=== PATIENT | female | born 1955 | race Caucasian/White ===

== ENCOUNTER 2017-04-22 05:45 | Day surgery (SDC) | payer BC, SELFPAY ==
--- NOTE | 2017-04-18 14:48 | EKG12_ITS ---
Test Reason : PRE OP Blood Pressure : / mmHG Vent. Rate : 084 BPM Atrial Rate : 084 BPM P-R Int : 146 ms QRS Dur : 072 ms QT Int : 382 ms P-R-T Axes : 074 071 071 degrees QTc Int : 451 ms Normal sinus rhythm Normal ECG Confirmed by DEBBIE PAIGE, RACHEL ([id number]), non linear editor MERY GOODE ([id number]) on 04/19/2017 12:00:07 PM Referred By: Fanta Holder Confirmed By:RACHEL LEWIS MD
[2017-04-18 16:07] LABS: Hematocrit 38.1 % (37-47); Hemoglobin 12.7 g/dl (12.0-15.0); Mean Corp Hgb Conc 33.3 g/gl (32-36); Mean Corpuscular Hgb 34.3 pg (27.0-32.0); Mean Platelet Vol. 11.2 fl (6.2-12.0); Platelet Count 225 K/mm3 (150-450); RBC Distribution Width SD 51.9 fl (35.1-43.9); White Blood Count 4.3 K/mm3 (4.4-11.0)
[2017-04-18 16:08] LABS: Scan Indicated on CBC? Y/N NO
[2017-04-22] VITALS (10 sets, daily range): BP systolic 105–169; BP diastolic 64–93; PULSE 68–124; RESP 16–20; TEMP 36.5–37.4; O2SAT 91–97; BMI 28.9
--- NOTE | 2017-04-22 | MASS_PTH ---
PATIENT: HENRY VIDES LOC: [facility] [place] U[place][id number] AGE/SX: 62/F ROOM: RE04/22/[address]: Dr. Fanta Holder MD : 1955 BED: DIS: 04/22/2017 SPEC #: [id number] RECD: 04/22/17 12:20 STATUS: GERARDO QUIQUE #: [id number] DAVE: 04/22/17 00:[address]: Fanta Holder DEPT: SURGICAL PATHOLOGY RECD BY: Lance Bentley ENTERED: 04/22/17 12:21 SP TYPE: Mass OTHR DR: Dr. 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 Fallopian tube - no pathologic diagnosis. Paratubal cyst. THIERRY:caty 04/26/17 MICROSCOPIC DESCRIPTION Slides are reviewed. GROSS DESCRIPTION Received in fixative is one container labeled with the patient's name and designated left adnexal mass. The specimen consists of a cystic, smooth glistening pink-white ovary measuring 7 x 5.5 x 3.2 cm. Adjacent to this is a fallopian tube measuring 5 cm in length and with an average diameter of 0.7 cm. Adjacent to the fimbriated end of the fallopian tube is a smooth, glistening cyst measuring 1.2 cm and containing clear fluid. No tubo-ovarian adhesions are identified. The fimbriated end has a normal villous appearance. The external surface of the ovary is smooth and glistening. No papillary projections or excrescences are seen. The external surface is inked and the ovary is serially sectioned. Serial sections reveal the ovary to contain hair, yellow-bain mucoid material and oily material. The cyst wall ranges in thickness from 0.1 to 0.3 cm with focal areas that cut with a gritty sensation. Assembly Leader sections are submitted in four cassettes as follows: 1 ? ovary, fallopian tube and paratubal cyst, 2-4 ? cystic structure and cystic ovary with #4 submitted after appropriate decalcification. / AM:caty 04/22/17 TC:1 CPT: 15116, 43805
--- NOTE | 2017-04-22 | FLU_PTH ---
PATIENT: HENRY VIDES [place] [facility] [place][id number] AGE/SX: 62/F ROOM: RE04/22/[address]: Dr. Fanta Holder MD : 1955 BED: DIS: 04/22/2017 SPEC #: [id number] RECD: 04/22/17 12:20 STATUS: GERARDO QUIQUE #: [id number] DAVE: 04/22/17 00:[address]: Fanta Holder DEPT: CYTOLOGY RECD BY: Lance Bentley ENTERED: 04/22/17 12:20 SP TYPE: Fluid OTHR DR: Dr. Robbi Grant DO Tissues: Pelvis, NOS Procedures: Pap Stain (control) Special Stain Group II Surgery Specimen Level IV Cell Block Cytospin Fluid HEADER OPERATION: Laparoscopic salpingo-oophorectomy, single port PRE-OP DIAGNOSIS: Left complex ovarian mass TISSUE SUBMITTED: Cell washings for cytology DIAGNOSIS CYTOLOGY Cell washings for cytology (cytospin and cell block): Negative for malignant cells. SJ:rg 04/26/17 CYTOLOGY STUDY Slides are reviewed. The specimen consists of mesothelial cells and inflammatory cells. CYTOLOGY GROSS Received is 2 ml of cloudy fluid labeled with the patient's name and and designated per the requisition as cell washings. Submitted for cytology preparation including cell block. 04/22/17 TC:5 CPT: 82052, 18009
[2017-04-22] MEDS: Lubricating Jelly 60 GM Tube 30 GM TOPICAL (07:30)
[2017-04-22] MEDS: Bupivacaine 0.25% 30 ML Vial (08:46)
--- NOTE | 2017-04-22 09:14 | PCM.DC.TUB ---
Discharge Diet: Light diet - advance as tolerated Discharge Activity: May Not Drive - for 72 hours, May Shower Return to work on:: 04/29/17 May resume sexual activity in: 2 weeks Call your doctor if your incision/area has: Continuous Slow Oozing, Sudden Increased Bleeding, Increased Pain/ Swelling Call your doctor if you observe: Fever of 101 or Higher, Inability to urinate, Inability to have a bowel movement, Uncontrolled pain Suture Line Care: Avoid Pulling/Pushing Remove Dressing in (days):: 2 Cleanse incision/area with: Keep Dressing Clean & Dry Allergies/Adverse Reactions: Allergies latex Allergy (Verified 04/17/17 14:21) blisters Medications to take at Discharge Escitalopram Oxalate [Lexapro] 20 mg PO DAILY 04/17/17 Lansoprazole [Prevacid] 15 mg PO DAILY 04/17/17 Valsartan [Diovan] 160 mg PO DAILY 04/17/17 Primary Care Physician: Robbi Grant DO [Primary Care Provider] - Please Follow Up With: Fanta Holder MD When: Proposed Discharge Date: 04/22/17
--- NOTE | 2017-04-22 09:16 | PCM.OP.BLANK ---
Problem List (1) Ovarian cyst, left Status: Acute Operative Report Date of Procedure: 04/22/17 Preop: Complex left ovarian cyst Post op: Complex left ovarian cyst Ahderent ovarian cuyst to posterior cul de sac fibroid uterus Procedure: Single incision laparoscopic left salpingooophorectomy\ EBL : 10ml UO : 200ml Asst: Eleazar Muse Complications: none noted Annesth: Maynor Tang Procedure: Under GA, pt was prepped and draped in sterile extended ski position and bush placed to continuous drainage. A Jarcho tenaclum was placed for uterine manipulation when the Hulka would not advance Following a glove change attention was turned to the abdomen where a subumbilical incision was made and peritoneum entered and the gelpoint placed. A pneumoperitoneum was created. The pelvis was inspected with findings of a normal Rt ovary and a large cystic left ovary which was smooth. No peritoneal seedlings were noted. The pelvis was irrigatedand 10 ml of washings sent for cytology. With traction on the uteroovarian ligament, the infundibulopelvic ligament was cauterized several times and cut with the harmonic scalpel. Cautery and cutting was continued along the broad ligament till the round ligament and cornua were excised. Effforts to lift the ovary out of the culde sac showed it was attached at it s base, and these adhesions had to be cauterized and cut over a 1 inch square area, to free the adnexa intact. It was brought to the subumbilical opening, where it would not fit through, so a large bore needle was used to aspirate the cystic part of the ovary for thick milky fluid, ensuring no spill into the abdominal cavity, and then the cyst could be removed. The pelvis was inspected for hemostasis which was good and irrigated out for some dark blood. There was no active bleeding at 8mm pressure, and the pneumoperitoneum was reduced and the subumbilical incision repaired with multiple interrupted 0 Vicryl sutures to fascia, 2-0 Vicryl to the subcutaneous tissue, and 4-0 Monocryl subcuticularly. 10 ml of 1/4% Bupivacaine was injected around the incision and an op site applied. Sponge , needle counts were correct x 2. Patient was taken to the recovery room awake and in stable condition
[2017-04-22] MEDS: HYDROcodone Bitartrate/Apap 5/325 Tablet PO (12:04)
== END 2017-04-22 12:40 | disposition home or self-care (01) ==
LOC: SDC 05:45 → AC 05:46
PROVIDERS: Family Provider Family Medicine; PCP Family Medicine; Visit Provider Obstetrics & Gynecology Gynecology
PROC: (CPT 58720; principal; 2017-04-22 07:15)
DX: D27.1 Benign neoplasm of left ovary (principal); D25.9 Leiomyoma of uterus, unspecified; N83.8 Other noninflammatory disorders of ovary, fallopian tube and broad ligament
CPT/HCPCS: 00840; 58661; 36415; 85027; 86850; 86900; 88108; 88305; 88307; 88311; 88313; 93005; J7120; J2405; J3490

== ENCOUNTER → 2017-12-10 14:05 | Outpatient (CLI) | payer BC, SELFPAY ==
[2017-12-10 15:14] LABS: Absolute Lymphocyte Count 1.11 X10^3/ul (0.83-4.51); Basophil# 0.02 X10^3/uL; Basophil% 0.4 % (0-1); Eosinophil# 0.25 X10^3/uL; Eosinophils% 4.9 % (0-5); Hematocrit 36.8 % (37-47); Lymphocyte # 1.11 X10^3/ul (4.0); Lymphocyte % 21.7 % (19-41); Mean Corp Hgb Conc 32.6 g/gl (32-36); Mean Corpuscular Hgb 33.3 pg (27.0-32.0); Mean Corpuscular Volume 102.2 fL (81-99); Mean Platelet Vol. 10.8 fl (6.2-12.0); Monocyte# 0.72 X10^3/uL; Monocyte% 14.1 % (0-10); Neutrophil # 3.02 X10^3/uL (2.7-7.7); Neutrophil % 58.9 % (47-70); Platelet Count 254 K/mm3 (150-450); RBC Distribution Width CV 14.2 % (11.6-14.6); RBC Distribution Width SD 53.3 fl (35.1-43.9); White Blood Count 5.1 K/mm3 (4.4-11.0)
[2017-12-10 15:15] LABS: POSITIVE COUNT NO; POSITIVE DIFFERENTIAL NO; POSITIVE MORPHOLOGY NO
[2017-12-10 15:46] LABS: ALB/GLOB Ratio 0.9 RATIO (0.9-2.4); AST(SGOT) 25 U/L (15-37); Alanine Aminotransfer ALT/SGPT 29 U/L (13-56); Albumin, Serum 3.4 g/dL (3.2-5.0); Alkaline Phosphatase 91 U/L (45-117); Anion Gap 10 (5-15); BUN 19 mg/dL (7-18); BUN/Creat Ratio 22.7 RATIO (10-20); Calcium,Total 8.3 mg/dL (8.5-10.1); Chloride 108 mmol/L (98-107); Creatinine, Serum 0.84 mg/dL (0.55-1.02); EST Glomerular Filtration Rate 73 mL/min (>60); Est Glom Filt Rate - Afr Amer 88 mL/min (>60); Globulin 3.8 g/dL (2.2-4.2); Glucose 95 mg/dL (74-106); Potassium 3.5 mmol/L (3.5-5.1); Protein, Total 7.2 g/dL (6.4-8.2); Sodium Level 142 mmol/L (136-145); Thyroid Stim Hormone (TSH) 1.15 uIU/mL (0.358-3.74)
== END ==
PROVIDERS: Family Provider Family Medicine; PCP Family Medicine; Visit Provider Family Medicine
DX: I10 Essential (primary) hypertension (principal)
CPT/HCPCS: 36415; 80053; 84443; 85025

== ENCOUNTER → 2018-02-26 11:59 | Outpatient (CLI) | payer BC, SELFPAY ==
[2018-02-26 14:12] LABS: CRP < 2.90 mg/L (0.0-3.0)
[2018-02-26 14:18] LABS: Vitamin D,25 Hydroxy 31.8 ng/mL (29.95-100.01)
[2018-02-27 16:09] LABS: Endomysial Antibody IgA Negative (Negative); Immunoglobulin A 127 mg/dL (87-352)
[2018-02-28 11:56] LABS: Hep C Antibodies <0.1 s/co ratio (0.0-0.9); t-Transglutaminase IgA <2 U/mL (0-3)
== END ==
PROVIDERS: Family Provider Family Medicine; PCP Family Medicine; Referring Provider Internal Medicine Gastroenterology; Visit Provider Internal Medicine Gastroenterology
DX: R19.7 Diarrhea, unspecified (principal); Z11.59 Encounter for screening for other viral diseases
CPT/HCPCS: 36415; 82306; 82784; 83516; 86140; 86255; 86803

== ENCOUNTER → 2019-12-08 12:51 | Outpatient (CLI) | payer BC, SELFPAY ==
--- NOTE | 2019-12-08 12:52 | BI_ITS ---
MAMMOGRAPHY - BILATERAL SCREENING REASON FOR EXAM: Female, 64 years old. Routine annual screening examination. PERTINENT HISTORY: Non-contributory. History of bilateral breast implants. TECHNIQUE: Digital bilateral breast sada (3D mammographic acquisition) in the CC and MLO projections. 2-D mediolateral oblique (MLO) and craniocaudad (CC) views of both breasts were obtained. CAD: Full Field Digital Mammography with Computer Added Detection was performed. COMPARISON: Comparison is made with prior examination 12/27/2015 and 02/08/2017. FINDINGS: Breast Composition: The breasts are heterogeneously dense, which may obscure small masses. There are no dominant masses or suspicious calcifications. Stable appearance of the bilateral breast implants. No other significant abnormalities are identified. There has been no significant change since the prior study. BI/SCREEN MAMM (CAD) W/SADA BILAT IMPRESSION: Stable bilateral screening mammogram. Yearly follow-up mammogram recommended. (A) ASSESSMENT CATEGORY: BIRADS Category 2: Benign. A letter regarding these results will be sent to the patient by the facility within 30 days. Approximately 10% of breast cancers are not detected by mammography. A normal mammogram should not delay biopsy of a clinically suspicious abnormality. [id number] Electronically Signed: Emerson Rico, at 13:58 EDT , Service support ,
--- NOTE | 2019-12-08 13:23 | BD_ITS ---
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 COMPARISON: Comparison is made with prior study dated 12/27/2015. FINDINGS: Lumbar Spine (L1-L4): g/cm2 (0.912) / T-score (-2.2) / Z-score (-0.6) Findings are suggestive of osteopenia with a high fracture risk. Left Femur Total: g/cm2 (0.912) / T-score (-0.8) / Z-score (0.5) Left Femoral Neck: g/cm2 (0.830) / T-score (-1.5) / Z-score (0.0) Right Femur Total: g/cm2 (0.852) / T-score (-1.2) / Z-score (0.0) Right Femoral Neck: g/cm2 (0.810) / T-score (-1.6) / Z-score (-0.2) The T-Scores on the most recent prior examination were: Lumbar Spine (L1-L4): There has been worsening of bone density since the previous examination. Left Femur Total: which represents an improvement of 0.1%. Right Femur Total: which represents a worsening of 3.3%. BD/Dexa Bone Density Study IMPRESSION: The patient is considered osteopenic as outlined below according to World Jean Organization (WHO) criteria with a high fracture risk. There has been worsening of bone density since the previous examination. Reference Information: The T-score is the number of standard deviations above or below the standard which is normal for young adults at their peak bone mineral density. The World Health Organization (WHO) interprets the T-scores as follows: Above -1 Normal bone density Between -1 and -2.5 Osteopenia Equal to / or below -2.5 Osteoporosis As a practical clinical guideline, osteopenia may be graded as follows: Mild -1 through -1.5 Moderate -1.6 through -2.0 Severe -2.1 through -2.4 The Z-score is the number of standard deviations above or below age-matched controls. A Z-score of less than -1.5 would be considered abnormal. References: 1. NIH Osteoporosis and Related Bone Diseases http://www.osteo.org 2. International Society for Clinical Densitometry http://www.iscd.org 3. National Osteoporosis Foundation http://www.nof.org Electronically Signed: Emerson Rico, at 15:33 EDT , Service support ,
== END ==
PROVIDERS: PCP Nurse Practitioner; Referring Provider Nurse Practitioner; Visit Provider Nurse Practitioner
DX: Z12.31 Encounter for screening mammogram for malignant neoplasm of breast (principal); Z78.0 Asymptomatic menopausal state
CPT/HCPCS: 77063; 77067; 77080

== ENCOUNTER → 2020-02-25 12:18 | Outpatient (CLI) | payer SELFPAY ==
--- NOTE | 2020-02-25 12:23 | CT_ITS ---
STUDY: CARDIAC CALCIUM SCORING - CT CHEST REASON FOR EXAM: Female, 64 years old. HTN RADIATION DOSAGE (If Supplied By Facility): CTDIvol = ( 12.19 ) mGy, DLP = ( 219.42 ) mGycm TECHNIQUE: Axial non-enhanced images were acquired through the heart for the sole purpose of measuring coronary artery calcium. Individualized dose optimization techniques were used for this CT. COMPARISON: None. FINDINGS: Visualized surrounding anatomy: Normal. Left Main Coronary Artery: 0 Left Anterior Descending Artery: 39.7 Left Circumflex Artery: 0.73 Right Coronary Artery: 0 Other: Large hiatal hernia noted. Status post left breast prosthesis placement Total Calcium Score: 40.5 CT/CCTA Calcium Scoring IMPRESSION: A Calcium Score of 40.5 places the patient in the approximate 50-75 percentile, based on the RODRIGUEZ data calculator. Please go to: www.rodriguez-nhlbi.org/Calcium/input.aspx , for a description of the calculator. Electronically Signed: Kurtis Cardenas MD at 19:24 EST , Service support ,
[2020-02-25 12:31] VITALS: BP 135/79; PULSE 62; RESP 14; O2SAT 95; BMI 25.7
--- NOTE | 2020-02-25 13:01 | CA.SCORE ---
Calcium Scoring Date of Study:: 02/25/20 Coronary Calcium Scoring: High-resolution Computed Tomographic imaging of the chest was performed on [02/25/2020 ], with particular attention paid to the coronary arteries. Images from the examination were analyzed for the presence and extent of coronary artery calcification , using coronary calcium quantification software. The patient tolerated the procedure well and there were no complications. The results of the coronary calcification analysis are provided below. - Findings Left Main (LM): 0 Left Anterior Descending (LAD): 39 Left Circumflex (LCX): 0.7 Right Coronary Artery (RCA): 0 Total Agatston Score: 39.7 Calcium Scoring Interpretation: 0 No identifiable atherosclerotic plaque. Very low cardiovascular disease risk. <5% chance of presence coronary artery disease A Negative Examination 1-10 Minimal Plaque burden. Significant coronary artery disease very unlikely. 11-100 Mild plaque burden. Likely mild or minimal coronary atherosclerosis. 101-400 Moderate plaque burden Moderate non-obstructive coronary artery disease highly likely. Over 400 Extensive plaque burden. High likelihood of at least one significant coronary stenosis (>50% diameter) Calcium Score: 11 - 100 Likely mild or minimal coronary stenosis - The above suggests mild coronary artery disease. Risk factor assessment should include
== END ==
PROVIDERS: PCP Nurse Practitioner; Referring Provider Nurse Practitioner; Visit Provider Nurse Practitioner
DX: I10 Essential (primary) hypertension (principal)
CPT/HCPCS: 75571; 76380

== ENCOUNTER 2020-05-14 15:14 | Emergency (ER) | payer OTHER, SELFPAY ==
[2020-02-25 12:31] VITALS: BMI 25.7
[2020-05-14 15:15] VITALS: BP 160/92; PULSE 77; RESP 18; TEMP 36.1; O2SAT 99; BMI 25.7
--- NOTE | 2020-05-14 15:33 | ED.DCSUM_ITS ---
History of Present Illness Chief Complaint: Upper Extremity Injury Informant: Patient Narrative: 65-year-old female states that she fell on the ice today falling onto her right hand. She notes her wrist. But swelling. Limited range of motion due to pain. She denies any other injuries. Past Medical History - Allergies and Home Meds Allergies/Adverse Reactions: Allergies latex Allergy (Verified 05/14/20 15:16) blisters Primary Care Physician: Celena Baca OPERATIONS ASSOCIATE, OPERATIONS ASSOCIATE-C [Primary Care Provider] - Past Medical History: - - GERD hypertension depression Surgical History: noncontributory Lives: Spouse/ Significant Other Smoking Status: Never smoker Drugs: None Review of Systems General: Denies: Chills, Fever, Sweats Eyes: Denies: Visual changes - bilaterally, Diplopia ENT: Denies: Rhinorrhea, Sore throat Cardiovascular: Denies: Chest pain, Palpitations Respiratory: Denies: Dyspnea, Cough, Dyspnea on exertion Gastrointestinal: Denies: Abdominal pain, Nausea, Vomiting, Diarrhea, Melena, Hematochezia Genitourinary: Denies: Dysuria, Hematuria, Frequency Musculoskeletal: Reports: Swelling, Extremity Pain. Denies: Back pain Skin: Denies: Rash, Wounds Neurological: Denies: Headache, Weakness, Numbness Physical Exam Vital Signs/Narrative: Vital Signs Temp Pulse Resp BP Pulse Ox 05/14/20 15:15 97 F L 77 18 160/92 H 99 Inital Vital Signs reviewed: Yes General: Well nourished, Well developed, No Acute Distress Head: Normocephalic, Atraumatic Eyes: Perrl, EOMI ENT: Moist mucous membranes, No rhinorrhea Neck: Supple, Nontender Cardiovascular: Regular rate, Regular rhythm, No murmurs Respiratory: No distress, CTA bilaterally, Chest nontender Abdomen: Soft, Nontender, Nondistended, Normal bowel sounds Back: Nontender, Normal Inspection Extremities: Tenderness - Tenderness and mild swelling over the dorsum of the right wrist. Limited range of motion due to pain. Neurovascular intact. No elbow shoulder findings. Fingers are without trauma. Skin: Normal color, No rash Neurological: Alert, Oriented x3, Cranial nerves II-XII grossly intact, Normal Strength, Normal Sensation Psychological: Normal affect, Normal Mood Diagnostic/Tx/Re-eval Clinical Impression(s) from Imaging Studies Wrist X-Ray 05/14/20 15:38 IMPRESSION: Transverse fracture of the distal radius extending to the distal radioulnar joint, no significant displacement but with mild volar apical angulation. Electronically Signed: Cecil Garcia MD (Brooks) at 16:01 EST , Service support , - Medical Decision Making My interpretation of three-view wrist films is no acute fracture of the distal radius with minimal displacement. Patient was placed in a well-padded AP plaster splint. Neurovascular intact pre and post application. Right for Webster for pain control. She is to follow-up with orthopedics. She does not remember who did her left wrist surgery in the past but believes it was [facility]. Dr. Lambert is on-call for them today. ED Disposition - Plan for ED Patient: Disposition: Home or Assisted Living Diagnosis: Distal radius fracture, right Instructions: ED Fracture, Wrist, General Prescriptions: Hydrocodone Bitart/Apap 5-325 [Webster 5MG-325MG] 1 tab PO Q4H PRN PRN 2 Days #10 tab PRN Reason: Pain Prescription Printed Referrals: Taye Lambert, [STAFF PHYSICIAN] - As soon as possible
--- NOTE | 2020-05-14 15:38 | RAD_ITS ---
EXAM: XR RIGHT WRIST COMPLETE, 3 OR MORE VIEWS CLINICAL INDICATION: FALL, SWELLING, PAIN TECHNIQUE: Frontal, lateral and oblique views of the right wrist. This report was created using [employer] report generation technology. COMPARISON: None. FINDINGS: BONES/JOINTS: Transverse fracture of the distal radius extending to the distal radioulnar joint, no significant displacement but with mild volar apical angulation. No sclerotic or destructive changes observed. SOFT TISSUES: Unremarkable. No soft tissue swelling or gas. No radiopaque foreign body. RAD/Wrist min 3 Views IMPRESSION: Transverse fracture of the distal radius extending to the distal radioulnar joint, no significant displacement but with mild volar apical angulation. Electronically Signed: Cecil Garcia MD (Brooks) at 16:01 EST , Service support ,
[2020-05-14 16:20] VITALS: RESP 14
== END 2020-05-14 16:30 | disposition home or self-care (01) ==
LOC: ED 16:40
PROVIDERS: Emergency Provider Emergency Medicine; PCP Nurse Practitioner
DX: S52.501A Unspecified fracture of the lower end of right radius, initial encounter for closed fracture (principal); W00.0XXA Fall on same level due to ice and snow, initial encounter; Y93.9 Activity, unspecified; Y92.9 Unspecified place or not applicable; F32.9 Major depressive disorder, single episode, unspecified; Z79.899 Other long term (current) drug therapy
CPT/HCPCS: 29125; 73110; 99282

== ENCOUNTER → 2020-07-05 09:39 | Outpatient (CLI) | payer OTHER, SELFPAY ==
--- NOTE | 2020-07-05 09:45 | RAD_ITS ---
STUDY: X-RAY - ESOPHAGUS (BARIUM SWALLOW) WITH FLUOROSCOPY REASON FOR EXAM: Female, 65 years old. HIATAL HERNIA TECHNIQUE: 15 view(s) of the esophagus were obtained following swallowing of barium. FLUOROSCOPY TIME (if supplied): (31 seconds) minutes/seconds COMPARISON: None. FINDINGS: There is no demonstrated esophageal foreign body. There is no demonstrated stricture or mucosal abnormality. There is a large hiatal hernia with intrathoracic herniation of the fundus of the stomach. No evidence of gastroesophageal reflux. The patient ingested a 12 mm tablet at bedtime without any difficulty. There is atherosclerotic tortuosity of the aortic arch and descending thoracic aorta. Normal visualized pulmonary parenchyma. Normal visualized osseous structures of the thorax. RAD/Esophagus Dual Contrast IMPRESSION: Large hiatal hernia. Electronically Signed: Emerson Rico MD at 15:28 EDT , Service support ,
== END ==
PROVIDERS: PCP Nurse Practitioner; Referring Provider Nurse Practitioner; Visit Provider Nurse Practitioner
DX: K44.9 Diaphragmatic hernia without obstruction or gangrene (principal)
CPT/HCPCS: 74221

== ENCOUNTER → 2020-07-25 14:48 | Outpatient (CLI) | payer OTHER, SELFPAY ==
[2020-07-19 14:43] VITALS: BMI 25.7
--- NOTE | 2020-07-25 14:49 | CT_ITS ---
INDICATION: right groin pain EXAMINATION: CT Pelvis W/ Contrast Injection TECHNIQUE: Helically acquired images were obtained of the pelvis after IV contrast. A radiation dose optimization technique was used for this scan. IV Contrast dosage and agent: 100 cc ISOVUE-300 Oral contrast: None. COMPARISON: None. FINDINGS: Vasculature: Unremarkable GI Tract: Unremarkable Lymphadenopathy: None Peritoneum: No ascites. Bladder: Unremarkable Reproductive organs: Multiple calcified fibroids. The vaginal wall is hyperenhancing. Bones/Soft tissues: Mild scattered degenerative changes of the visualized spine. 2.6 cm expansile lesion of the coccyx. CT/Pelvis WITH IV Contrast IMPRESSION: Multifibroid uterus. Hyperenhancing vaginal wall is of uncertain significance. A pelvic MRI may be beneficial if clinically warranted. 2.6 cm expansile lesion of the coccyx is indeterminate. Two possible etiologies include enchondroma or exostosis. Electronically Signed: Tyler Cruz MD at 23:30 EDT Tel , Service support ,
[2020-07-25 15:20] LABS: CREATININE FINGERSTICK 1.2 mg/dL (0.55-1.02)
== END ==
PROVIDERS: PCP Nurse Practitioner; Referring Provider Surgery; Visit Provider Surgery
DX: R10.31 Right lower quadrant pain (principal)
CPT/HCPCS: 72193

== ENCOUNTER 2020-08-08 21:40 | Emergency (ER) | payer OTHER, SELFPAY ==
[2020-07-19 14:43] VITALS: BMI 25.7
[2020-08-08 21:41] VITALS: BP 149/98; PULSE 101; RESP 16; TEMP 37.6; O2SAT 97; BMI 27.9
--- NOTE | 2020-08-08 22:17 | EKG12_ITS ---
Test Reason : CP Blood Pressure : / mmHG Vent. Rate : 087 BPM Atrial Rate : 087 BPM P-R Int : 148 ms QRS Dur : 078 ms QT Int : 362 ms P-R-T Axes : 065 056 060 degrees QTc Int : 435 ms Normal sinus rhythm Normal ECG Confirmed by IMMANUEL PAIGE, PREET ([id number]), editor continuity and script SAMMY GRIDER ([id number]) on 08/09/2020 10:10:05 AM Referred By: Confirmed By:PREET GAMBINO MD
[2020-08-08 22:22] VITALS: O2SAT 96
--- NOTE | 2020-08-08 22:25 | RAD_ITS ---
STUDY: X-RAY CHEST REASON FOR EXAM: Female, 65 years old. Epigastric pain and shortness of breath for 3 weeks. Pain increases with exertion and movement. TECHNIQUE: Single AP portable view of the chest. COMPARISON: None. FINDINGS: The lungs are clear and expanded. There is no demonstrated pleural abnormality. Normal size heart. Normal mediastinum and rachana. Normal visualized pulmonary arteries. There is atherosclerotic calcification of the aortic arch with tortuosity. Normal visualized thoracic spine. Normal visualized ribs, clavicles, and shoulders. Large retrocardiac hiatal hernia. RAD/Chest 1 View (Portable) IMPRESSION: Retrocardiac hiatal hernia. There is no acute cardiopulmonary disease. Electronically Signed: Gonzalo Moncada DO at 22:50 EDT Tel [phone], Service support ,
[2020-08-08 22:56] LABS: Absolute Lymphocyte Count 1.03 X10^3/uL (0.83-4.51); Absolute Neutrophil Count 5.6 X10^3/uL (2.0-7.7); Basophil# 0.04 X10^3/uL; Basophil% 0.5 % (0-1); Eosinophil# 0.19 X10^3/uL; Eosinophils% 2.4 % (0-5); Hematocrit 39.5 % (37-47); Hemoglobin 13.2 g/dL (12.0-15.0); Lymphocyte # 1.03 X10^3/ul (0.83-4.51); Lymphocyte % 12.8 % (19-41); Mean Corp Hgb Conc 33.4 g/dL (32-36); Mean Corpuscular Hgb 34.2 pg (27.0-32.0); Mean Corpuscular Volume 102.3 fL (81-99); Mean Platelet Vol. 10.6 fl (6.2-12.0); Monocyte# 1.17 X10^3/uL; Monocyte% 14.5 % (0-10); NRBC Flagged by Analyzer 0 % (0-5); Neutrophil % 69.4 % (47-70); Platelet Count 252 K/mm3 (150-450); RBC Distribution Width CV 13.2 % (11.6-14.6); Red Blood Count 3.86 M/mm3 (4.2-5.4); White Blood Count 8.1 K/mm3 (4.4-11.0)
[2020-08-08 23:00] VITALS: BP 149/93; PULSE 79; RESP 18; O2SAT 96
[2020-08-08 23:08] LABS: Anion Gap 5 (5-15); BUN 18 mg/dL (7-18); BUN/Creat Ratio 21.8 RATIO (10-20); Calcium,Total 8.9 mg/dL (8.5-10.1); Chloride 107 mmol/L (98-107); Creatinine, Serum 0.83 mg/dL (0.55-1.02); EST Glomerular Filtration Rate 73 mL/min (>60); Est Glom Filt Rate - Afr Amer 89 mL/min (>60); Estimated Creatinine Clearance 57.57 ml/min; Glucose 99 mg/dL (74-106); Potassium 3.5 mmol/L (3.5-5.1); Sodium Level 139 mmol/L (136-145)
[2020-08-08 23:25] LABS: Lactic Acid 0.7 mmol/L (0.4-1.9)
--- NOTE | 2020-08-08 23:43 | EDS_ITS ---
HPI History of Present Illness Chief Complaint: Chest Pain Informant: patient Narrative Narrative: Patient presented to the emergency department with chest pain and shortness of breath. She tells me that last month she was seen by surgery was found to have a large hiatal hernia and is currently awaiting testing so she can have surgery for that. She states at that time she had been relatively sedentary given that she was off work due to a wrist fracture from April. She states she is subsequently started back at work at [employer]. She states when she exerts herself she feels more short of breath and by the end of her shift she is having a lot of pain in her back and also in her chest. She notes early satiety. She notes she had a stress test several years ago that was negative. She states that the symptoms are similar to what they were when she saw surgery but are worsening. She is concerned that she may be strangulating her hernia. [facility] Medical History (Updated 08/08/20 @ 23:[address] Gilbert Watkins DO) Anxiety Celiac disease GERD (gastroesophageal reflux disease) Hiatal hernia HTN (hypertension) Home Medications escitalopram oxalate 10 mg PO DAILY 04/17/17 [History Last Taken Unknown] levomefolate calcium 15 mg tablet 15 mg PO DAILY 07/19/20 [History Last Taken Unknown] valsartan 40 mg PO DAILY 08/08/20 [History Last Taken Unknown] Allergy/AdvReac Type Severity Reaction Status Date / Time latex Allergy blisters Verified 08/08/20 21:44 Family History (Updated 07/19/20 @ 14:41 by Vida Johnson) Mother Hypertension Thyroid disorder Surgical History History of colonoscopy History of femoral hernia repair History of left oophorectomy Social History (Updated 08/08/20 @ 23:[address] Gilbert Watkins DO) Smoking Status: Never smoker substance use type: does not use ROS ROS ED Constitutional Constitutional ED: Denies chills or weight loss Eyes Eyes: Denies change in vision or diplopia ENT ENT ED: Denies ear pain, rhinorrhea or sore throat Cardiovascular Cardiovascular: Reports chest pain; Denies orthopnea, palpitations or racing heartbeat Respiratory/Chest Respiratory/Chest: Reports dyspnea; Denies cough or orthopnea Gastrointestinal Gastrointestinal: Denies abdominal pain, diarrhea, nausea or vomiting Genitourinary Genitourinary ED: Denies dysuria, hematuria or urinary frequency Musculoskeletal Musculoskeletal: Reports back pain; Denies arthralgias or myalgias Integumentary Denies abscess or rash Neurologic Neurologic: Denies headache(s) or weakness Psychiatric Psychiatric: Denies anxiety, depression, suicidal ideation or suicidal thoughts Endocrine Endocrinology: Denies polydipsia, polyphagia or polyuria Allergic/Immunologic Allergic/Immunologic ED: Denies mouth swelling, tongue swelling or urticaria EXAM Physical Exam Const Vital Signs: 08/08/20 21:41 08/08/20 22:22 08/08/20 23:00 Temperature 99.6 F H Temperature Source Temporal Pulse Rate 101 H 79 Respiratory Rate 16 18 Blood Pressure 149/98 H 149/93 H Blood Pressure Mean 115 111 Pulse Ox 97 96 96 Oxygen Delivery Method Room Air Room Air Room Air Positive well nourished and well developed General Appearance ED: well developed HEENT Reports normocephalic, head/scalp atraumatic and moist mucous membranes Eyes PERRL and EOMs intact bilaterally Neck no lymphadenopathy, supple and no JVD Resp normal respiratory effort and clear to auscultation bilaterally Cardio regular rate, regular rhythm and no murmurs GI normal to inspection, nondistended, normoactive bowel sounds and non-tender Palpation: soft Back/Spine no CVA tenderness and normal ROM Extremity normal to inspection General Extremety ED: Negative for edema General Extremity: Negative for edema Neuro oriented x3 and CN's II-XII intact bilaterally Sensorium / Orientation: alert Motor Exam: strength 5/5 throughout Psych mental status grossly normal Mood & Affect: Negative for depressed or tearful Skin no rashes or lesions noted and no wounds MDM MDM MDM Narrative Medical decision making narrative: My interpretation of the chest x-ray is hiatal hernia. Troponin is negative. Her lactic acid is normal. White count is normal. EKG is a normal sinus rhythm with no concerning features. I think is most likely that the patient's symptoms are related to her hiatal hernia. Patient was advised that she should call her surgeon inform them of worsening symptoms. She is worried because she does not have any further testing until August and does not have a follow-up until September 06. Patient to return if worsening or concerns Lab Data Attestation: I reviewed the patient's lab results. Labs: Laboratory Results - last 24 hr 08/08/20 08/08/20 08/08/20 22:00 22:00 22:52 WBC 8.1 RBC 3.86 L Hgb 13.2 Hct 39.5 MCV 102.3 H MCH 34.2 H MCHC 33.4 RDW Std Deviation 50.0 H RDW Coeff of Demetri 13.2 Plt Count 252 MPV 10.6 Immature Gran % (Auto) 0.400 Neut % (Auto) 69.4 Lymph % (Auto) 12.8 L [place] % (Auto) 14.5 H Eos % (Auto) 2.4 Baso % (Auto) 0.5 Absolute Neuts (auto) 5.6 Absolute Lymphs (auto) 1.03 Nucleated RBC % 0 Sodium 139 Potassium 3.5 Chloride 107 Carbon Dioxide 27.0 Anion Gap 5 BUN 18 Creatinine 0.83 Estim Creat Clear Calc 57.57 Est GFR (MDRD) Af Amer 89 Est GFR (MDRD) Non-Af 73 BUN/Creatinine Ratio 21.8 H Glucose 99 Lactic Acid 0.7 Calcium 8.9 Troponin I < 0.015 Radiography Diagnostic Testing: Radiology Impression Chest X-Ray 08/08/20 22:25 IMPRESSION: Retrocardiac hiatal hernia. There is no acute cardiopulmonary disease. Electronically Signed: Gonzalo Moncada DO at 22:50 EDT Tel [phone], Service support , EKG Initial EKG: Attestation: I personally reviewed and interpreted this EKG as follows: Comments: EKG is a normal sinus rhythm at a rate of 87 with no concerning features of ACS or ectopy noted Discharge Plan Triage Chief Complaint: Chest Pain ED Provider: Gilbert Watkins Dx/Rx/DC Orders Clinical Impression: Chest pain, Dyspnea, Hernia, hiatal Instructions: ED Hiatal Hernia Prescriptions: No Action levomefolate calcium 15 mg tablet 15 mg PO DAILY RF: 0 escitalopram oxalate 20 MG tablet 10 mg PO DAILY RF: 0 valsartan 40 mg Tablet 40 mg PO DAILY RF: 0 Primary Care Provider: Celena Baca NP Referrals: Beau Randolph MD [STAFF PHYSICIAN] - (Please call the office in the morning and inform them of your worsening symptoms in her ED visit) Celena Baca REPROGRAPHICS ASSOCIATE, REPROGRAPHICS ASSOCIATE-C [Primary Care Provider] - Disposition Disposition: Home, self care
[2020-08-09 00:07] VITALS: BP 165/105; PULSE 78; RESP 15; O2SAT 98
== END 2020-08-09 00:07 | disposition home or self-care (01) ==
PROVIDERS: Emergency Provider Emergency Medicine; PCP Nurse Practitioner
DX: K44.9 Diaphragmatic hernia without obstruction or gangrene (principal); R07.9 Chest pain, unspecified; R06.00 Dyspnea, unspecified; K21.9 Gastro-esophageal reflux disease without esophagitis; I10 Essential (primary) hypertension; F41.9 Anxiety disorder, unspecified; K90.0 Celiac disease; Z79.899 Other long term (current) drug therapy
CPT/HCPCS: 71045; 80048; 83605; 84484; 85025; 93005; 99285; A4216

== ENCOUNTER 2020-08-26 05:14 | Day surgery (SDC) | payer OTHER, SELFPAY ==
[2020-07-19 14:43] VITALS: BMI 25.7
[2020-08-26] VITALS (9 sets, daily range): BP systolic 118–161; BP diastolic 66–108; PULSE 70–78; RESP 16–18; TEMP 36.7; O2SAT 94–100; BMI 27.4
--- NOTE | 2020-08-26 05:19 | HP.PCM_ITS ---
History and Physical Date of Admission: 08/26/20 Intake Visit Reasons: Hiatal Hernia Chief Complaint: hiatal hernia / GERD Stone Trimmer Required: No Is patient in pain?: No Allergies latex Allergy (Verified 07/19/20 14:42) blisters Medications escitalopram oxalate 10 mg PO DAILY 04/17/17 [History Confirmed 07/19/20] apple cider vinegar 300 mg PO DAILY 05/14/20 [History Confirmed 07/19/20] levomefolate calcium 15 mg tablet 15 mg PO DAILY 07/19/20 [History Confirmed 07/19/20] Is last menstrual period known: No Post menopausal: Yes Patient : No <Dr. Beau Randolph MD - Last Filed: 07/19/20 16:32> Vital Signs 07/19/20 14:41 07/19/20 14:43 Height 5 ft 4 in Weight: 163 lb 8 oz BMI 28.0 25.7 BP 144/90 H Blood Pressure Location Rt radial Position Sitting Respiration 18 Pulse 88 Pulse Source NIBP Temp 97.4 F L Temp Source Temporal Pulse Oximetry (%) 96 Oxygen Delivery Method room air PFSH <Vida Johnson - Last Filed: 07/19/20 14:43> Surgical History (Updated 07/19/20 @ 14:33 by Vida Johnson) History of colonoscopy History of femoral hernia repair History of left oophorectomy Family History (Updated 07/19/20 @ 14:41 by Vida Johnson) Mother Hypertension Thyroid disorder Social History Smoking Status: Never smoker HPI <Vida Johnson - Last Filed: 07/19/20 14:43> HPI HPI: HENRY VIDES, is a 65 F who presents to the office today for <Dr. Beau Randolph MD - Last Filed: 07/19/20 16:32> HPI HPI: 65-year-old female. She is referred by Celena Baca CNP and a written copy my surgical consult recommendations will be returned to her. The patient's been having trouble with reflux problems. She has some retrosternal pressure and discomfort. She has problems with reflux indigestion epigastric pain constant clearing of her throat. Previously she had been on constant acid reducing medications and now she uses Tums and acid on a as needed basis. She has known celiac disease. Her symptoms have been progressive over 4 years To help evaluate this at the [facility] on July 05, 2020 she had a esophagram. This demonstrates a large hiatal hernia with intrathoracic herniation of the fundus of the stomach. The patient surgical history includes a previous cholecystectomy and oophorectomy and she states I assisted her in 2007 with a left femoral hernia repair. She has additional concerns today and that she has been having trouble with right groin and anterior thigh sharp pain that is relieved by flexing her her thigh. She is not able to detect a bulge on the right. Her femoral hernia repair was on the left. HPI <Vida Johnson - Last Filed: 07/19/20 14:43> HPI HPI: HENRY VIDES, is a 65 F who presents to the office today for ROS <Vida Johnson - Last Filed: 07/19/20 14:43> General General: No weight change, appetite, fatigue, colon cancer, breast cancer or weakness HEENT HEENT: No difficulty swallowing, eye injury, eye surgery, swollen glands or hoarseness Endo Endocrine: No thyroid disease, diabetes mellitus, thyroid cancer, Hair loss, heat intolerance or cold intolerance Musc Musculoskeletal: Yes arthritis; No back problems, rheumatoid arthritis, gout or joint pain Cardio Cardiovascular: Yes high blood pressure; No murmur, pacemaker, heart disease, atrial fibrillation, heart attack, heart stent, palpitations, shortness of breat with exertion or chest pain Psych Psychiatric: Yes anxiety; No depression or hearing voices Resp Respiratory: Yes shortness of breath, No sleep apnea, No cough, No COPD, No ast hma, No emphysema and No wheezing Gastro Gastrointestinal: No abdominal pain, No nausea or vomiting, No diarrhea, No constipation, No blood in stool, Yes acid reflux, No hemorrhoids, No ulcers, No gallbladder problem and No black,tarry stools Nolan Hematologic: No blood thinners, No blood disorders, No bleeding, No anemia and No blood clots Neuro Neurologic: No weakness Exam <Vida Johnson - Last Filed: 07/19/20 14:43> Cardio Heart Sounds: no murmurs <Dr. Beau Randolph MD - Last Filed: 07/19/20 16:32> Const General: cooperative, healthy appearing and comfortable HENMT Head: normal to inspection Neck Neck: normal visual inspection Resp Effort & Inspection: normal respiratory effort Cardio Rate: regular rate Rhythm: regular rhythm GI Other: Soft, well-healed oblique right subcostal gallbladder incision, no hepatosplenomegaly, normal bowel sounds Other: Right groin examined with nursing present. No focal mass. Mild discomfort. Patient examined upright and supine. No gross inguinal defect. No palpable femoral defect. Not pulsatile Musc Cervical Spine: normal cervical lordosis Skin General: no rashes or lesions noted Neuro General: patient alert, patient awake and patient oriented x3 Extrem General: no calf tenderness bilaterally Assessment and Plan <Vida A Alex - Last Filed: 07/19/20 14:43> Assessment and Plan (1) HTN (hypertension): Status: Chronic (2) Osteoarthritis: Status: Acute (3) Celiac disease: Status: Acute (4) Hiatal hernia: Status: Acute (5) Ovarian cyst, left: Status: Acute (6) GERD (gastroesophageal reflux disease): Status: Acute (7) Anxiety: Status: Acute <Dr. Beau Randolph MD - Last Filed: 07/19/20 16:32> Assessment and Plan (1) Right groin pain: Plan: Regarding the patient's right groin pain I am not able to clinically detect a inguinal or femoral hernia. I do recommend a pelvic CT to image this area. I have personally reviewed the patient esophagram. She has a large component of intrathoracic stomach. I do propose for her a esophagogastroduodenoscopy with possible biopsy. Careful esophageal measurement will be performed. I additionally recommend to her esophageal manometry. I will then have the patient return to the office. At this point I have recommended to the patient that we consider a laparoscopic repair of her hiatal hernia utilizing suture pledgets. I anticipate likely utilizing a laparoscopic toupet procedure. She has had an opportunity to ask and have questions answered. I very much appreciate the kind opportunity of assisting with her surgical care. Subsequent to the testing we will have the patient return to the office for further surgical discussion. Copy: Celena Baca, DELANEY Randolph M.D., F.A.C.S. The patient did have a recent emergency room visit because of complaint of chest pain. She was evaluated through the emergency room and it was felt likely her chest discomfort was secondary to her large hiatal hernia. It was recommended t o her that she continue to pursue evaluation. The patient was concerned that she might have incarceration. There were no findings to suggest that at that time. We will proceed with the planned esophagogastroduodenoscopy. She has manometry scheduled on Saturday, August 29, 2020. Beau Randolph M.D., F.A.C.S.
[2020-08-26] MEDS: Lactated Ringers 1,000 ML 100 ML IV (05:50)
--- NOTE | 2020-08-26 06:30 | EGD_PTH ---
PATIENT: HENRY VIDES LOC: EN U#:[id number] AGE/SX: 65/F ROOM: RE08/26/[address]: Dr. Beau Randolph MD : 1955 BED: DIS: 08/26/2020 SPEC #: [id number] RECD: 08/26/20 11:01 STATUS: GERARDO QUIQUE #: [id number] DAVE: 08/26/20 06:[address]: Beau Randolph DEPT: SURGICAL PATHOLOGY RECD BY: Gisele Blake ENTERED: 08/26/20 12:02 SP TYPE: EGD BIOPSY OTHR DR: Celena Baca, PHYSICAL THERAPY AIDE-C Tissues: A - Duodenum, NOS B - Duodenum, NOS C - Gastric mucous membrane D - Gastric mucous membrane Procedures: Special Stain Group II Surgery Specimen Level IV Alcian Blue/PAS (control) HEADER OPERATION: EGD (MOD) PRE-OP DIAGNOSIS: GERD, right groin pain, hiatal hernia TISSUE SUBMITTED: A ? Duodenal polyp biopsy, B ? Duodenum biopsy, C ? GE junction biopsy, D ? Antrum for H. pylori and path MICROSCOPIC DIAGNOSIS A. 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 B. Duodenum, biopsy: Fragments of gastric and small intestinal mucosa with mild to moderate nonspecific chronic inflammation. See comment. C. GE junction, biopsy: Fragments of gastroesophageal mucosa with focal ulceration, acute and chronic inflammation and changes consistent with gastroesophageal reflux disease. Intestinal metaplasia (goblet cell metaplasia) is not identified. See comment. D. Gastric antrum, biopsy: Mild gastritis. See microscopic description and comment. SJ:rg 08/29/2020 COMMENT B. The specimen predominantly consists of gastric mucosa. C. Alcian blue/PAS stain with matched control is used in the evaluation of the specimen. D. The results of immunohistochemistry for Helicobacter pylori will be reported separately ([id number]). Case has been reviewed in consultation with Dr. Neal who concurs with the above diagnosis. IDC:AM MICROSCOPIC DESCRIPTION Slides are reviewed. D. The specimen shows fragments of gastric mucosa with chronic inflammatory cell infiltrates in the lamina propria consisting of lymphocytes and plasma cells, consistent with mild chronic gastritis. GROSS DESCRIPTION A - Received in fixative is one container labeled with the patient's name and designated duodenal polyp biopsy. The specimen consists of one irregular fragment of light de la cruz soft tissue that measures 0.3 x 0.2 x 0.1 cm. The specimen is totally submitted in one cassette. B - Received in fixative is one container labeled with the patient's name and designated duodenum biopsy. The specimen consists of two irregular fragments of light de la cruz soft tissue that in aggregate measure 0.3 x 0.2 x 0.1 cm. The specimen is totally submitted in one cassette. C - Received in fixative is one container labeled with the patient's name and designated GE junction. The specimen consists of multiple irregular fragments of light de la cruz soft tissue that in aggregate measure 0.7 x 0.5 x 0.1 cm. The specimen is totally submitted in one cassette. D - Received in fixative is one container labeled with the patient's name and designated gastric antrum. The specimen consists of one irregular fragment of light de la cruz soft tissue that measures 0.7 x 0.3 x 0.1 cm. The specimen is totally submitted in one cassette. / AM:caty 08/26/20 TC:3 [facility]: [id number] x4, [id number]
--- NOTE | 2020-08-26 06:30 | IMM_PTH ---
PATIENT: HENRY VIDES LOC: EN U#:[id number] AGE/SX: 65/F ROOM: RE08/26/[address]: Dr. Beau Randolph MD : 1955 BED: DIS: 08/26/2020 SPEC #: [id number] RECD: 08/26/20 13:12 STATUS: GERARDO REQ #: [id number] DAVE: 08/26/20 06:[address]: Beau Randolph DEPT: IMMUNOHISTOCHEMISTRY RECD BY: Tiera Quiroz ENTERED: 08/26/20 13:13 SP TYPE: IMMUNO OTHR DR: Celena Baca, COMPOSITE ENGINEER-C Tissues: D - Stomach, NOS Procedures: H Pylori (initial) PHYSICIAN & INSTITUTION [facility] [phone] SPECIMEN INFORMATION: Tissue Source: D ? Antrum biopsy Clinical Info: GERD; right groin pain; hiatal hernia Specimen Number: [id number] CPT code: 28295 METHODOLOGY: Deparaffinized sections of prefer/formalin-fixed tissue or PAP/DQ stained slides are incubated with monoclonal/polyclonal antibodies/oligonucleotide probes. Localization is made via biotin free immunoperoxidase method. Appropriate controls are performed and reacted as expected. Results on target cell population are indicated in the following table: RESULTS: ANTIBODY / CLONE RESULT Block D H Pylori (polyclonal) negative These tests were developed and their performance characteristics determined by [facility]. They may not have been cleared or approved by the U.S. Food and Drug Administration. The FDA has determined that such clearance or approval is not necessary. INTERPRETATION: D. Antrum biopsy: Negative for Helicobacter pylori organisms. SJ:caty 08/29/2020
--- NOTE | 2020-08-26 15:09 | OP.EGD_ITS ---
Patient Name: Krystal Carver Procedure Date: 08/26/2020 6:09 AM Date of : 1955 Age: 65 Procedure: Upper GI endoscopy Indications: Epigastric abdominal pain Providers: Beau Randolph MD Medicines: Midazolam 3 mg IV, Meperidine 75 mg IV Complications: No immediate complications. Procedure: Pre-Anesthesia Assessment: - Prior to the procedure, a History and Physical was performed, and patient medications and allergies were reviewed. The patient's tolerance of previous anesthesia was also reviewed. The risks and benefits of the procedure and the sedation options and risks were discussed with the patient. All questions were answered, and informed consent was obtained. Prior Anticoagulants: The patient has taken no previous anticoagulant or antiplatelet agents. ASA Grade Assessment: II - A patient with mild systemic disease. After reviewing the risks and benefits, the patient was deemed in satisfactory condition to undergo the procedure. After obtaining informed consent, the endoscope was passed under direct vision. Throughout the procedure, the patient's blood pressure, pulse, and oxygen saturations were monitored continuously. The gastroscope was introduced through the mouth, and advanced to the second part of duodenum. The upper GI endoscopy was accomplished without difficulty. The patient tolerated the procedure well. Moderate Sedation: Moderate (conscious) sedation was personally administered by the endoscopist. The following parameters were monitored: oxygen saturation, heart rate, blood pressure, and response to care. Total physician intraservice time was 15 minutes. Scope In: 6:31:59 AM Scope Out: 6:40:39 AM Total Procedure Duration Time 0 hours 8 minutes 40 seconds Findings: LA Grade A (one or more mucosal breaks less than 5 mm, not extending between tops of 2 mucosal folds) esophagitis with no bleeding was found 33 cm from the incisors. Biopsies were taken with a cold forceps for histology. A large hiatal hernia was present. Diffuse mildly erythematous mucosa without bleeding was found in the gastric antrum. Biopsies were taken with a cold forceps for histology. A single 5 mm sessile polyp was found in the duodenal bulb. The polyp was removed with a cold biopsy forceps. Polyp resection was incomplete, and the resected tissue was partially retrieved. Localized nodular mucosa was found in the duodenal bulb. Biopsies were taken with a cold forceps for histology. Impression: - LA Grade A reflux esophagitis. Biopsied. - Large hiatal hernia. - Erythematous mucosa in the antrum. Biopsied. - A single duodenal polyp. Polyp resection was incomplete, and the resected tissue was partially retrieved. - Nodular mucosa in the duodenal bulb. Biopsied. Recommendation: - Discharge patient to home. - Resume previous diet. - Continue present medications. - Return to my office in 1 week. Procedure Code(s): --- Professional --- 37605, Esophagogastroduodenoscopy, flexible, transoral; with biopsy, single or multiple 96246, 59, Moderate sedation services provided by the same physician or other qualified health manager managed care performing the diagnostic or therapeutic service that the sedation supports, requiring the presence of an independent trained observer to assist in the monitoring of the patient's level of consciousness and physiological status; initial 15 minutes of intraservice time, patient age 5 years or older Diagnosis Code(s): --- Professional --- K21.0, Gastro-esophageal reflux disease with esophagitis K44.9, Diaphragmatic hernia without obstruction or gangrene K31.89, Other diseases of stomach and duodenum K31.7, Polyp of stomach and duodenum R10.13, Epigastric pain CPT copyright 2017 [employer]. All rights reserved. The codes documented in this report are preliminary and upon cst review may be revised to meet current compliance requirements. Beau Randolph MD 08/26/2020 6:47:28 AM This report has been signed electronically. Number of Addenda: 0 Note Initiated On: 08/26/2020 6:09 AM
--- NOTE | 2020-08-26 15:09 | OP.CCLET_ITS ---
08/26/2020 Celena Baca, SANDY [address] [place] [address] Re : Upper GI endoscopy procedure for Krystal Carver Dear Ms. Baca This procedure was performed on Wednesday, August 26, 2020. My impressions and recommendations are as follows: Impressions : - LA Grade A reflux esophagitis. Biopsied. - Large hiatal hernia. - Erythematous mucosa in the antrum. Biopsied. - A single duodenal polyp. Polyp resection was incomplete, and the resected tissue was partially retrieved. - Nodular mucosa in the duodenal bulb. Biopsied. Recommendations : - Discharge patient to home. - Resume previous diet. - Continue present medications. - Return to my office in 1 week. My findings are described in the full procedure note, which is enclosed. If I can be of further assistance, please feel free to contact me at Doctor phone number(s): Work: . Sincerely, Beau Randolph MD 08/26/2020 6:47:28 AM This report has been signed electronically.
== END 2020-08-26 07:22 ==
LOC: EN 05:17 → AC 05:17
PROVIDERS: PCP Nurse Practitioner; Referring Provider Nurse Practitioner; Visit Provider Surgery
PROC: (CPT 43239; principal; 2020-08-26 06:25)
DX: K29.70 Gastritis, unspecified, without bleeding (principal); K21.00 Gastro-esophageal reflux disease with esophagitis, without bleeding; K44.9 Diaphragmatic hernia without obstruction or gangrene; K31.7 Polyp of stomach and duodenum; I10 Essential (primary) hypertension; F41.9 Anxiety disorder, unspecified; K90.0 Celiac disease; M19.90 Unspecified osteoarthritis, unspecified site; Z79.899 Other long term (current) drug therapy
CPT/HCPCS: 43239; 88305; 88313; 88342; 99152; 99153; J7120

== ENCOUNTER 2020-08-29 07:51 | Day surgery (SDC) | payer OTHER, SELFPAY ==
[2020-07-19 14:43] VITALS: BMI 25.7
[2020-08-26 05:50] VITALS: BMI 27.4
[2020-08-29 08:04] VITALS: BP 149/89; PULSE 83; RESP 16; TEMP 36.3; O2SAT 95
[2020-08-29] MEDS: Lidocaine Jelly 2% 20 ML Syringe (URO-JET) 20 APPLIC (08:04)
== END 2020-08-29 08:38 ==
LOC: EN 07:52
PROVIDERS: PCP Nurse Practitioner; Referring Provider Nurse Practitioner; Visit Provider Surgery
PROC: F00ZJWZ Instrumental Swallowing and Oral Function Assessment using Swallowing Equipment (ICD-10-PCS; CPT 43235; principal; 2020-08-29 07:55)
DX: K44.9 Diaphragmatic hernia without obstruction or gangrene (principal)
CPT/HCPCS: 91010; 91013

== ENCOUNTER 2020-09-07 10:43 | Observation (INO) | payer OTHER, MEDICARE, SELFPAY ==
[2020-09-01 10:03] VITALS: BMI 27.4
--- NOTE | 2020-09-05 15:57 | EKG12_ITS ---
Test Reason : PRE SURGERY Blood Pressure : / mmHG Vent. Rate : 072 BPM Atrial Rate : 072 BPM P-R Int : 154 ms QRS Dur : 080 ms QT Int : 398 ms P-R-T Axes : 068 064 061 degrees QTc Int : 435 ms Normal sinus rhythm Normal ECG Confirmed by DEBBIE PAIGE, RACHEL ([id number]), editor city [place] GRIDER ([id number]) on 09/06/2020 9:00:54 AM Referred By: Beau Randolph Confirmed By:RACHEL LEWIS MD
[2020-09-05 17:23] LABS: Hematocrit 37.7 % (37-47); Hemoglobin 12.6 g/dL (12.0-15.0); Mean Corp Hgb Conc 33.4 g/dL (32-36); Mean Corpuscular Hgb 33.1 pg (27.0-32.0); Mean Platelet Vol. 10.7 fl (6.2-12.0); Platelet Count 209 K/mm3 (150-450); RBC Distribution Width CV 13.1 % (11.6-14.6); RBC Distribution Width SD 47.7 fl (35.1-43.9); Red Blood Count 3.81 M/mm3 (4.2-5.4); White Blood Count 4.3 K/mm3 (4.4-11.0)
[2020-09-05 17:37] LABS: Anion Gap 9 (5-15); BUN 17 mg/dL (7-18); BUN/Creat Ratio 25.4 RATIO (10-20); Calcium,Total 8.8 mg/dL (8.5-10.1); Chloride 109 mmol/L (98-107); Creatinine, Serum 0.67 mg/dL (0.55-1.02); EST Glomerular Filtration Rate 94 mL/min (>60); Est Glom Filt Rate - Afr Amer 113 mL/min (>60); Glucose 87 mg/dL (74-106); Potassium 3.5 mmol/L (3.5-5.1); Sodium Level 141 mmol/L (136-145)
[2020-09-07] VITALS (14 sets, daily range): BP systolic 121–152; BP diastolic 71–98; PULSE 64–97; RESP 16–18; TEMP 35.9–37.3; O2SAT 94–97; BMI 28.7
--- NOTE | 2020-09-07 05:29 | PCM.HP.BLA ---
History and Physical Date of Admission: 09/07/20 Intake Visit Reasons: Discuss testing and HH repair Chief Complaint: Discuss Hiatal hernia repair Stage Director Required: No Is patient in pain?: No (not at this time- pt stated she hasn't ate) Allergies latex Allergy (Verified 09/01/20 10:05) blisters Medications escitalopram oxalate 10 mg PO DAILY 04/17/17 [History Confirmed 09/01/20] levomefolate calcium 15 mg tablet 15 mg PO DAILY 07/19/20 [History Confirmed 09/01/20] valsartan 40 mg PO DAILY 08/08/20 [History Confirmed 09/01/20] omeprazole 20 mg PO DAILY 08/26/20 [History Confirmed 09/01/20] [facility] Medical History (Updated 09/01/20 @ 10:[address] Beau Randolph MD) Anxiety Celiac disease GERD (gastroesophageal reflux disease) Hiatal hernia HTN (hypertension) Surgical History History of colonoscopy History of femoral hernia repair History of left oophorectomy Family History Mother Hypertension Thyroid disorder Social History Smoking Status: Never smoker substance use type: does not use HPI HPI HPI: KRYSTAL CARVER, is a 65 F who presents to the office today for ongoing surgical consultation regarding retrosternal discomfort esophageal dysphagia and reflux disease At the patient's initial office visit she also also complained of right groin pain. A CT scan was obtained. This suggested possible vaginal wall thickening and a coccygeal lesion. She was contacted and advised to seek follow-up with [facility] and orthopedics. At the time of her upper endoscopy she was rereminded and she had already seen [facility] and we again encouraged an orthopedic visit and she states that she would follow through with scheduling her own appointment. [facility] [id number] [place] [address] Pelvis WITH IV Contrast MR#: [id number]:[id number]: KRYSTAL CARVER LRep #:[id number]: [id number] From: Tyler Cruz MDPCP:Celena Baca, M[employer] SALES REPRESENTATIVE-C Status:REG CLIStudy:Pelvis WITH IV Contrast Date of Exam:07/25/20Exam#[id number] Ordering Dr: Beau Randolph MD INDICATION: right groin pain EXAMINATION: CT Pelvis W/ Contrast Injection TECHNIQUE: Helically acquired images were obtained of the pelvis after IV contrast. A radiation dose optimization technique was used for this scan. IV Contrast dosage and agent: 100 cc [id number] Oral contrast: None. COMPARISON: None. FINDINGS: Vasculature: Unremarkable GI Tract: Unremarkable Lymphadenopathy: None Peritoneum: No ascites. Bladder: Unremarkable Reproductive organs: Multiple calcified fibroids. The vaginal wall is hyperenhancing. Bones/Soft tissues: Mild scattered degenerative changes of the visualized spine. 2.6 cm expansile lesion of the coccyx. CT/Pelvis WITH IV Contrast IMPRESSION: Multifibroid uterus. Hyperenhancing vaginal wall is of uncertain significance. A pelvic MRI may be beneficial if clinically warranted. 2.6 cm expansile lesion of the coccyx is indeterminate. Two possible etiologies include enchondroma or exostosis. Electronically Signed: Tyler Cruz MD at 23:30 EDT Tel , Service support , Regards her retrosternal discomfort and reflux disease she had the esophagram as noted and then she ended up having an upper endoscopy as noted below. She is also had manometrics To help evaluate this at the [facility] on July 05, 2020 she had a esophagram. This demonstrates a large hiatal hernia with intrathoracic herniation of the fundus of the stomach. The patient had manometry with test results pending. Apparently this was a very difficult and felt to be an adequate exam due to the size of her hiatal hernia and bladder finding of the device. The patient claims that she now is so severe that she cannot return to work. She has severe retrosternal discomfort and a squishy bubble like feeling. If she does any lifting the symptoms are immediately aggravated. She has just recently as of yesterday been increased to omeprazole 40 mg twice daily. The patient surgical history includes a previous cholecystectomy and oophorectomy and she states I assisted her in 2007 with a left femoral hernia repair. August 26, 2020 MICROSCOPIC DIAGNOSIS A. 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 B. Duodenum, biopsy:Fragments of gastric and small intestinal mucosa with mild to moderate nonspecific chronic inflammation. See comment. C. GE junction, biopsy:Fragments of gastroesophageal mucosa with focal ulceration, acute and chronic inflammation and changes consistent with gastroesophageal reflux disease.Intestinal metaplasia (goblet cell metaplasia) is not identified.See comment. D. Gastric antrum, biopsy:Mild gastritis.See microscopic description and comment H. pylori negative August 26, 2020 Patient Name: Krystal Carver Procedure Date: 08/26/2020 6:09 AM Date of : 1955 Age: 65 Procedure: Upper GI endoscopy Indications: Epigastric abdominal pain Providers: Beau Randolph MD Medicines: Midazolam 3 mg IV, Meperidine 75 mg IV Complications: No immediate complications. Procedure: Pre-Anesthesia Assessment: - Prior to the procedure, a History and Physical was performed, and patient medications and allergies were reviewed. The patient's tolerance of previous anesthesia was also reviewed. The risks and benefits of the procedure and the sedation options and risks were discussed with the patient. All questions were answered, and informed consent was obtained. Prior Anticoagulants: The patient has taken no previous anticoagulant or antiplatelet agents. ASA Grade Assessment: II - A patient with mild systemic disease. After reviewing the risks and benefits, the patient was deemed in satisfactory condition to undergo the procedure. After obtaining informed consent, the endoscope was passed under direct vision. Throughout the procedure, the patient's blood pressure, pulse, and oxygen saturations were monitored continuously. The gastroscope was introduced through the mouth, and advanced to the second part of duodenum. The upper GI endoscopy was accomplished without difficulty. The patient tolerated the procedure well. Moderate Sedation: Moderate (conscious) sedation was personally administered by the endoscopist. The following parameters were monitored: oxygen saturation, heart rate, blood pressure, and response to care. Total physician intraservice time was 15 minutes. Scope In: 6:31:59 AM Scope Out: 6:40:39 AM Total Procedure Duration Time 0 hours 8 minutes 40 seconds Findings: LA Grade A (one or more mucosal breaks less than 5 mm, not extending between tops of 2 mucosal folds) esophagitis with no bleeding was found 33 cm from the incisors. Biopsies were taken with a cold forceps for histology. A large hiatal hernia was present. Diffuse mildly erythematous mucosa without bleeding was found in the gastric antrum. Biopsies were taken with a cold forceps for histology. A single 5 mm sessile polyp was found in the duodenal bulb. The polyp was removed with a cold biopsy forceps. Polyp resection was incomplete, and the resected tissue was partially retrieved. Localized nodular mucosa was found in the duodenal bulb. Biopsies were taken with a cold forceps for histology. Impression: - LA Grade A reflux esophagitis. Biopsied. - Large hiatal hernia. - Erythematous mucosa in the antrum. Biopsied. - A single duodenal polyp. Polyp resection was incomplete, and the resected tissue was partially retrieved. - Nodular mucosa in the duodenal bulb. Biopsied. Recommendation: - Discharge patient to home. - Resume previous diet. - Continue present medications. - Return to my office in 1 week. Procedure Code(s): --- Professional --- 18512, Esophagogastroduodenoscopy, flexible, transoral; with biopsy, single or multiple 19968, 59, Moderate sedation services provided by the same physician or other qualified health personal care worker performing the diagnostic or therapeutic service that the sedation supports, requiring the presence of an independent trained observer to assist in the monitoring of the patient's level of consciousness and physiological status; initial 15 minutes of intraservice time, patient age 5 years or older Diagnosis Code(s): --- Professional --- K21.0, Gastro-esophageal reflux disease with esophagitis K44.9, Diaphragmatic hernia without obstruction or gangrene K31.89, Other diseases of stomach and duodenum K31.7, Polyp of stomach and duodenum R10.13, Epigastric pain CPT copyright 2017 [employer]. All rights reserved. The codes documented in this report are preliminary and upon squeezer operator review may be revised to meet current compliance requirements. Beau Randolph MD 08/26/2020 6:47:28 AM This report has been signed electronically. Number of Addenda: 0 Note Initiated On: 08/26/2020 6:09 AM My previous notes reflect the following Surgical History (Updated 07/19/20 @ 14:33 by Vida Johnson) History of colonoscopy History of femoral hernia repair History of left oophorectomy Family History (Updated 07/19/20 @ 14:41 by Vida Johnson) Mother Hypertension Thyroid disorder Social History Smoking Status: Never smoker HPI <Vida Johnson - Last Filed: 07/19/20 14:43> HPI HPI: KRYSTAL CARVER, is a 65 F who presents to the office today for <Dr. Beau Randolph MD - Last Filed: 07/19/20 16:32> HPI HPI: 65-year-old female. She is referred by Celena Baca CNP and a written copy my surgical consult recommendations will be returned to her. The patient's been having trouble with reflux problems. She has some retrosternal pressure and discomfort. She has problems with reflux indigestion epigastric pain constant clearing of her throat. Previously she had been on constant acid reducing medications and now she uses Tums and acid on a as needed basis. She has known celiac disease. Her symptoms have been progressive over 4 years To help evaluate this at the [facility] on July 05, 2020 she had a esophagram. This demonstrates a large hiatal hernia with intrathoracic herniation of the fundus of the stomach. The patient surgical history includes a previous cholecystectomy and oophorectomy and she states I assisted her in 2007 with a left femoral hernia repair. She has additional concerns today and that she has been having trouble with right groin and anterior thigh sharp pain that is relieved by flexing her her thigh. She is not able to detect a bulge on the right. Her femoral hernia repair was on the left. HPI <Vida Johnson - Last Filed: 07/19/20 14:43> HPI HPI: KRYSTAL CARVER, is a 65 F who presents to the office today for ROS <Vida Johnson - Last Filed: 07/19/20 14:43> General General: No weight change, appetite, fatigue, colon cancer, breast cancer or weakness HEENT HEENT: No difficulty swallowing, eye injury, eye surgery, swollen glands or hoarseness Endo Endocrine: No thyroid disease, diabetes mellitus, thyroid cancer, Hair loss, heat intolerance or cold intolerance Musc Musculoskeletal: Yes arthritis; No back problems, rheumatoid arthritis, gout or joint pain Cardio Cardiovascular: Yes high blood pressure; No murmur, pacemaker, heart disease, atrial fibrillation, heart attack, heart stent, palpitations, shortness of breat with exertion or chest pain Psych Psychiatric: Yes anxiety; No depression or hearing voices Resp Respiratory: Yes shortness of breath, No sleep apnea, No cough, No COPD, No asthma, No emphysema and No wheezing Gastro Gastrointestinal: No abdominal pain, No nausea or vomiting, No diarrhea, No constipation, No blood in stool, Yes acid reflux, No hemorrhoids, No ulcers, No gallbladder problem and No black,tarry stools Nolan Hematologic: No blood thinners, No blood disorders, No bleeding, No anemia and No blood clots Neuro Neurologic: No weakness Exam <Vida Johnson - Last Filed: 07/19/20 14:43> Cardio Heart Sounds: no murmurs <Dr. Beau Randolph MD - Last Filed: 07/19/20 16:32> Const General: cooperative, healthy appearing and comfortable HENMT Head: normal to inspection Neck Neck: normal visual inspection Resp Effort & Inspection: normal respiratory effort Cardio Rate: regular rate Rhythm: regular rhythm GI Other: Soft, well-healed oblique right subcostal gallbladder incision, no hepatosplenomegaly, normal bowel sounds Other: Right groin examined with nursing present. No focal mass. Mild discomfort. Patient examined upright and supine. No gross inguinal defect. No palpable femoral defect. Not pulsatile Musc Cervical Spine: normal cervical lordosis Skin General: no rashes or lesions noted Neuro General: patient alert, patient awake and patient oriented x3 Extrem General: no calf tenderness bilaterally Assessment and Plan <Vida Johnson - Last Filed: 07/19/20 14:43> Assessment and Plan (1) HTN (hypertension): Status: Chronic (2) Osteoarthritis: Status: Acute (3) Celiac disease: Status: Acute (4) Hiatal hernia: Status: Acute (5) Ovarian cyst, left: Status: Acute (6) GERD (gastroesophageal reflux disease): Status: Acute (7) Anxiety: Status: Acute <Dr. Beau Randolph MD - Last Filed: 07/19/20 16:32> Assessment and Plan (1) Right groin pain: Plan: Regarding the patient's right groin pain I am not able to clinically detect a inguinal or femoral hernia. I do recommend a pelvic CT to image this area. I have personally reviewed the patient esophagram. She has a large component of intrathoracic stomach. I do propose for her a esophagogastroduodenoscopy with possible biopsy. Careful esophageal measurement will be performed. I additionally recommend to her esophageal manometry. I will then have the patient return to the office. At this point I have recommended to the patient that we consider a laparoscopic repair of her hiatal hernia utilizing suture pledgets. I anticipate likely utilizing a laparoscopic toupet procedure. She has had an opportunity to ask and have questions answered. I very much appreciate the kind opportunity of assisting with her surgical care. Subsequent to the testing we will have the patient return to the office for further surgical discussion. Copy: Celena Baca, CANDY POLISHER Beau Randolph M.D., F.A.C.S. The patient did have a recent emergency room visit because of complaint of chest pain. She was evaluated through the emergency room and it was felt likely her chest discomfort was secondary to her large hiatal hernia. It was recommended to her that she continue to pursue evaluation. The patient was concerned that she might have incarceration. There were no findings to suggest that at that time. We will proceed with the planned esophagogastroduodenoscopy. She has manometry scheduled on Saturday, August 29, 2020. Beau Randolph M.D., F.A.C.S. ROS General General: No weight change, appetite, fatigue, colon cancer, breast cancer or weakness HEENT HEENT: No difficulty swallowing, eye injury, eye surgery, swollen glands or hoarseness Endo Endocrine: No thyroid disease, diabetes mellitus, thyroid cancer, Hair loss, heat intolerance or cold intolerance Musc Musculoskeletal: Yes arthritis; No back problems, rheumatoid arthritis, gout or joint pain Psych Psychiatric: Yes anxiety; No depression or hearing voices Resp Respiratory: Yes shortness of breath, No sleep apnea, No cough, No COPD, No asthma, No emphysema and No wheezing Gastro Gastrointestinal: No abdominal pain, No nausea or vomiting, No diarrhea, No constipation, No blood in stool, Yes acid reflux, No hemorrhoids, No ulcers, No gallbladder problem and No black,tarry stools Nolan Hematologic: No blood thinners, No blood disorders, No bleeding, No anemia and No blood clots Neuro Neurologic: No weakness Exam Const General: cooperative Nutritional Appearance: average body habitus HENMT Head: normal to inspection Resp Effort & Inspection: normal respiratory effort Auscultation: clear to auscultation bilaterally Cardio Rate: regular rate Rhythm: regular rhythm GI Palpation: soft and no hepatosplenomegaly Auscultation: normal bowel sounds Neuro General: patient alert and patient awake Extrem General: no calf tenderness bilaterally Psych Appearance: grossly normal COVID (Procedure Consent) Procedure Criteria Procedure Criteria: Yes Elective The surgeon/proceduralist and patient have discussed in detail the risk of exposure to and/or potential harm posed by the COVID-19 virus with having a surgery/procedure at this time versus the risk of delaying the surgery/procedure. It is not possible to know either the risk of delaying the surgery or procedure or chance of getting an infection with perfect accuracy, but a joint decision was made between the patient and the surgeon/proceduralist to proceed at this time with the scheduled surgery/procedure as indicated on the consent form. Assessment and Plan Assessment and Plan (1) Chest pain: Status: Acute (2) Hernia, hiatal: Status: Acute Plan Details Additional Comments: Patient appears to have a significantly symptomatic retrosternal hiatal hernia with ulcerative reflux esophagitis. Her symptoms seem to correlate with mechanical discomfort related to the size of her hiatal hernia. She describes immediate discomfort with lifting and is feeling of a squishy ball in the retrosternal. She is much more comfortable if she does not eat at all however eating or even drinking causes her discomfort sooner after. In great detail I have discussed with her laparoscopic repair of hiatal hernia with a reflux procedure. With the manometry is being challenged I recommend a partial wrap i.e. a laparoscopic toupet procedure. I have discussed technique benefit risk complications alternatives. I discussed the need to perform dissection in the retrosternal mediastinum mobilizing the esophagus gaining access the stomach back into the abdomen. She is aware that potential risk of injury to the esophagus and the stomach. Potential neurovascular risks. She is aware that short gastrics will need to be secured. She is aware that the diaphragmatic opening will be larger and require more extensive suturing anticipate using pledgets. No guarantees of success have been offered. She has had an opportunity to ask and have questions answered. In addition I have discussed with her the fact that I will be out of town the day following surgery and Dr. Kurtis Patel will be assisting me with her postoperative management if needed. She feels that she is so miserable that she is in agreement to this rather than scheduling into the future. We will keep her on omeprazole therapy 40 mg twice daily. We will schedule and proceed at her discretion. I do anticipate intraoperative esophagogastroduodenoscopy to confirm the wrap and assess for any complication. Copy: DELANEY Dave M.D., F.A.C.S. Esophageal manometry performed on August 29, 2020 demonstrates 10 swallows with normal motility. I have re-examined the patient. There are no clinical changes since date of exam.
[2020-09-07] MEDS: Lactated Ringers 1,000 ML 100 ML IV ×2 (05:35→09:15)
--- NOTE | 2020-09-07 07:09 | PCM.DC ---
Discharge Instructions Diet Discharge Diet: - Activity Discharge Activity: May Not Drive (for 3-5 days or while taking narcotic pain medicine.) May shower in (days): 1 Lifting Restrictions: 10 pounds Additional Activity Instructions:: Dietary and activity instructions per the preprinted Kirby surgical associate laparoscopic Juventino fundoplication instructions Dressing / Incision Call your doctor if your incision/area has: Continuous Slow Oozing, Sudden Increased Bleeding, Increased Pain/ Swelling, Increased Redness and Foul Smelling Discharge Call your doctor if you observe: Fever of 101 or Higher Suture Line Care: Avoid Pulling/Pushing and Avoid Pinching/Bending Additional Dressing/Incision Instructions:: Change or remove dressing in 4 days. Leave steri-strips in place for 1 week. Follow Up Care Please Follow Up With: Beau Randolph MD When: Call [phone] to make an appointment to be seen in about 10 days. Test Results: Test results from this visit will be discussed in further detail at your follow-up appointment, if applicable. Discharge Plan Admission Attending Provider: Beau Randolph Primary Care Provider: Celena Baca NP Discharge Orders/Prescriptions Prescriptions: No Action escitalopram oxalate 20 MG tablet 10 mg PO DAILY RF: 0 omeprazole 20 mg Tablet,Delayed Release (Dr/Ec) 40 mg PO BID RF: 0 valsartan 40 mg Tablet 40 mg PO DAILY RF: 0 VIACTIV Multi-Vitamin 200-0.4 mg Tablet,Chewable 1 tab PO DAILY RF: 0 cholecalciferol (vitamin D3) [Vitamin D3] 25 mcg (1,000 unit) Tablet 25 mcg PO DAILY RF: 0 levomefolate calcium [Deplin] 15 mg Tablet 15 mg PO DAILY RF: 0
[2020-09-07] MEDS: Cefazolin 2 GM in 0.9% Normal Saline 100 ML IV (07:17)
--- NOTE | 2020-09-07 07:30 | HERN_PTH ---
PATIENT: HENRY VIDES LOC: MS3 U#:[id number] AGE/SX: 65/F ROOM: MS318 RE09/07/[address]: Dr. Beau Randolph MD : 1955 BED: 1 DIS: 09/08/2020 SPEC #: [id number] RECD: 09/07/20 11:12 STATUS: GERARDO QUIQUE #: [id number] DAVE: 09/07/20 07:[address]: Beau Randolph DEPT: SURGICAL PATHOLOGY RECD BY: Litzy Montejo ENTERED: 09/07/20 12:15 SP TYPE: Hernia OTHR DR: Celena Baca FREELANCE WEB DESIGNER-Danii Tissues: HERNIA Procedures: Surgery Specimen Level II HEADER OPERATION: Laparoscopic hiatal hernia repair with laparoscopic Toupet PRE-OP DIAGNOSIS: Chest pain, hiatal hernia TISSUE SUBMITTED: Hernia sac MICROSCOPIC DIAGNOSIS Hernia sac: Mature adipose tissue, clinically hiatal hernia. Benign lymph node tissue with reactive changes. THIERRY:caty 09/08/2020 MICROSCOPIC DESCRIPTION Slides are reviewed. GROSS DESCRIPTION Received in fixative is one container labeled with the patient's name and designated hernia sac. The specimen consists of a piece of de la cruz soft tissue measuring 2 x 1.6 x 1 cm. Sections do not reveal any mass lesion. The entire specimen is submitted in one cassette. / THIERRY:caty 09/07/20 TC:5 CPT: 01265
[2020-09-07] MEDS: Bupivacaine Mpf 0.5% 30 ML VIAL (10:21)
--- NOTE | 2020-09-07 10:27 | PCM.OPRPT ---
Problems Associated Problem List Diagnoses (1) Hernia, hiatal: (2) GERD (gastroesophageal reflux disease): Report of Operation Date of Procedure: 09/07/20 Pre-Operative Diagnosis: Intractable gastroesophageal reflux disease with symptomatic hiatal hernia Post-Operative Diagnosis: Same Surgery/Procedure Performed:: Laparoscopic repair of hiatal hernia laparoscopic toupet procedure. Esophagogastroduodenoscopy Description of Surgical Findings:: Timeout and informed consent was obtained. 65-year-old female was taken to the operating placed in a be PEG supine on the table. She underwent general endotracheal inpatient esthesia. Ancef 2 g were given initially. She was then placed in a low lithotomy position. Careful buttock padding was performed with rolled blankets. The abdomen sterilely prepped and draped. Ioban drape was used helpful dressings in place. 0.5% Marcaine was used as a local anesthetic. In the right upper periumbilical area using a 5 mm Visiport technology clean access of the abdomen was achieved. The abdomen was insufflated with CO2 to 10 mmHg pressure. Under visualization a 10 mm port was placed in the left superior periumbilical area. 2 more ports were placed in the left subcostal area. Then a 5 mm port was placed in the epigastric area. A Toro retractor was secured to the right rail of the bed and the Toro tractor was used to elevate the left lobe of the liver. Using noncrushing graspers a significant amount of stomach was evacuated from the hernia sac and mediastinum. I then identified the epi gastric ligament area and the sac area used harmonic scalpel to incise this. This allowed them the pneumoperitoneum to assist with the dissection. I was able to identify the right caren in keeping the peritoneum attached to the right caren I dissected the hernia sac free with harmonic scalpel. Then cydney attention into the short gastrics as I could tell that there was very intimate adherence of the proximal greater curve of the stomach to the spleen via short gastrics. These were mostly secured with a harmonic scalpel however there was a very large dominant short gastric located superiorly and I secured that by placing 2 hemolock clips proximally and distally prior to using the arm on a scalpel to transect it. I was able then to dissect free the left caren of the diaphragm and so doing I was able to better mobilize the stomach still within the mediastinum. Was able to carefully dissect 360 degrees around the esophagus once I got posterior access I then placed 1/2 inch Neto drain and use that to assist with visualization. I could now for approximately 8 and in some areas 10 cm into the mediastinum dissected free carefully with blunt dissection and harmonic scalpel dissection. Great care was taken to identify the posterior vagus nerve particularly and preserve it. I now has the entire stomach reduced back into the abdomen. I had achieved very nice recurrent length of the esophagus. There was few adhesions and attachments of the posterior aspect of the hernia sac which I dissected free as well. The Teaberry drain was repositioned so as to keep the posterior vagus nerve adjacent to the esophagus. I approximated the crura using pledgeted sutures of 0 Ethibond. Did that with simple sutures and extracorporeal tying and then I did intracorporeal knot tying to further secure the slip knot. 3 separate sutures were placed within good repair of the diaphragm and seemingly excellent approximation. I did ask anesthesia Dr. Pate to assist with placement of a 45 Liberian bougie but he was not able to pass the esophageal inlet. I asked him to cease that procedure. I then took the fundus of the stomach wrapped it posteriorly. That seemed to proceed well. I used a pledgeted 0 Ethibond suture and secured the posterior aspect of that wrap to the diaphragmatic repair. I then converted to 2-0 Ethibond and placed in apical suture into the esophagus then into the epiphrenic ligament until the wrap portion of the stomach secured that with intracorporeal knot tying and then did a running suture line for approximately 2 to 2-1/2 cm of the wrap portion of the stomach. I then brought the fundus of the stomach been performed the same thing on the left side of the diaphragm. I tried to make the wrap incorporated approximately 270 degrees of the esophagus posteriorly. At the completion of the Toupet I felt that I had excellent mobilization good position of the esophagus within the abdomen the wrap appeared to be intact. Hemostasis was nicely intact. Blood loss throughout the procedure than minimal. I then performed a esophagogastroduodenoscopy. This will be described in probation system. It demonstrated an intact wrap and there was no air leak. OG tube was replaced. All fluid from the abdomen was aspirated free. I then performed a left unilateral tap block using the 0.5% Marcaine. This was done under laparoscopic visualization. Finally I remove the 10 mm port and used a GraNee needle and a simple suture of 0 Vicryl to close that port site. The abdomen was allowed to deflate of CO2 through an antiviral valve. Trochars were removed. Skin edges were approximated interrupted 4-0 Monocryl subdermal stitches. Steri-Strips Telfa OpSite dressings applied. It is of note that once I had the stomach all the way reduced there was a hernia sac which in part I resected using a harmonic scalpel. A portion of the specimen represents this hernia sac. Specimen hernia sac. Drains none. Blood loss minimal. She was taken to the recovery area in satisfactory condition without apparent complication Beau Randolph M.D., F.A.C.S. Surgeon: Beau Randolph Anesthesiologist: Lemuel Ahmadi
--- NOTE | 2020-09-07 12:18 | SUR.PHASEII ---
Starting Phase 2 in PACU Stevens 2 d/t no room availability. Patient is stable and will be monitored in phase 2.
[2020-09-07] MEDS: Lactated Ringers 1,000 ML 50 ML IV (13:55)
[2020-09-07] MEDS: Morphine 4 MG/ML Syringe IV (13:55)
--- NOTE | 2020-09-07 14:26 | EKG12_ITS ---
Test Reason : CHEST PRESSURE Blood Pressure : / mmHG Vent. Rate : 064 BPM Atrial Rate : 064 BPM P-R Int : 170 ms QRS Dur : 084 ms QT Int : 446 ms P-R-T Axes : 072 059 066 degrees QTc Int : 460 ms Normal sinus rhythm Low voltage QRS Nonspecific T wave abnormality Abnormal ECG When compared with ECG of 05-SEP-2020 16:11, Nonspecific T wave abnormality now evident in Anterolateral leads Confirmed by CARLOS PAIGE, NORBERTO ([id number]), splicer machine operator SAMMY GRIDER ([id number]) on 09/12/2020 11:18:41 A M Referred By: Beau Randolph Confirmed By:CHELSY GONZALEZ MD
--- NOTE | 2020-09-07 16:24 | PCM.PN.SRG ---
Subjective Subjective Patient is doing well. She has required a moderate amount of morphine so far.She has been out of bed to go to the bathroom. She has been able to void. No nausea. She is tolerating sips and chips Objective Data Objective Data Vital Signs: Vital Signs Temp Pulse Resp BP Pulse Ox 98.7 F 86 18 146/76 H 94 09/07/20 14:44 09/07/20 14:44 09/07/20 15:00 09/07/20 14:44 09/07/20 14:44 Oxygen Delivery Method Room Air Weight: 167 lb 5.294 oz Body Mass Index (BMI) 28.7 Intake & Output: Intake and Output for Last 24 Hours 09/05/20 09/06/20 09/07/20 23:59 23:59 23:59 Intake Total 2109 Balance 2109 Lab / Micro Data Result Diagrams: 09/05/20 16:44 09/05/20 16:44 Physical Exam GI GI Narrative: Soft, dressings are clean and dry Assessment & Plan Assessment/Plan (1) Hernia, hiatal: (2) GERD (gastroesophageal reflux disease): QUALIFIERS: Esophagitis presence: with esophagitis Esophagitis bleeding: without hemorrhage Qualified Code(s): K21.00 - Gastro-esophageal reflux disease with esophagitis, without bleeding PLAN: I am recommending mobilization to the patient. We will initiate her on clear liquids. She clearly is having ongoing pain control requirements so we will hold onto her overnight. I have instructed the patient that I am anticipating discharge tomorrow. I will be out of town starting tomorrow morning. In my absence the patient will be cared for by Nella Cruz PA-C and Dr. Rufus Patel
[2020-09-07] MEDS: Ketorolac 15 MG/ML Vial IV (16:54)
[2020-09-07] MEDS: Pantoprazole Sodium 40 MG Tablet PO (22:37)
[2020-09-08 02:44] VITALS: BMI 28.7
[2020-09-08 02:45] VITALS: BP 158/82; PULSE 65; RESP 16; TEMP 36.9; O2SAT 98
[2020-09-08] MEDS: Acetaminophen 325 MG Tablet 650 MG PO ×2 (03:35→11:10)
[2020-09-08 06:44] VITALS: BMI 28.7
--- NOTE | 2020-09-08 07:38 | PCM.PN.SRG ---
Subjective Subjective Patient evaluated resting comfortably in bed. She notes incisional discomfort and intermittent shoulder/gas pains. She denies nausea, vomiting. She is tolerating her clear liquid diet well. She has been ambulating well. Objective Data Objective Data Vital Signs: Vital Signs Temp Pulse Resp BP Pulse Ox 98.5 F 65 16 158/82 H 98 09/08/20 02:45 09/08/20 02:45 09/08/20 02:45 09/08/20 02:45 09/08/20 02:45 Oxygen Delivery Method Room Air Weight: 167 lb 5.294 oz Body Mass Index (BMI) 28.7 Intake & Output: Intake and Output for Last 24 Hours 09/06/20 09/07/20 09/08/20 23:59 23:59 23:59 Intake Total 2770 / 2770 200 / 200 Output Total 400 / 400 Balance 2770 / 2770 -200 / -200 Lab / Micro Data Result Diagrams: 09/05/20 16:44 09/05/20 16:44 Physical Exam Const alert, oriented x3 and no apparent distress GI GI Narrative: Incisions c/d/i. No erythema or infection noted. Slightly tender around incision sites. Dressings intact. Auscultation: hypoactive bowel sounds Palpation: soft and tender Assessment & Plan Assessment/Plan (1) Hernia, hiatal: PLAN: Evaluated patient in conjunction with Dr. Patel. Patient is progressing very well Will advance to full liquid diet Diet recommendations were provided to the patient for when she goes home Patient prefers to use Tylenol Small script given for oxyir however discussed with patient that if she does not need stronger pain medication she does not have to take this. Hopeful discharge later today Follow-up with our office in 7-10 days (2) GERD (gastroesophageal reflux disease): QUALIFIERS: Esophagitis presence: with esophagitis Esophagitis bleeding: without hemorrhage Qualified Code(s): K21.00 - Gastro-esophageal reflux disease with esophagitis, without bleeding Charges/Coding Visit Charges Inpatient E&M: 13224 Init Hosp L1 (No charge; post op)
--- NOTE | 2020-09-08 07:44 | PCM.DC ---
Discharge Instructions Diet Discharge Diet: - Activity May shower in (days): 1 Lifting Restrictions: 10 pounds Additional Activity Instructions:: Dietary and activity instructions per the preprinted [facility] surgical associate laparoscopic Juventino fundoplication instructions Dressing / Incision Call your doctor if your incision/area has: Continuous Slow Oozing, Sudden Increased Bleeding, Increased Pain/ Swelling, Increased Redness and Foul Smelling Discharge Call your doctor if you observe: Fever of 101 or Higher Suture Line Care: Avoid Pulling/Pushing and Avoid Pinching/Bending Remove Dressing in: 4 days Cleanse incision/area with: Soap & Water Additional Dressing/Incision Instructions:: Change or remove dressing in 4 days. Leave steri-strips in place for 1 week. Follow Up Care Please Follow Up With: Beau Randolph MD When: 7-10 days Test Results: Test results from this visit will be discussed in further detail at your follow-up appointment, if applicable. Discharge Plan Admission Admit Date/Time: 09/07/20 10:43 Primary Reason for Your Visit: Symptomatic hiatal hernia and reflux disease Attending Provider: Beau Randolph Primary Care Provider: Celena Baca NP Instructions Patient Instructions: ED Chest Pain, Noncardiac Additional Instructions / Restrictions: Paper instructions provided to patient for home-going instructions and diet instructions. You are to stay on a liquid diet until your office appointment in 10 days. Please call our office if any questions or concerns. Discharge Orders/Prescriptions Prescriptions: New oxycodone 5 mg Tablet 5 mg PO Q6H PRN PRN (Reason: Pain Score 1-10) 2 Days Qty: 6 RF: 0 Continued escitalopram oxalate 20 MG tablet 10 mg PO DAILY RF: 0 omeprazole 20 mg Tablet,Delayed Release (Dr/Ec) 40 mg PO BID RF: 0 valsartan 40 mg Tablet 40 mg PO DAILY RF: 0 rfwkavsajxfp-cfc-vcddmzf-FA 200-0.4 mg Tablet,Chewable 1 tab PO DAILY RF: 0 cholecalciferol (vitamin D3) [Vitamin D3] 25 mcg (1,000 unit) Tablet 25 mcg PO DAILY RF: 0 levomefolate calcium 15 mg Tablet 15 mg PO DAILY RF: 0 Referrals / Follow Up: Beau Randolph MD [STAFF PHYSICIAN] - 09/16/20 (Please call our office to schedule a follow-up appointment) Ciesa,Celena BAND SAW RUNNER, BAND SAW RUNNER-C [Primary Care Provider] - Disposition Disposition (needs filled in before D/C Order can be placed): Home, self care
[2020-09-08 08:08] VITALS: BP 153/82; PULSE 72; RESP 18; TEMP 37.3; O2SAT 94
[2020-09-08] MEDS: Escitalopram Oxalate 10 MG Tablet PO (08:12)
[2020-09-08] MEDS: Pantoprazole Sodium 40 MG Tablet PO (08:12)
[2020-09-08] MEDS: Losartan Potassium 25 MG Tablet PO (08:12)
[2020-09-08 10:44] VITALS: BMI 28.7
--- NOTE | 2020-09-08 12:10 | CASEMGMT ---
ALIE CM in to complete DIAS Form with patient. RN BARRON explained DIAS form to patient, patient voiced understanding. Patient signed DIAS form and filed in chart. Patient provided with copy of signed DIAS Form. Patient had no further questions or concerns regarding discharge instructions.
[2020-09-08 13:38] VITALS: BP 148/88; PULSE 84; RESP 18; TEMP 36.9; O2SAT 95
== END 2020-09-08 14:43 | disposition home or self-care (01) ==
LOC: SDC 14:47 → MS3 14:47
PROVIDERS: Admitting Provider Surgery; PCP Nurse Practitioner; Referring Provider Surgery; Visit Provider Surgery
PROC: (CPT 43325; principal; 2020-09-07 07:10)
DX: K44.9 Diaphragmatic hernia without obstruction or gangrene (principal); K21.01 Gastro-esophageal reflux disease with esophagitis, with bleeding; K90.0 Celiac disease; F41.9 Anxiety disorder, unspecified; I10 Essential (primary) hypertension; M19.90 Unspecified osteoarthritis, unspecified site; Z79.899 Other long term (current) drug therapy; G25.81 Restless legs syndrome
CPT/HCPCS: 00790; 43281; 36415; 80048; 85027; 88302; 93005; 96374; 99218; 99251; J7120; G0378; G0379; G0463; J2405

== ENCOUNTER → 2020-09-16 13:51 | Outpatient (CLI) | payer OTHER, SELFPAY ==
[2020-09-07 05:57] VITALS: BMI 28.7
== END ==
PROVIDERS: PCP Nurse Practitioner; Referring Provider Physician Assistant; Visit Provider Physician Assistant
DX: R19.7 Diarrhea, unspecified (principal)
CPT/HCPCS: 87493

== ENCOUNTER → 2020-09-29 12:22 | Outpatient (CLI) | payer OTHER, SELFPAY ==
[2020-09-07 05:57] VITALS: BMI 28.7
--- NOTE | 2020-09-29 12:24 | US_ITS ---
STUDY: RENAL ULTRASOUND - COMPLETE REASON FOR EXAM: Female, 65 years old. LT SIDED FLANK PAIN TECHNIQUE: Ultrasound evaluation of the kidneys was performed with real-time and static day-scale imaging. COMPARISON: None. FINDINGS: RIGHT KIDNEY: Normal location of the right kidney, which is normal in size. The right kidney measures 10.2 cm x 4.4 cm x 3.7 cm. There is a normal cortex of the right kidney. The renal cortex measures 1.2 cm. There is no right renal mass or cyst. There are no right renal calculi. There is no right hydronephrosis. DISTAL RIGHT URETER: There is non-visualization of the distal right ureter. There is no demonstrated right ureterovesical junction calculus. There is a visualized right ureteral jet. LEFT KIDNEY: Normal location of the left kidney, which is normal in size. The left kidney measures 9.9 cm x 4 cm x 5.2 cm. There is a normal cortex of the left kidney. The renal cortex measures 1.2 cm. There is no left renal mass or cyst. There are no left renal calculi. There is no left hydronephrosis. DISTAL LEFT URETER: There is non-visualization of the distal left ureter. There is no demonstrated left ureterovesical junction calculus. There is a visualized left ureteral jet. BLADDER: The distended urinary bladder has a volume of 216 ml. There is a normal wall thickness of the distended urinary bladder. There is no demonstrated mass within the urinary bladder. There are no demonstrated bladder calculi. US/Kidney and Bladder IMPRESSION: Normal ultrasound of the kidneys and urinary bladder. Electronically Signed: Emerson Rico MD at 13:58 EDT , Service support ,
== END ==
PROVIDERS: PCP Nurse Practitioner; Referring Provider Nurse Practitioner; Visit Provider Nurse Practitioner
DX: R10.9 Unspecified abdominal pain (principal)
CPT/HCPCS: 76770

== ENCOUNTER → 2020-11-09 13:14 | Outpatient (CLI) | payer OTHER, SELFPAY ==
[2020-11-09 14:53] LABS: Absolute Neutrophil Count 1.9 X10^3/uL (2.0-7.7); Basophil# 0.04 X10^3/uL; Eosinophil# 0.25 X10^3/uL; Hematocrit 35.4 % (37-47); Hemoglobin 11.9 g/dL (12.0-15.0); Mean Corp Hgb Conc 33.6 g/dL (32-36); Mean Corpuscular Hgb 33.4 pg (27.0-32.0); Mean Corpuscular Volume 99.4 fL (81-99); Mean Platelet Vol. 10.8 fl (6.2-12.0); Monocyte# 0.74 X10^3/uL; Monocyte% 17.7 % (0-10); NRBC Flagged by Analyzer 0 % (0-5); Neutrophil # 1.85 X10^3/uL (2.7-7.7); Neutrophil % 44.1 % (47-70); Platelet Count 217 K/mm3 (150-450); RBC Distribution Width CV 12.9 % (11.6-14.6); RBC Distribution Width SD 47.4 fl (35.1-43.9); Red Blood Count 3.56 M/mm3 (4.2-5.4); White Blood Count 4.2 K/mm3 (4.4-11.0)
[2020-11-09 15:20] LABS: Albumin, Serum 3.5 g/dL (3.2-5.0); BUN 16 mg/dL (7-18); BUN/Creat Ratio 25.7 RATIO (10-20); Calcium,Total 8.4 mg/dL (8.5-10.1); Chloride 107 mmol/L (98-107); Creatinine, Serum 0.62 mg/dL (0.55-1.02); EST Glomerular Filtration Rate 102 mL/min (>60); Est Glom Filt Rate - Afr Amer 123 mL/min (>60); Glucose 92 mg/dL (74-106); Phosphorus 3.1 mg/dL (2.5-4.9); Potassium 3.7 mmol/L (3.5-5.1); Sodium Level 139 mmol/L (136-145)
== END ==
PROVIDERS: PCP Nurse Practitioner; Referring Provider Nurse Practitioner; Visit Provider Nurse Practitioner
DX: I10 Essential (primary) hypertension (principal)
CPT/HCPCS: 36415; 80069; 85025

== ENCOUNTER → 2020-11-17 15:19 | Outpatient (CLI) | payer OTHER, SELFPAY ==
[2020-11-02 11:29] VITALS: BMI 27.4
--- NOTE | 2020-11-17 15:19 | MRI_ITS ---
STUDY: MRI THORACIC SPINE WITHOUT CONTRAST REASON FOR EXAM: Female, 65 years old. pain TECHNIQUE: Standardized fat and water weighted pulse sequences were obtained in the sagittal and axial planes. COMPARISON: None. FINDINGS: Normal kyphosis of the thoracic spine. There is no substantial scoliosis. T1-2, T2-3, T3-4, T4-5, T5-6, T6-7, T7-8, T8-9, T9-10, T10-11, T11-12: Normal endplates. Normal disc hydration, heights and morphology of the corresponding intervertebral discs. Normal central canal and intervertebral neural foramina at the corresponding levels. Normal visualized thoracic cord. Normal conus medullaris that terminates at the . Trace bilateral pleural effusions. 2.2 cm T1/T2 hyperintense lesion in the superior mediastinum, possible complex thyroid cyst.. MRI/Spine Thoracic (Routine) IMPRESSION: 1. Unremarkable MRI examination of the thoracic spine. 2. Small pleural effusions. 3. Complex thyroid cyst. Consider nonemergent thyroid ultrasound for further evaluation. Electronically Signed: Alyssia Dubon MD at 16:59 EDT Tel , Service support ,
--- NOTE | 2020-11-17 15:19 | MRI_ITS ---
STUDY: MR PELVIS WITH T WITHOUT CONTRAST REASON FOR EXAM: Female, 65 years old. pain -- attn: Coccyx, F/U TO CT TECHNIQUE: Standardized fat and water weighted pulse sequences were obtained in all 3 orthogonal planes, pre-and post contrast administration. 15ml IV Dotarem was administered for the contrast portion of the examination. COMPARISON: CT 07/25/2020 FINDINGS: Normal urinary bladder. Normal visualized small intestine. Normal visualized colon. There is no pelvic fluid. There is no change in a 2.5 cm round circumscribed T1 hypointense, T2 hyperintense, heterogeneously enhancing mass with macrocalcifications just inferior to the coccyx which may represent myositis ossificans. Normal visualized pelvic arteries. Suspect healed fracture of the mid sacrum. Normal abdominal wall. MRI/Pelvis W/WO Contrast IMPRESSION: No change in 2.5 cm rounded partially calcified mass inferior to the coccyx which may represent myositis ossificans or enchondroma. Electronically Signed: Todd Gates MD at 9:28 EDT Tel , Service support ,
== END ==
PROVIDERS: PCP Nurse Practitioner; Referring Provider Orthopaedic Surgery; Visit Provider Orthopaedic Surgery
DX: M53.3 Sacrococcygeal disorders, not elsewhere classified (principal); M51.24 Other intervertebral disc displacement, thoracic region; R93.89 Abnormal findings on diagnostic imaging of other specified body structures
CPT/HCPCS: 72146; 72197; A9575

== ENCOUNTER → 2020-12-02 10:43 | Outpatient (CLI) | payer OTHER, SELFPAY ==
--- NOTE | 2020-12-03 10:15 | PFT ---
INTRODUCTION: The patient is a 65-year-old female that presents for pulmonary function studies secondary to a diagnosis of COPD. Respiratory therapy reports good patient effort. Bronchodilators were used during testing. INTERPRETATION: Forced expiration spirometry demonstrates the presence of a mild large airways obstructive ventilatory defect. There was no significant response to aerosolized bronchodilators. Spirograms are of good quality and plateau normally. Body plethysmography was performed and revealed an elevated RV to 127% of predicted, indicative of underlying air trapping. Diffusing capacity by single breath CO is within normal limits. IMPRESSION: Irreversible mild large airways obstructive ventilatory defect with associated air trapping and preserved diffusing capacity.
== END ==
PROVIDERS: PCP Nurse Practitioner; Visit Provider Nurse Practitioner
DX: J44.9 Chronic obstructive pulmonary disease, unspecified (principal)
CPT/HCPCS: 94060; 94726; 94729

== ENCOUNTER → 2020-12-13 11:21 | Outpatient (CLI) | payer OTHER, SELFPAY ==
--- NOTE | 2020-12-13 11:22 | US_ITS ---
STUDY: THYROID ULTRASOUND REASON FOR EXAM: Female, 65 years old. THYROID CYST TECHNIQUE: Ultrasound evaluation of the thyroid was performed with real-time and static bain-scale imaging. COMPARISON: None. FINDINGS: RIGHT LOBE: The right lobe of the thyroid gland measures 4.9 cm x 2.2 cm x 2.5 cm. There is a homogeneous echotexture. There is a complex solid and cystic nodule in the mid and lower pole of the right lobe of the thyroid measuring 2.6 cm x 2.6 cm x 2.5 cm. There is evidence of intranodular vascularity. LEFT LOBE: The left lobe of the thyroid gland measures 4.3 cm x 1.1 cm x 1 cm. There is a homogeneous echotexture. There is a 3 mm x 2 mm x 1 mm cyst in the upper pole. ISTHMUS: The isthmus measures 2 mm. The regional lymph nodes are normal. US/Thyroid IMPRESSION: 2.6 cm x 2.6 x 2.5 cm complex solid and cystic nodule in the mid and lower pole of the right lobe of the thyroid. Biopsy recommended. 3 mm x 2 mm x 1 mm cyst in the upper pole of the left lobe. Electronically Signed: Emerson Rico MD at 15:07 EDT , Service support ,
== END ==
PROVIDERS: PCP Nurse Practitioner; Referring Provider Nurse Practitioner; Visit Provider Nurse Practitioner
DX: E04.1 Nontoxic single thyroid nodule (principal)
CPT/HCPCS: 76536

== ENCOUNTER → 2020-12-28 14:29 | Outpatient (CLI) | payer OTHER, SELFPAY ==
[2020-12-28 18:00] LABS: CRP < 2.90 mg/L (0.0-3.0)
[2020-12-30 16:10] LABS: Endomysial Antibody IgA Negative (Negative)
[2020-12-30 16:51] LABS: Immunoglobulin A 120 mg/dL (87-352); t-Transglutaminase IgA <2 U/mL (0-3)
== END ==
PROVIDERS: PCP Nurse Practitioner; Referring Provider Internal Medicine Gastroenterology; Visit Provider Internal Medicine Gastroenterology
DX: R19.7 Diarrhea, unspecified (principal)
CPT/HCPCS: 36415; 82784; 83516; 86140; 86255

== ENCOUNTER → 2021-01-09 | Outpatient (CLI) | payer OTHER, SELFPAY ==
--- NOTE | 2021-01-09 | FLU_PTH ---
PATIENT: HENRY VIDES LOC: [facility]#:[id number] AGE/SX: 65/F ROOM: RE01/09/[address]: Dr. Gilbert Sinclair MD : [id number] BED: DIS: 01/09/2021 SPEC #: [id number] RECD: 01/09/21 17:09 STATUS: GERARDO REManjit #: [id number] DAVE: 01/09/21 00:[address]: Gilbert Sinclair DEPT: CYTOLOGY RECD BY: Lance Bentley ENTERED: 01/10/21 08:33 SP TYPE: Fluid OTHR DR: Celena Baca, TEST PULLER-C Tissues: A - Thyroid gland, NOS B - Thyroid gland, NOS Procedures: Special Stain Group II Surgery Specimen Level IV Cytospin Fluid HEADER OPERATION: Ultrasound-guided fine needle aspiration, right thyroid PRE-OP DIAGNOSIS: Right thyroid nodule TISSUE SUBMITTED: A ? FNA, right thyroid fluid for cytology, B - FNA, right thyroid x12 slides DIAGNOSIS CYTOLOGY A. Right thyroid nodule fluid, ultrasound-guided FNA (cytospin and cell block): Consistent with cyst contents. See comment. B. Right thyroid nodule, ultrasound-guided FNA (smears): Consistent with benign follicular nodule with extensive changes. Adequate for evaluation. See comment. SJ:caty 01/11/2021 COMMENT A. The specimen predominantly consists of macrophages and a few benign follicular cells. B. The specimen predominantly consists of macrophages and a few clusters of benign follicular cells. Correlation with clinical, radiologic findings and appropriate follow up are necessary. CYTOLOGY STUDY Slides are reviewed. CYTOLOGY GROSS A - Received is 30 ml of brown, cloudy fluid labeled with the patient's name and and designated per the requisition as right thyroid. Submitted for cytology preparation including cell block. B - Received are 12 smears labeled with the patient's name and designated per the requisition as right thyroid. Submitted for staining. / caty 01/10/2021 TC:5 CPT: 19860, 30249, 97266
== END | disposition home or self-care (01) ==
LOC: LABSPEC 01-10 08:07
PROVIDERS: PCP Nurse Practitioner; Referring Provider Surgery; Visit Provider Surgery
DX: E04.1 Nontoxic single thyroid nodule (principal)
CPT/HCPCS: 88108; 88305; 88313

== ENCOUNTER → 2021-02-03 09:10 | Outpatient (CLI) | payer OTHER, SELFPAY ==
--- NOTE | 2021-02-03 09:12 | RAD_ITS ---
STUDY: AIR CONTRAST UPPER GI SERIES and esophagram. REASON FOR EXAM: Female, 65 years old. K21.00 - Gastro-esophageal reflux disease with esophagitis, without bleeding FLUOROSCOPY TIME (if supplied): (1 minute and 22 seconds) minutes/seconds TECHNIQUE: SINGLE CONTRAST AND AIR CONTRAST FLUOROSCOPIC IMAGES. COMPARISON: None. FINDINGS: The cervical esophagus demonstrates normal motility without aspiration. There is no stricture or extrinsic mass effect. No intraluminal polypoid mass is identified. The thoracic esophagus distends well without stricture or mucosal fold thickening. No mucosal ulcerations are identified. There is no extrinsic mass effect. There are no diverticula. There is evidence of gastroesophageal reflux. The stomach distends well without mucosal fold thickening or mucosal ulceration. There is no intraluminal mass. The duodenal bulb is freely distensible without deformity or ulceration. The duodenal sweep is normal in position and caliber. RAD/Upper GI w/BA Swallow IMPRESSION: Gastroesophageal reflux. Electronically Signed: Emerson Rico MD at 15:22 EST , Service support ,
== END ==
PROVIDERS: PCP Nurse Practitioner; Referring Provider Surgery; Visit Provider Surgery
DX: K21.00 Gastro-esophageal reflux disease with esophagitis, without bleeding (principal); K44.9 Diaphragmatic hernia without obstruction or gangrene; R07.9 Chest pain, unspecified
CPT/HCPCS: 74246

== ENCOUNTER 2021-06-09 16:47 | Outpatient (CLI) | payer BC, SELFPAY ==
[2021-06-09 17:29] LABS: Erythrocyte Sedimentation Rate 3 mm/hr (0-30)
[2021-06-09 17:58] LABS: CRP < 2.90 mg/L (0.0-3.0); LDH 259 U/L (84-246)
[2021-06-11 15:07] LABS: Anti-Centromere B Ab <0.2 AI (0.0-0.9); Anti-Chromatin 0.2 AI (0.0-0.9); Anti-Jo <0.2 AI (0.0-0.9); Anti-Scleroderma-70 AB <0.2 AI (0.0-0.9); RNP Ab <0.2 AI (0.0-0.9); SJOGREN'S Anti-SS-A test 0.2 AI (0.0-0.9); SJOGREN'S Anti-SS-B test < 0.2 AI (0.0-0.9); Smith Ab <0.2 AI (0.0-0.9)
[2021-06-11 16:07] LABS: Anti-dsDNA Ab <1 IU/mL (0-9)
[2021-06-15 13:10] LABS: Cytoplasmic Ab (C-ANCA) <1:20 titer (Neg:<1:20); Immunoglobulin A 132 mg/dL (87-352); Immunoglobulin E 12 IU/mL (6-495); Immunoglobulin G 1506 mg/dL (586-1602)
[2021-06-15 14:54] LABS: Immunoglobulin M 48 mg/dL (26-217); Perinuclear Ab (P-ANCA) <1:20 titer (Neg:<1:20)
== END 2021-06-09 23:59 | disposition home or self-care (01) ==
LOC: LAB 16:50
PROVIDERS: PCP Nurse Practitioner; Visit Provider Internal Medicine Gastroenterology
DX: R19.7 Diarrhea, unspecified (principal)
CPT/HCPCS: 36415; 82784; 82785; 83615; 85652; 86140; 86225; 86235; 86256

== ENCOUNTER 2021-06-19 14:09 | Outpatient (CLI) | payer BC, SELFPAY ==
[2021-06-21 15:08] LABS: PROEL- A/G Ratio 1.3 (0.7-1.7); PROEL- Albumin 3.8 g/dL (2.9-4.4); PROEL- Alpha-1 Globulin 0.2 g/dL (0.0-0.4); PROEL- Alpha-2 Globulin 0.6 g/dL (0.4-1.0); PROEL- Beta Globulin 0.7 g/dL (0.7-1.3); PROEL- Gamma Globulin 1.5 g/dL (0.4-1.8); PROEL- TOTAL PROTEIN 6.8 g/dL (6.0-8.5)
[2021-06-23 18:26] LABS: Calprotectin, Stool 28 ug/g (0-120); Fats, Neutral Normal (.); Fats, Total Normal (.)
== END 2021-06-19 23:59 | disposition home or self-care (01) ==
LOC: LABSPEC 14:10
PROVIDERS: PCP Nurse Practitioner; Visit Provider Internal Medicine Gastroenterology
DX: R19.7 Diarrhea, unspecified (principal); K90.0 Celiac disease
CPT/HCPCS: 36415; 82705; 83993; 84165; 87177; 87209; 87329

== ENCOUNTER → 2021-08-07 | Outpatient (CLI) | payer BC, SELFPAY ==
[2021-08-07 12:30] LABS: Absolute Lymphocyte Count 1.26 X10^3/uL (0.83-4.51); Absolute Neutrophil Count 2.4 X10^3/uL (2.0-7.7); Basophil# 0.04 X10^3/uL; Basophil% 0.8 % (0-1); Eosinophil# 0.37 X10^3/uL; Eosinophils% 7.4 % (0-5); Hematocrit 37.5 % (37-47); Hemoglobin 12.4 g/dL (12.0-15.0); Lymphocyte # 1.26 X10^3/ul (0.83-4.51); Lymphocyte % 25.1 % (19-41); Mean Corp Hgb Conc 33.1 g/dL (32-36); Mean Corpuscular Hgb 34.7 pg (27.0-32.0); Mean Platelet Vol. 11.1 fl (6.2-12.0); Monocyte# 0.93 X10^3/uL; Monocyte% 18.6 % (0-10); NRBC Flagged by Analyzer 0 % (0-5); Neutrophil # 2.38 X10^3/uL (2.7-7.7); Neutrophil % 47.5 % (47-70); Platelet Count 224 K/mm3 (150-450); RBC Distribution Width CV 14.1 % (11.6-14.6); RBC Distribution Width SD 54.9 fl (35.1-43.9); Red Blood Count 3.57 M/mm3 (4.2-5.4)
[2021-08-07 13:17] LABS: Cholesterol 116 mg/dL (200); High Density Lipoprotein 60 mg/dL; LDH 226 U/L (84-246); Thyroid Stim Hormone (TSH) 3.69 uIU/mL (0.358-3.74); Triglycerides 72 mg/dL
[2021-08-08 17:07] LABS: Endomysial Antibody IgA Negative (Negative); Immunoglobulin A 133 mg/dL (87-352); LDL, Direct 120295 48 mg/dL (0-99)
[2021-08-08 22:11] LABS: Deamidated Gliadin IgA 6 units (0-19); Deamidated Gliadin IgG 4 units (0-19); Gastrin, Serum 32 pg/mL (0-115); t-Transglutaminase IgA <2 U/mL (0-3)
== END | disposition home or self-care (01) ==
LOC: LAB 11:42
PROVIDERS: PCP Nurse Practitioner; Referring Provider Internal Medicine Gastroenterology; Visit Provider Internal Medicine Gastroenterology
DX: K90.0 Celiac disease (principal); K58.0 Irritable bowel syndrome with diarrhea
CPT/HCPCS: 36415; 82465; 82784; 82941; 83516; 83615; 83718; 83721; 84443; 84478; 85025; 86255

== ENCOUNTER → 2021-11-13 | Outpatient (CLI) | payer BC, SELFPAY ==
--- NOTE | 2021-11-13 11:50 | RAD_ITS ---
STUDY: X-RAY - ABDOMEN/PELVIS REASON FOR EXAM: Female, 66 years old. CAPSULE ENDOSCOPY RETENTION TECHNIQUE: Single AP view of the abdomen / pelvis. COMPARISON: None. FINDINGS: Normal visualized lung bases. There is an unremarkable bowel gas pattern. The visualized liver, spleen and kidneys are grossly normal in size and morphology. Calcific opacities in the pelvis consistent with calcified degenerated fibroids. No metallic radiopaque foreign body to suggest retained endoscopy camera capsule. Normal visualized osseous structures. RAD/Abdomen Single View IMPRESSION: No radiographic evidence of retained endoscopy camera capsule. Electronically Signed: Todd Gates MD at 17:14 EDT ,
== END | disposition home or self-care (01) ==
LOC: RAD 11:47
PROVIDERS: PCP Nurse Practitioner; Referring Provider Internal Medicine Gastroenterology; Visit Provider Internal Medicine Gastroenterology
DX: R10.13 Epigastric pain (principal)
CPT/HCPCS: 74018

== ENCOUNTER → 2021-12-01 | Outpatient (CLI) | payer BC, SELFPAY ==
[2021-12-01 15:11] LABS: Absolute Lymphocyte Count 1.32 X10^3/uL (0.83-4.51); Absolute Neutrophil Count 2.4 X10^3/uL (2.0-7.7); Basophil# 0.03 X10^3/uL; Basophil% 0.6 % (0-1); Eosinophil# 0.28 X10^3/uL; Eosinophils% 5.8 % (0-5); Hematocrit 39.9 % (37-47); Hemoglobin 13.5 g/dL (12.0-15.0); Lymphocyte # 1.32 X10^3/ul (0.83-4.51); Lymphocyte % 27.2 % (19-41); Mean Corp Hgb Conc 33.8 g/dL (32-36); Mean Corpuscular Hgb 35.1 pg (27.0-32.0); Mean Corpuscular Volume 103.6 fL (81-99); Mean Platelet Vol. 10.8 fl (6.2-12.0); Monocyte# 0.83 X10^3/uL; Monocyte% 17.1 % (0-10); NRBC Flagged by Analyzer 0 % (0-5); Neutrophil # 2.39 X10^3/uL (2.7-7.7); Neutrophil % 49.1 % (47-70); Platelet Count 220 K/mm3 (150-450); RBC Distribution Width CV 13.4 % (11.6-14.6); RBC Distribution Width SD 51.2 fl (35.1-43.9); RET-HE 36.5 pg (30-35); Red Blood Count 3.85 M/mm3 (4.2-5.4); Reticulocyte Count 1.17 % (0.5-1.5); White Blood Count 4.9 K/mm3 (4.4-11.0)
[2021-12-01 15:37] LABS: Vitamin B12 > 2000 pg/mL (211-911); Vitamin D,25 Hydroxy 36.9 ng/mL
[2021-12-01 15:48] LABS: ALB/GLOB Ratio 0.9 RATIO (0.9-2.4); AST(SGOT) 22 U/L (15-37); Alanine Aminotransfer ALT/SGPT 33 U/L (13-56); Albumin, Serum 3.5 g/dL (3.2-5.0); Alkaline Phosphatase 116 U/L (45-117); Anion Gap 5 (5-15); BUN 22 mg/dL (7-18); BUN/Creat Ratio 26.8 RATIO (10-20); Calcium,Total 8.7 mg/dL (8.5-10.1); Chloride 109 mmol/L (98-107); Creatinine, Serum 0.82 mg/dL (0.55-1.02); EST Glomerular Filtration Rate 74 mL/min (>60); Est Glom Filt Rate - Afr Amer 89 mL/min (>60); Ferritin 256 ng/mL (8-252); Globulin 3.8 g/dL (2.2-4.2); Glucose 99 mg/dL (74-106); Iron 183 ug/dL (50-170); Iron Binding Capacity,Total 256 ug/dL (250-450); Potassium 4.3 mmol/L (3.5-5.1); Protein, Total 7.3 g/dL (6.4-8.2); Sodium Level 141 mmol/L (136-145)
== END | disposition home or self-care (01) ==
LOC: LAB 14:43
PROVIDERS: PCP Nurse Practitioner Family; Visit Provider Nurse Practitioner Family
DX: D64.9 Anemia, unspecified (principal)
CPT/HCPCS: 36415; 80053; 82306; 82607; 82728; 82746; 83540; 83550; 85025; 85045

== ENCOUNTER → 2021-12-19 | Outpatient (CLI) | payer BC, SELFPAY ==
--- NOTE | 2021-12-19 12:50 | BI_ITS ---
MAMMOGRAPHY - BILATERAL SCREENING REASON FOR EXAM: Female, 66 years old. Routine annual screening examination. PERTINENT HISTORY: Non-contributory. Bilateral breast implants. TECHNIQUE: Digital bilateral breast sada (3D mammographic acquisition) in the CC and MLO projections. 2-D mediolateral oblique (MLO) and craniocaudad (CC) views of both breasts were obtained. CAD: Full Field Digital Mammography with Computer Added Detection was performed. COMPARISON: Comparison is made with prior study 12/08/2019 and 02/08/2017. FINDINGS: Breast Composition: The breasts are heterogeneously dense, which may obscure small masses. There are no dominant masses or suspicious calcifications. Stable appearance of the bilateral breast implants. Stable small benign-appearing bilateral axillary lymph nodes. No other significant abnormalities are identified. There has been no significant change since the prior study. BI/SCRN MAMM (CAD)W/SADA BILAT IMPRESSION: Stable bilateral screening mammogram. Yearly follow-up mammogram recommended. (A) ASSESSMENT CATEGORY: BIRADS Category 2: Benign. A letter regarding these results will be sent to the patient by the facility within 30 days. Approximately 10% of breast cancers are not detected by mammography. A normal mammogram should not delay biopsy of a clinically suspicious abnormality. [id number] Electronically Signed: Emerson Rico MD at 14:20 EDT ,
--- NOTE | 2021-12-19 12:56 | BD_ITS ---
STUDY: DUAL ENERGY X-RAY ABSORPTIOMETRY / DXA REASON FOR EXAM: Female, 66 years old. Z780. Patient is postmenopausal. TECHNIQUE: Bone Mineral Density (BMD) measurements of lumbar spine and bilateral hips were obtained. COMPARISON: Comparison is made with prior study 12/08/2019. FINDINGS: Lumbar Spine (L1-L4): g/cm2 (0.792) / T-score (-2.3) / Z-score (-0.4) Findings are suggestive of osteopenia with a high fracture risk. Left Femur Total: g/cm2 (0.837) / T-score (-0.9) / Z-score (0.5) Left Femoral Neck: g/cm2 (0.635) / T-score (-1.9) / Z-score (-0.3) Right Femur Total: g/cm2 (0.760) / T-score (-1.5) / Z-score (-0.1) Right Femoral Neck: g/cm2 (0.664) / T-score (-1.7) / Z-score (0.0) The T-Scores on the most recent prior examination were: Lumbar Spine (L1-L4): There has been worsening of bone density since the previous examination. Left Femur Total: which represents a worsening of 1.4%. Right Femur Total: which represents a worsening of 3.8%. BD/Dexa Bone Density Study IMPRESSION: The patient is considered osteopenic as outlined below according to World Jean Organization (WHO) criteria with a high fracture risk. There has been worsening of bone density since the previous examination. Reference Information: The T-score is the number of standard deviations above or below the standard which is normal for young adults at their peak bone mineral density. The World Health Organization (WHO) interprets the T-scores as follows: Above -1 Normal bone density Between -1 and -2.5 Osteopenia Equal to / or below -2.5 Osteoporosis As a practical clinical guideline, osteopenia may be graded as follows: Mild -1 through -1.5 Moderate -1.6 through -2.0 Severe -2.1 through -2.4 The Z-score is the number of standard deviations above or below age-matched controls. A Z-score of less than -1.5 would be considered abnormal. References: 1. NIH Osteoporosis and Related Bone Diseases www osteo.org 2. International Society for Clinical Densitometry www iscd.org 3. National Osteoporosis Foundation www nof.org Electronically Signed: Emerson Rico MD at 13:19 EDT ,
== END | disposition home or self-care (01) ==
LOC: OPBD 12:47
PROVIDERS: PCP Nurse Practitioner Family; Visit Provider Nurse Practitioner Family
DX: Z12.31 Encounter for screening mammogram for malignant neoplasm of breast (principal); Z78.0 Asymptomatic menopausal state
CPT/HCPCS: 77063; 77067; 77080

== ENCOUNTER → 2021-12-21 | Outpatient (CLI) | payer BC, SELFPAY ==
--- NOTE | 2021-12-21 10:18 | NM_ITS ---
CLINICAL: 66-year-old female with history of gastroesophageal reflux disease, celiac disease and suspected gastroparesis. SEMI-SOLID PHASE 99m Tc SULFUR COLLOID GASTRIC EMPTYING STUDY COMPARISON: None available FINDINGS: The patient was administered 1.0 mCi of 99m Tc sulfur colloid mixed with oatmeal and consumed per os. Image acquisitions in the anterior-posterior projections were obtained for 60 minutes. There is prompt visualization of the stomach. There is no gastroesophageal reflux identified. First order kinetics are maintained throughout the duration of the acquisitions. The T ? linear fit was calculated to be 102.77 minutes, (Normal: 12-56 minutes). NM/Gastric Emptying Study IMPRESSION: 1. ABNORMAL 99m Tc sulfur colloid semi-solid phase (oatmeal) gastric emptying imaging examination. A. There is delayed semi-solid phase gastric emptying compared to normal controls with maintained first order kinetics throughout all components of the examination. (Rishi beard al, J Nucl Med Tech 38: 186, 2010). Electronically Signed: Todd Hou, at 23:14 EDT ,
== END | disposition home or self-care (01) ==
LOC: NM 10:17
PROVIDERS: PCP Nurse Practitioner Family; Referring Provider Internal Medicine Gastroenterology; Visit Provider Internal Medicine Gastroenterology
DX: R10.13 Epigastric pain (principal)
CPT/HCPCS: 78264; A9541

== ENCOUNTER 2022-01-01 06:34 | Day surgery (SDC) | payer BC, SELFPAY ==
--- NOTE | 2022-01-01 | GASB_PTH ---
PATIENT: HENRY VIDES LOC: EN U#:[id number] AGE/SX: 66/F ROOM: RE01/01/[address]: Dr. Darrel Lezama DO : 1955 BED: DIS: 01/01/2022 SPEC #: [id number] RECD: 01/01/22 12:38 STATUS: GERARDO REManjit #: [id number] DAVE: 01/01/22 00:[address]: Darrel Lezama DEPT: SURGICAL PATHOLOGY RECD BY: Lance Bentley ENTERED: 01/01/22 12:38 SP TYPE: Gastric Bx OTHR DR: Payal Barnett, DISTRICT SALES MANAGER-C Tissues: A - Duodenum, NOS B - Duodenum, NOS C - Gastric mucous membrane D - Esophageal mucous membrane Procedures: Special Stain Group II Surgery Specimen Level IV Alcian Blue/PAS (control) HEADER OPERATION: [place] [place] [facility] [place] biopsy PRE-OP DIAGNOSIS: Irritable bowel syndrome with diarrhea, celiac disease TISSUE SUBMITTED: A ? Duodenal polyp biopsy, B ? Duodenum biopsy, C ? Gastric body biopsy, D ? Distal esophagus biopsy MICROSCOPIC DIAGNOSIS A. Duodenal polyp, biopsy: Fragments of duodenal mucosa with nonspecific chronic inflammation. See comment. B. Duodenum, biopsy: Fragments of duodenal mucosa with nonspecific chronic inflammation. See comment. C. Gastric body, biopsy: Mild gastritis. See microscopic description and comment. D. Distal esophagus, biopsy: Fragments of gastroesophageal mucosa with chronic inflammation. Intestinal metaplasia (goblet cell metaplasia) not identified. See comment. SJ:caty 01/02/2022 COMMENT A & B. Focal mild blunting of villi is also noted. C. The results of immunohistochemistry for Helicobacter pylori will be reported separately ([id number]). A fragment of duodenal mucosa with chronic inflammation is also noted in the specimen. D. Alcian blue/PAS stain with matched control is used in the evaluation of the specimen. The specimen predominantly consists of gastric mucosa. Correlation with clinical, endoscopic findings and appropriate follow up are necessary. MICROSCOPIC DESCRIPTION Slides are reviewed. C. The specimen shows fragments of gastric mucosa with chronic inflammatory cell infiltrates in the lamina propria consisting of lymphocytes and plasma cells, consistent with mild chronic gastritis. GROSS DESCRIPTION A - Received in fixative is one container labeled with the patient's name and designated duodenal polyp biopsy. The specimen consists of multiple irregular fragments of light de la cruz soft tissue that in aggregate measure 0.8 x 0.5 x 0.1 cm. The specimen is totally submitted in one cassette. B - Received in fixative is one container labeled with the patient's name and designated duodenum biopsy. The specimen consists of two irregular fragments of light de la cruz soft tissue that in aggregate measure 0.6 x 0.3 x 0.1 cm. The specimen is totally submitted in one cassette. C - Received in fixative is one container labeled with the patient's name and designated gastric body biopsy. The specimen consists of two irregular fragments of light de la cruz soft tissue that in aggregate measure 0.6 x 0.6 x 0.1 cm. The specimen is totally submitted in one cassette. D - Received in fixative is one container labeled with the patient's name and designated distal esophagus biopsy. The specimen consists of multiple irregular fragments of light de la cruz soft tissue that in aggregate measure 0.9 x 0.5 x 0.1 cm. The specimen is totally submitted in one cassette. / SJ:rg 01/01/2022 TC:3 CPT: 31870 x4, 88450
--- NOTE | 2022-01-01 07:05 | HP.PCM_ITS ---
History and Physical Date of Admission: 01/01/22 66 F who presents to the office today for Evaluation of diarrhea and epigastric pain. Krystal established with this clinic 06.09.21. She was previously seen by Dr. Orosco. She has utilized immodium, Xifaxan and probiotic for diarrhea management since . Stool tested and negative for C.Difficile. 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 Following this she began having frequent diarrhea that has not subsided. Dr. Orosco recommended immodium 2 tabs TID which made her feel impacted; prevalite helpful with diarrhea symptoms but does not promote complete evacuation. Diarrhea makes her feel dehydrated and PCP orders IVF and vitamin infusions Q3W. 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 History of celiac disease diagnosed 2004, hiatal hernia, stress, anxiety, depression, anemia. Colonoscopy performed 12.30.[address] Jony Orosco finding left colon redundancy; some diverticulosis; internal hemorrhoids. Biopsies negative for colitis. Biochemical workup 06.09.21 found elevated LDH 259. ESR, CRP, SAMMY with electrophoresis, stool fats, stool calprotectin, stool ova/parasite, stool giardia, GAME, ANCA, JAMIL comprehensive all WNL. Biochemical workup Cholesterol, HDL, LDL, triglycerides, gastrin, TSH, LDH without pertinent abnormality. RBC L3.57, MCV H105, MCH H34.7, Eosinophils H7.4 Plan from last visit 08.07.21: IBS-D ? recommend biochemical workup. Does not want to use medications. Celiac ? she is stable and compliant with gluten-free diet. Reports that she is continuing to have issues with postprandial diarrhea unless she is not using prevalyte BID. If she misses a dose she has an issue the following day; if she does not eat she will not take the prevalyte. She is feeling very discouraged by this situation. She is continuing to have difficulty with sleep and she is following up with her PCP in November to follow up. ROS Const Constitutional: No fatigue, malaise, night sweats, weight change, sleep problems, abnormal sleep pattern or change in appetite ENT ENT: No difficulty swallowing, hoarseness or sore throat Cardio Cardiology: No chest pain at rest Gastro GI: No abdominal pain, belching, bloating, change in bowel habits, change in stool character, coffee ground emesis, constipation, cramping, diarrhea, heartburn, difficulty swallowing, feeling full early, excessive flatus, incontinent of stools, Vomiting blood/hematemesis, Blood in stool, loose stools, Black,tarry stools, nausea/dyspepsia, pain with swallowing, vomiting or other Musc Musculoskeletal: No joint pain Skin Skin: No yellowing of the eye or itchy eyes Neuro Neurology: No behavioral changes Psych Psychiatric: No abnormal sleep pattern, No anxiety, No behavioral changes, No change in appetite and No depression Endo Endocrine: No fatigue or weight change Aller/Imm Allergy/Immunologic: No itchy eyes Nolan/Lymp Hematologic/Lymphatic: No easy bleeding or easy bruising Exam Const General: cooperative and comfortable Nutritional Appearance: average body habitus and well nourished HENCO Head: normal to inspection Ears: hearing grossly normal bilaterally Nose: external nose normal Face and sinus: normal facial exam Mouth: oral mucosae normal Throat: posterior oropharynx normal Eyes General: appearance normal, both eyes and all related structures Neck Neck: normal visual inspection Chest Chest palpation & inspection: normal inspection of the chest and normal palpation of entire chest wall Resp Effort & Inspection: normal respiratory effort Auscultation: Bilateral: Clear to Auscultation Cardio Palpation: normal PMI Rate: regular rate Rhythm: regular rhythm GI Inspection: normal to inspection Auscultation: normal bowel sounds Percussion: normal to percussion Palpation: no hepatosplenomegaly Skin General: no rashes or lesions noted Neuro General: patient alert Extrem General: normal to inspection Psych Affect: normal affect Quality Reporting Tobacco Screening ([facility] 138) Smoking Status: Never smoker Assessment and Plan Assessment and Plan (1) Irritable bowel syndrome with diarrhea: ?Status:?Chronic ?Plan: Severe IBS associated with diarrhea.? She can only have a normal day if she is taken Prevalite scheduled.? If she misses a dose she will have worsening diarrhea and even diarrhea at night.? Typically this is a osmotic diarrhea and not a secretory diarrhea presentation.? Since she is presenting more like a secretory diarrhea and her celiac profile has been normal we will get an upper endoscopy and a capsule endoscopy.? I will also give her prescription for Viberzi 75 mcg twice a day. (2) Celiac disease: ?Status:?Chronic ?Plan: By her tissue transglutaminase and endomysial antibody she should not be having any diarrhea from celiac disease.? There is a possibility of microscopic colitis is causing her symptoms.? She is not on any nonsteroidals that would be associated with causing a flare.? More information to follow at that she undergoes upper endoscopy and capsule endoscopy. ? ? ? Medications: New eluxadoline (Viberzi) ?? must administer with a meal/food 75 mg? PO BID 60 tabs 1RF ? ? I have re-examined the patient. There are no clinical changes since date of exam.
[2022-01-01 07:25] VITALS: BP 138/79; PULSE 67; RESP 16; TEMP 36.3; O2SAT 97; BMI 25.3
[2022-01-01] MEDS: Lactated Ringers 1,000 ML 15 ML IV (07:29)
--- NOTE | 2022-01-01 07:45 | IMM_PTH ---
PATIENT: HENRY VIDES LOC: EN U#:[id number] AGE/SX: 66/F ROOM: RE01/01/[address]: Dr. Darrel Lezama DO : 1955 BED: DIS: 01/01/2022 SPEC #: [id number] RECD: 01/01/22 10:34 STATUS: GERARDO REQ #: [id number] DAVE: 01/01/22 07:[address]: Darrel Lezama DEPT: IMMUNOHISTOCHEMISTRY RECD BY: Tiera Quiroz ENTERED: 01/01/22 10:35 SP TYPE: IMMUNO OTHR DR: Payal Barnett, CISTERN ROOM WORKING SUPERVISOR-C Tissues: C - Stomach, NOS Procedures: H Pylori (initial) PHYSICIAN & INSTITUTION [place] [id number] SPECIMEN INFORMATION: Tissue Source: C ? Gastric body biopsy Clinical Info: IBS with diarrhea Specimen Number: [id number] Danii CPT code: 27878 METHODOLOGY: Deparaffinized sections of prefer/formalin-fixed tissue or PAP/DQ stained slides are incubated with monoclonal/polyclonal antibodies/oligonucleotide probes. Localization is made via biotin free immunoperoxidase method. Appropriate controls are performed and reacted as expected. Results on target cell population are indicated in the following table: RESULTS: ANTIBODY / CLONE RESULT Block C H Pylori (polyclonal) negative These tests were developed and their performance characteristics determined by [facility]. They may not have been cleared or approved by the U.S. Food and Drug Administration. The FDA has determined that such clearance or approval is not necessary. The above immunohistochemical/dualISH markers are ordered and reviewed by the Pathologist. INTERPRETATION: C. Gastric body, biopsy: Negative for Helicobacter pylori organisms. SJ:caty 01/02/2022
[2022-01-01 07:54] VITALS: BP 113/70; BP 138/79; PULSE 89; RESP 14; TEMP 36.6; O2SAT 97
--- NOTE | 2022-01-01 07:57 | OP.EGD_ITS ---
Patient Name: Krystal Carver Procedure Date: 01/01/2022 7:35 AM Date of : 1955 Age: 66 Procedure: Upper GI endoscopy Indications: Epigastric abdominal pain, Functional Dyspepsia, Heartburn, Failure to respond to medical treatment Providers: Darrel Lezama DO Referring MD: Fadi Doll Medicines: Monitored Anesthesia Care Patient Profile: This is a 66 year old female. Refer to note in patient chart for documentation of history and physical. Patient has symptoms of chronic epigastric abdominal pain, chronic dyspepsia and chronic nausea. Complications: No immediate complications. Procedure: Pre-Anesthesia Assessment: - Prior to the procedure, a History and Physical was performed, and patient medications and allergies were reviewed. The risks and benefits of the procedure and the sedation options and risks were discussed with the patient. All questions were answered and informed consent was obtained. Patient identification and proposed procedure were verified by the physician in the pre-procedure area. Mental Status Examination: alert and oriented. Airway Examination: normal oropharyngeal airway and neck mobility. Respiratory Examination: clear to auscultation. CV Examination: normal. Prophylactic Antibiotics: The patient does not require prophylactic antibiotics. Prior Anticoagulants: The patient has taken no previous anticoagulant or antiplatelet agents. ASA Grade Assessment: II - A patient with mild systemic disease. After reviewing the risks and benefits, the patient was deemed in satisfactory condition to undergo the procedure. The anesthesia plan was to use monitored anesthesia care (MAC). Immediately prior to administration of medications, the patient was re-assessed for adequacy to receive sedatives. The heart rate, respiratory rate, oxygen saturations, blood pressure, adequacy of pulmonary ventilation, and response to care were monitored throughout the procedure. The physical status of the patient was re-assessed after the procedure. After obtaining informed consent, the endoscope was passed under direct vision. Throughout the procedure, the patient's blood pressure, pulse, and oxygen saturations were monitored continuously. The Endoscope was introduced through the mouth, and advanced to the second part of duodenum. The upper GI endoscopy was accomplished without difficulty. The patient tolerated the procedure well. Scope In: 7:40:48 AM Scope Out: 7:48:27 AM Total Procedure Duration Time 0 hours 7 minutes 39 seconds Findings: LA Grade A (one or more mucosal breaks less than 5 mm, not extending between tops of 2 mucosal folds) esophagitis with no bleeding was found 36 to 37 cm from the incisors. Biopsies were taken with a cold forceps for histology. Verification of patient identification for the specimen was done. Estimated blood loss was minimal. A small hiatal hernia was present. Patchy mildly erythematous mucosa without bleeding was found in the gastric antrum. Biopsies were taken with a cold forceps for histology. Verification of patient identification for the specimen was done. Estimated blood loss was minimal. A single 5 mm sessile polyp with no bleeding was found in the duodenal bulb. The polyp was removed with a cold snare. Resection and retrieval were complete. Verification of patient identification for the specimen was done. Estimated blood loss was minimal. No gross lesions were noted in the second portion of the duodenum. Biopsies were taken with a cold forceps for histology. Verification of patient identification for the specimen was done. Estimated blood loss was minimal. Impression: - LA Grade A reflux esophagitis. Biopsied. - Small hiatal hernia. - Erythematous mucosa in the antrum thought to be secondary to bile reflux. The area was biopsied. - A single duodenal polyp. Resected and retrieved. - No gross lesions in the second portion of the duodenum. There was some inflammation in the small bowel thought to be secondary to bile versus celiac disease. The area was biopsied. Recommendation: - Discharge patient to home. - Resume previous diet. - Continue present medications. - Await pathology results. Procedure Code(s): --- Professional --- 60162, Esophagogastroduodenoscopy, flexible, transoral; with removal of tumor(s), polyp(s), or other lesion(s) by snare technique 69497, 59,51, Esophagogastroduodenoscopy, flexible, transoral; with biopsy, single or multiple CPT copyright 2017 [employer]. All rights reserved. The codes documented in this report are preliminary and upon certified coder review may be revised to meet current compliance requirements. Darrel Lezama DO 01/01/2022 7:57:03 AM This report has been signed electronically. Number of Addenda: 0 Note Initiated On: 01/01/2022 7:35 AM
--- NOTE | 2022-01-01 07:57 | OP.CCLET_ITS ---
01/01/2022 Fadi Doll Re : Upper GI endoscopy procedure for Krystal Carver Dear Anibal This procedure was performed on Saturday, January 01, 2022. My impressions and recommendations are as follows: Impressions : - LA Grade A reflux esophagitis. Biopsied. - Small hiatal hernia. - Erythematous mucosa in the antrum thought to be secondary to bile reflux. The area was biopsied. - A single duodenal polyp. Resected and retrieved. - No gross lesions in the second portion of the duodenum. There was some inflammation in the small bowel thought to be secondary to bile versus celiac disease. The area was biopsied. Recommendations : - Discharge patient to home. - Resume previous diet. - Continue present medications. - Await pathology results. My findings are described in the full procedure note, which is enclosed. If I can be of further assistance, please feel free to contact me at . Sincerely, Darrel Lezama, 01/01/2022 7:57:03 AM This report has been signed electronically.
[2022-01-01 08:00] VITALS: BP 111/76; BP 138/79; PULSE 85; RESP 16; O2SAT 98
[2022-01-01 08:05] VITALS: BP 120/90; BP 138/79; PULSE 84; RESP 16; O2SAT 98
[2022-01-01 08:10] VITALS: BP 118/89; BP 138/79; PULSE 81; RESP 16; TEMP 36.4; O2SAT 99
[2022-01-01 08:48] VITALS: BP 138/79
== END 2022-01-01 08:49 | disposition home or self-care (01) ==
LOC: EN 06:35 → AC 06:36
PROVIDERS: PCP Nurse Practitioner Family; Referring Provider Nurse Practitioner Family; Visit Provider Internal Medicine Gastroenterology
PROC: 0DJ08ZZ Inspection of Upper Intestinal Tract, Via Natural or Artificial Opening Endoscopic (ICD-10-PCS; CPT 43235; principal; 2022-01-01 07:40)
DX: K21.00 Gastro-esophageal reflux disease with esophagitis, without bleeding (principal); K44.9 Diaphragmatic hernia without obstruction or gangrene; K29.50 Unspecified chronic gastritis without bleeding; K31.7 Polyp of stomach and duodenum; K31.89 Other diseases of stomach and duodenum; K58.0 Irritable bowel syndrome with diarrhea; F41.9 Anxiety disorder, unspecified; I10 Essential (primary) hypertension; Z79.899 Other long term (current) drug therapy
CPT/HCPCS: 43239; 43251; 88305; 88313; 88342; J7120; J2405

== ENCOUNTER → 2022-03-07 | Outpatient (CLI) | payer BC, SELFPAY ==
[2022-03-10 21:02] LABS: Pancreatic Elastase, Fecal 128 (>200)
== END | disposition home or self-care (01) ==
LOC: LAB 14:37
PROVIDERS: PCP Nurse Practitioner Family; Visit Provider Internal Medicine Gastroenterology
DX: R19.7 Diarrhea, unspecified (principal); R10.13 Epigastric pain
CPT/HCPCS: 82653

== ENCOUNTER → 2022-03-08 | Outpatient (CLI) | payer BC, SELFPAY ==
[2022-03-08 14:52] LABS: Free T3 2.5 pg/mL (2.18-3.98); Hemoglobin A1c 5.8 % (3.8-5.6); T4 Free Direct 0.92 ng/dL (0.76-1.46); Thyroid Stim Hormone (TSH) 2.47 uIU/mL (0.358-3.74)
== END | disposition home or self-care (01) ==
LOC: LAB 13:57
PROVIDERS: PCP Nurse Practitioner Family; Visit Provider Internal Medicine Gastroenterology
DX: K31.84 Gastroparesis (principal)
CPT/HCPCS: 36415; 83036; 84439; 84443; 84481

== ENCOUNTER → 2022-11-14 | Outpatient (CLI) | payer BC, SELFPAY ==
--- NOTE | 2022-11-14 08:52 | NM_ITS ---
CLINICAL: 67-year-old female with history of clinical gastroparesis. SOLID PHASE 99m Tc SULFUR COLLOID GASTRIC EMPTYING STUDY COMPARISON: Previous semisolid phase gastric emptying examination dated 12/21/2021. The patient was administered 1.1 mCi of 99m Tc sulfur colloid mixed with egg and consumed per os. Image acquisitions in the anterior-posterior projections were obtained for 227 minutes following meal consumption. There is prompt visualization of the stomach. There is no gastroesophageal reflux identified. First order kinetics are maintained throughout the duration of the acquisitions. The T ? raw data emptying was calculated to be 84.0 minutes, (Normal 65-110 minutes). 99 % emptying and 1.0 % retention are defined at 227 minutes post meal ingestion. NM/Gastric Emptying Study IMPRESSION: 1. NORMAL 99m Tc sulfur colloid solid phase gastric emptying imaging examination. A. There is normal and preserved solid phase gastric emptying compared to normal controls with maintained first order kinetics throughout all components of the examination. (Jayden et al, Gastroenterology 77: 75, 1979 Loco et al, Semin Nucl Med 12: 116, 1980 Asa et al, SNM Procedure Guidelines Adult Solid Meal Gastric Emptying Study 3.0 [email or web address]). B. Greater than 90% emptying of the initial gastric contents at 4 hours post dose is consistent with normal solid phase gastric emptying which correlates with the results of the T ? emptying calculation. (Gerardo et al, J Nucl Med 48: 568, 2007). Electronically Signed: Todd Hou, at 21:03 EDT ,
== END | disposition home or self-care (01) ==
LOC: NM 08:51
PROVIDERS: PCP Nurse Practitioner Family; Referring Provider Nurse Practitioner Family; Visit Provider Nurse Practitioner Family
DX: J98.6 Disorders of diaphragm (principal)
CPT/HCPCS: 78264; A9541

== ENCOUNTER → 2022-12-27 | Outpatient (CLI) | payer BC, SELFPAY ==
--- NOTE | 2022-12-27 13:06 | BI_ITS ---
MAMMOGRAPHY - BILATERAL SCREENING REASON FOR EXAM: Female, 67 years old. Routine annual screening examination. PERTINENT HISTORY: Non-contributory. Bilateral breast implants. TECHNIQUE: Digital bilateral breast sada (3D mammographic acquisition) in the CC and MLO projections. 2-D mediolateral oblique (MLO) and craniocaudad (CC) views of both breasts were obtained. CAD: Full Field Digital Mammography with Computer Added Detection was performed. COMPARISON: Comparison is made with prior study December 19, 2021 and December 08, 2019. FINDINGS: Breast Composition: The breasts are heterogeneously dense, which may obscure small masses. There are no dominant masses or suspicious calcifications. Stable appearance of the bilateral breast implants. No other significant abnormalities are identified. There has been no significant change since the prior study. BI/SCRN MAMM (CAD)W/SADA BILAT IMPRESSION: Stable bilateral screening mammogram. Yearly follow-up mammogram recommended. (A) ASSESSMENT CATEGORY: BIRADS Category 2: Benign. A letter regarding these results will be sent to the patient by the facility within 30 days. Approximately 10% of breast cancers are not detected by mammography. A normal mammogram should not delay biopsy of a clinically suspicious abnormality. [id number] Electronically Signed: Emerson Rico MD at 14:29 EDT ,
== END | disposition home or self-care (01) ==
LOC: OPBI 13:05
PROVIDERS: PCP Nurse Practitioner Family; Referring Provider Nurse Practitioner Family; Visit Provider Nurse Practitioner Family
DX: Z12.31 Encounter for screening mammogram for malignant neoplasm of breast (principal); Z98.82 Breast implant status
CPT/HCPCS: 77063; 77067

== ENCOUNTER → 2023-01-31 | Outpatient (CLI) | payer BC, SELFPAY ==
--- NOTE | 2023-01-31 12:59 | US_ITS ---
STUDY: ULTRASOUND OF THE FEMALE PELVIS - COMPLETE REASON FOR EXAM: Female, 67 years old. Pelvic pain in female LMP: Unknown. TECHNIQUE: Transabdominal and Transvaginal TECHNICAL QUALITY: Adequate. COMPARISON: July 25, 2020 CT pelvis MRI pelvis November 17, 2020 FINDINGS: The uterus is retroverted and is in a midline position. The uterus measures 0.8 x 3.5 x 4.7 cm. Normal uterine cervix. The endometrium measures 1.7 mm in thickness, and is hyperechoic. There is no demonstrated endometrial mass. There is an echogenic appearing well-circumscribed mass within the fundus of the uterus measuring 9.5 x 9.7 cm. There is a visualized partially calcified mass shadowing measuring 1.7 x 1.4 cm. There is a focal calcification measuring 4.4 mm. There is visualized calcification and measures 1.4 x 0.7 cm no shadowing. I.U.D. - The patient does not have an I.U.D. The right ovary is visualized. The right ovary measures 2.4 x 0.99 x 1.2 cm. There is no right ovarian cyst or ovarian mass. There is no visualized right adnexal mass or complex lesion. There is normal arterial and normal venous vascularity. The left ovary not visualized likely due to overlying bowel gas. There is no fluid in the cul-de-sac. The pre void volume of the bladder was 201.85 ml. Polycystic ovary disease: No. US/Transvaginal Non- IMPRESSION: Retroflexed uterus, Multifocal fibroids similar to the prior studies. Normal-appearing right ovary without torsion. The left ovary is nonvisualized. Electronically Signed: Claire uCrrie MD at 15:54 EST ,
== END | disposition home or self-care (01) ==
LOC: US 12:56
PROVIDERS: PCP Nurse Practitioner Family; Referring Provider Nurse Practitioner Family; Visit Provider Nurse Practitioner Family
DX: R10.2 Pelvic and perineal pain (principal)
CPT/HCPCS: 76830; 76856

== ENCOUNTER → 2023-05-17 | Outpatient (CLI) | payer BC, SELFPAY ==
--- NOTE | 2023-05-17 12:22 | RAD_ITS ---
HISTORY: back pain. TECHNIQUE: XR Spine Lumbar 2 or 3 Views. COMPARISON: None. FINDINGS: VERTEBRAE: Vertebral body heights preserved. Degenerative changes of the posterior elements. Transitional lumbosacral anatomy S1 designated as a transitional lumbosacral vertebra. ALIGNMENT: No significant anterior or posterior subluxation. INTERVERTEBRAL DISCS: Degenerative changes with mild intervertebral disc space narrowing of L1-2 and L5-1. RAD/Lumbar Spine 2 or 3 Views IMPRESSION: No acute fracture or dislocation identified in the lumbar spine. Mild degenerative change. Electronically Signed: Leigh Bolanos MD at 11:57 EST ,
[2023-05-17 12:43] LABS: Erythrocyte Sedimentation Rate 10 mm/hr (0-30)
[2023-05-17 12:45] LABS: Absolute Lymphocyte Count 1.09 X10^3/uL (0.83-4.51); Absolute Neutrophil Count 1.7 X10^3/uL (2.0-7.7); Basophil# 0.05 X10^3/uL; Basophil% 1.3 % (0-1); Eosinophil# 0.33 X10^3/uL; Eosinophils% 8.4 % (0-5); Hematocrit 42.2 % (37-47); Hemoglobin 13.6 g/dL (12.0-15.0); Lymphocyte # 1.09 X10^3/ul (0.83-4.51); Lymphocyte % 27.9 % (19-41); Mean Corp Hgb Conc 32.2 g/dL (32-36); Mean Corpuscular Hgb 32.9 pg (27.0-32.0); Mean Corpuscular Volume 101.9 fL (81-99); Mean Platelet Vol. 10.7 fl (6.2-12.0); Monocyte# 0.78 X10^3/uL; Monocyte% 19.9 % (0-10); NRBC Flagged by Analyzer 0 % (0-5); Neutrophil # 1.65 X10^3/uL (2.7-7.7); Neutrophil % 42.2 % (47-70); Platelet Count 239 K/mm3 (150-450); RBC Distribution Width CV 13.6 % (11.6-14.6); RBC Distribution Width SD 51.5 fl (35.1-43.9); Red Blood Count 4.14 M/mm3 (4.2-5.4); White Blood Count 3.9 K/mm3 (4.4-11.0)
[2023-05-17 13:03] LABS: Vitamin B12 1331 pg/mL (211-911); Vitamin D,25 Hydroxy 46.7 ng/mL
[2023-05-17 13:44] LABS: AST(SGOT) 37 U/L (15-37); Alanine Aminotransfer ALT/SGPT 51 U/L (13-56); Albumin, Serum 3.7 g/dL (3.2-5.0); Alkaline Phosphatase 98 U/L (45-117); Anion Gap 2 (5-15); BUN 22 mg/dL (7-18); BUN/Creat Ratio 27.3 RATIO (10-20); CRP < 2.90 mg/L (0.0-3.0); Calcium,Total 9.1 mg/dL (8.5-10.1); Chloride 110 mmol/L (98-107); EST Glomerular Filtration Rate 75 mL/min (>60); Est Glom Filt Rate - Afr Amer 91 mL/min (>60); Globulin 3.6 g/dL (2.2-4.2); Glucose 93 mg/dL (74-106); LDH 237 U/L (84-246); Protein, Total 7.3 g/dL (6.4-8.2); Sodium Level 140 mmol/L (136-145); Triglycerides 43 mg/dL
[2023-05-17 14:07] LABS: Hemoglobin A1c 5.8 % (3.8-5.6)
[2023-05-22 11:09] LABS: Beef <0.10 kU/L (Class 0); Chocolate <0.10 kU/L (Class 0); Codfish <0.10 kU/L (Class 0); Corn <0.10 kU/L (Class 0); Egg, Whole <0.10 kU/L (Class 0); Milk (Cow) <0.10 kU/L (Class 0); Mussels <0.10 kU/L (Class 0); Peanut <0.10 kU/L (Class 0); Pork <0.10 kU/L (Class 0); Salmon <0.10 kU/L (Class 0); Shrimp <0.10 kU/L (Class 0); Soybean <0.10 kU/L (Class 0); Tuna <0.10 kU/L (Class 0); Wheat <0.10 kU/L (Class 0)
[2023-05-23 15:08] LABS: ACCA 56 units (0-90); ALCA 4 units (0-60); AMCA 19 units (0-100); Albumin 3.8 g/dL (2.9-4.4); Alpha-1-Globulins 0.2 g/dL (0.0-0.4); Alpha-2-Globulins 0.6 g/dL (0.4-1.0); Carbohydrate AG 19-9 59 U/mL (0-35); Chromogranin A 75.9 ng/mL (0.0-101.8); Copper, Serum or Plasma 101 ug/dL (80-158); Gamma Globulin 1.4 g/dL (0.4-1.8); IgG, Quant 1526 mg/dL (586-1602); Immunoglobulin A 137 mg/dL (87-352); Immunoglobulin G, Subclass 1 1161 mg/dL (248-810); Immunoglobulin G, Subclass 2 243 mg/dL (130-555); Immunoglobulin G, Subclass 3 37 mg/dL (15-102); Immunoglobulin G, Subclass 4 87 mg/dL (2-96); Immunoglobulin M 50 mg/dL (26-217); PROEL- TOTAL PROTEIN 6.8 g/dL (6.0-8.5); gASCA 9 units (0-50)
== END | disposition home or self-care (01) ==
LOC: LAB 11:49
PROVIDERS: PCP Nurse Practitioner Family; Referring Provider Internal Medicine Gastroenterology; Visit Provider Internal Medicine Gastroenterology
DX: K44.9 Diaphragmatic hernia without obstruction or gangrene (principal); K86.81 Exocrine pancreatic insufficiency; K58.0 Irritable bowel syndrome with diarrhea; K90.0 Celiac disease
CPT/HCPCS: 36415; 72100; 80053; 82306; 82525; 82607; 82652; 82746; 82784; 82787; 83036; 83516; 83615; 84165; 84478; 85025; 85652; 86003; 86005; 86036; 86140; 86301; 86316; 86334; 86671

== ENCOUNTER → 2023-05-24 | Outpatient (CLI) | payer BC, SELFPAY ==
[2023-05-30 12:09] LABS: Giardia Lamblia, Stool EIA Negative (Negative); Pancreatic Elastase, Fecal 86 (>200)
== END | disposition home or self-care (01) ==
LOC: LABSPEC 14:15
PROVIDERS: PCP Nurse Practitioner Family; Referring Provider Internal Medicine Gastroenterology; Visit Provider Internal Medicine Gastroenterology
DX: K58.9 Irritable bowel syndrome, unspecified (principal); K44.9 Diaphragmatic hernia without obstruction or gangrene; K86.81 Exocrine pancreatic insufficiency
CPT/HCPCS: 82653; 83630; 87177; 87209; 87329

== ENCOUNTER → 2023-06-20 | Outpatient (CLI) | payer BC, SELFPAY ==
--- NOTE | 2023-06-20 08:49 | US_ITS ---
STUDY: ABDOMINAL ULTRASOUND - RIGHT UPPER QUADRANT; ELASTOGRAPHY REASON FOR VISIT: Female, 68 years old. Fatty liver. TECHNIQUE: Ultrasound evaluation of the right upper quadrant was performed with real-time and static bain-scale imaging. Point quantification shear wave elastography was performed ([employer]). TECHNICAL QUALITY: Adequate. COMPARISON: None. FINDINGS: Liver: The liver measures 14.7 cm. There is normal echogenicity of the liver. The bile ducts are within normal limits. There is hepatic color flow. The direction of portal flow is hepatopetal. There is no demonstrated mass lesion. Median liver stiffness measured 5 kPa. Gallbladder: The patient is status post cholecystectomy. Common Bile Duct (C.B.D.): The common bile duct measures 6.9 mm. Pancreas: There is normal echogenicity of the visualized pancreas. There is no demonstrated pancreatic mass or cyst. Right Kidney: Normal size of the right kidney. The right kidney measures 8.8 cm x 5 cm x 3.1 cm. There is thinning of the renal cortex. The right cortex measures 0.8 cm. There is no demonstrated renal mass or cyst. There is no right hydronephrosis. US/ABD Limited w/ Elastography IMPRESSION: 1. Liver stiffness measures 5 kPa compatible with F0-F1 (Normal to mild liver fibrosis) Metavir score. Electronically Signed: Emerson Rico MD at 10:47 EDT ,
== END | disposition home or self-care (01) ==
PROVIDERS: PCP Nurse Practitioner Family; Referring Provider Internal Medicine Gastroenterology; Visit Provider Internal Medicine Gastroenterology
DX: K44.9 Diaphragmatic hernia without obstruction or gangrene (principal); K86.81 Exocrine pancreatic insufficiency
CPT/HCPCS: 76705; 76981

== ENCOUNTER → 2023-08-08 | Outpatient (CLI) | payer BC, SELFPAY ==
--- NOTE | 2023-08-08 12:55 | RAD_ITS ---
INDICATION: hiatal hernia EXAMINATION/TECHNIQUE: X-RAY - XR Abdomen 1 View COMPARISON: None FINDINGS: BOWEL GAS PATTERN: Non-obstructive. No bowel or stomach distention. FREE AIR: Not assessed on a single supine view. ORGANOMEGALY: Not seen. CALCIFICATIONS: Pelvic midline calcifications consistent with calcified fibroids. LOWER CHEST: No acute pathology. BONES AND SOFT TISSUES: No acute pathology. RAD/Abdomen Single View IMPRESSION: Non-obstructive bowel gas pattern. Electronically Signed: Luciano Colindres MD at 23:37 EDT ,
[2023-08-08 13:34] LABS: Absolute Lymphocyte Count 1.23 X10^3/uL (0.83-4.51); Basophil# 0.03 X10^3/uL; Basophil% 0.6 % (0-1); Eosinophil# 0.39 X10^3/uL; Eosinophils% 8.4 % (0-5); Hematocrit 38.8 % (37-47); Hemoglobin 12.6 g/dL (12.0-15.0); Lymphocyte # 1.23 X10^3/ul (0.83-4.51); Lymphocyte % 26.6 % (19-41); Mean Corp Hgb Conc 32.5 g/dL (32-36); Mean Corpuscular Hgb 33.7 pg (27.0-32.0); Mean Corpuscular Volume 103.7 fL (81-99); Mean Platelet Vol. 10.6 fl (6.2-12.0); Monocyte# 0.99 X10^3/uL; Monocyte% 21.4 % (0-10); NRBC Flagged by Analyzer 0 % (0-5); Neutrophil # 1.96 X10^3/uL (2.7-7.7); Neutrophil % 42.6 % (47-70); Platelet Count 232 K/mm3 (150-450); RBC Distribution Width CV 14.1 % (11.6-14.6); RBC Distribution Width SD 53.7 fl (35.1-43.9); Red Blood Count 3.74 M/mm3 (4.2-5.4); White Blood Count 4.6 K/mm3 (4.4-11.0)
== END | disposition home or self-care (01) ==
LOC: LAB 12:27
PROVIDERS: PCP Nurse Practitioner Family; Referring Provider Internal Medicine Gastroenterology; Visit Provider Internal Medicine Gastroenterology
DX: K44.9 Diaphragmatic hernia without obstruction or gangrene (principal); R97.8 Other abnormal tumor markers
CPT/HCPCS: 36415; 74018; 85025; 86301

== ENCOUNTER 2023-10-09 05:50 | Day surgery (SDC) | payer BC, SELFPAY ==
[2023-10-09] VITALS (7 sets, daily range): BP systolic 110–143; BP diastolic 71–87; PULSE 16–87; RESP 14–16; TEMP 36.1–36.8; O2SAT 96–100; BMI 25.0
[2023-10-09] MEDS: Lactated Ringers 1,000 ML 15 ML IV (06:35)
--- NOTE | 2023-10-09 07:00 | IMM_PTH ---
PATIENT: HENRY VIDES LOC: EN U#:[id number] AGE/SX: 68/F ROOM: RE10/09/[address]: Dr. Darrel Lezama DO : 1955 BED: DIS: 10/09/2023 SPEC #: [id number] RECD: 10/09/23 13:41 STATUS: GERARDO REQ #: [id number] DAVE: 10/09/23 07:[address]: Darrel Lezama DEPT: IMMUNOHISTOCHEMISTRY RECD BY: Pedro Gonzalez ENTERED: 10/09/23 13:42 SP TYPE: IMMUNO OTHR DR: Payal Barnett, CHILDBIRTH AND INFANT CARE TEACHER-C Tissues: C - Gastric mucous membrane Procedures: H Pylori (initial) PHYSICIAN & INSTITUTION [place] [id number] SPECIMEN INFORMATION: Tissue Source: C- Gastric antrum Clinical Info: Exocrine pancreatic insufficiency, Hiatal hernia, irritable bowel syndrome with diarrhea, Celiac disease, dysphagia Specimen Number: [id number] CPT code: 89129 METHODOLOGY: Deparaffinized sections of prefer/formalin-fixed tissue or PAP/DQ stained slides are incubated with monoclonal/polyclonal antibodies/oligonucleotide probes. Localization is made via biotin free immunoperoxidase method. Appropriate controls are performed and reacted as expected. Results on target cell population are indicated in the following table: RESULTS: ANTIBODY / CLONE RESULT Block C H Pylori (polyclonal) negative These tests were developed and their performance characteristics determined by [facility]. They may not have been cleared or approved by the U.S. Food and Drug Administration. The FDA has determined that such clearance or approval is not necessary. The above immunohistochemical/dualISH markers are ordered and reviewed by the Pathologist. INTERPRETATION: C. Gastric antrum, biopsy: Negative for Helicobacter pylori organisms. THIERRY/ 10/10/2023
--- NOTE | 2023-10-09 07:00 | EGD_PTH ---
[id number] LOC: EN U#:[id number] AGE/SX: 68/F ROOM: RE10/09/[address]: Dr. Darrel Lezama DO : 1955 BED: DIS: 10/09/2023 SPEC #: [id number] RECD: 10/09/23 13:12 STATUS: GERARDO QUIQUE #: [id number] DAVE: 10/09/23 07:[address]: Darrel Lezama DEPT: SURGICAL PATHOLOGY RECD BY: Litzy Montejo ENTERED: 10/09/23 13:47 SP TYPE: EGD BIOPSY OT DR: Payal Barnett, ELECTRIC POWER MACHINE OPERATOR-C Tissues: A - Duodenum, NOS B - Duodenum, NOS C - Gastric mucous membrane D - Esophagus, NOS Procedures: Special Stain Group I Surgery Specimen Level IV Alcian Blue/PAS (control) HEADER OPERATION: EGD with biopsies PRE-OP DIAGNOSIS: Exocrine pancreatic insufficeiency, Hiatal hernia, Irritable bowel syndrome with diarrhea, Celiac disease TISSUE SUBMITTED: A- Duodenum biopsy, B- Duodenal bulb biopsy, C- Gastric antrum, D- Distal esophagus biopsy MICROSCOPIC DIAGNOSIS A. Duodenum, biopsy: Fragments of duodenal mucosa with extensive gastric metaplasia, congestion, hemorrhage and moderate chronic inflammation. B. Duodenal bulb, biopsy: A fragment of duodenal mucosa with mild congestion. C. Gastric antrum, biopsy: Mild gastritis. See microscopic description and comment. D. Distal esophagus, biopsy: Fragments of gastric mucosa with congestion and chronic inflammation. Intestinal metaplasia (goblet cell metaplasia) not identified. See comment. /mr 10/10/2023 COMMENT B. The results of immunohistochemistry for Helicobacter pylori will be reported separately ([id number]). D. Alcian blue/PAS stain with matched control is used in the evaluation of the specimen. MICROSCOPIC DESCRIPTION Slides are reviewed. C. The specimen shows fragments of gastric mucosa with chronic inflammatory cell infiltrates in the lamina propria consisting of lymphocytes and plasma cells, consistent with mild chronic gastritis and focal mucosal congestion is also noted. GROSS DESCRIPTION A. Received in fixative is one container labeled with the patient's name and designated Duodenal biopsy. The specimen consists of multiple irregular fragments of light de la cruz soft tissue that in aggregate measure 0.8 x 0.4 x 0.1 cm. The specimen is totally submitted in one cassette. B. Received in fixative is one container labeled with the patient's name and designated Duodenal bulb biopsy. The specimen consists of one irregular fragment of light de la cruz soft tissue that measures 0.4 x 0.3 x 0.1 cm. The specimen is totally submitted in one cassette. C. Received in fixative is one container labeled with the patient's name and designated Gastric antrum. The specimen consists of two irregular fragments of light de la cruz soft tissue that in aggregate measure 0.8 x 0.3 x 0.1 cm. The specimen is totally submitted in one cassette. D. Received in fixative is one container labeled with the patient's name and designated Distal esophagus biopsy. The specimen consists of two irregular fragments of light de la cruz soft tissue that in aggregate measure 0.6 x 0.3 x 0.1 cm. The specimen is totally submitted in one cassette. Naheed 10/09/2023 TC:3 CPT:61181p9,64984
--- NOTE | 2023-10-09 07:10 | PCM.HP.BLA ---
History and Physical Date of Admission: 10/09/23 KRYSTAL VIDES, is a 68 F who presents to the office today for follow up. GI Dr. Orosco previously established for diarrhea management since . Attempted immodium (constipated), Cholestyramine (helpful with loose stools but without complete evacuation), Xifaxan and probiotic. ? Stool testing C.difficile WNL. Colonoscopy 12.30.[address] Jony Orosco left colon redundancy; some diverticulosis; internal hemorrhoids. Biopsies negative for colitis. 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 EGD 08.26.20 LA Grade A esophagitis; large hiatal hernia; gastritis; 5mmsessile adenoma polyp duodenum; nodular duodenal bulb. H.pylori negative. ? Operation 09.07.20 fundoplication *BGI established 06.09.21. Diarrhea makes her feel dehydrated and PCP orders IVF and vitamin infusions Q3W. 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 History of celiac disease diagnosed 2004, hiatal hernia, stress, anxiety, depression, anemia. Biochemical elevated LDH 259. ESR, CRP, SAMMY with electrophoresis, stool fats, stool calprotectin, stool ova/parasite, stool giardia, GAME, ANCA, JAMIL comprehensive all WNL. OV 5.16.22 Since last visit she has had no changes. Continues with Prevalite BID or she has diarrhea. Has not noted a difference since end of doxycycline. Feels she has the same amount of bowel movements with the Prevalite with formed movements without identifiable trigger. Feels she is tired and weak, she received vitamin infusions through her PCP and feels this is helpful. Biochemical Cholesterol, HDL, LDL, triglycerides, gastrin, TSH, LDH without pertinent abnormality. RBC L3.57, MCV H105, MCH H34.7, Eosinophils H7.4 OV 8.2.22 continuing to have issues with postprandial diarrhea unless she is not using prevalyte BID. If she misses a dose she has an issue the following day; if she does not eat she will not take the prevalyte. She is feeling very discouraged by this situation. She is continuing to have difficulty with sleep and she is following up with her PCP in November to follow up. Capsule endoscopy 11.07.21 with capsule not leaving stomach during recording. Recommend KUB to ensure clearance and gastric emptying study. KUB 11.13.21 without evidence of retained endoscopy camera. Gastric emptying study 12.21.21 102.77minutes (normal 12-56). Recommend A1c, T3, T4, TSH. Krystal wanted to pursue digestive enzymes rather than reglan r/t SE concerns. Biochemical workup with PCP Retic, Vid D25, TIBC, folates, CBC, CMP without pertinent abnormality. RET-HE H36.5, iron H183, Vit B12 H2000, ferritin H256 EGD 01.01.22 LA Grade A reflux esophagitis; small hiatal hernia; erythematous mucosa (gastritis) likely secondary to bile reflux; single duodenal polyp; some small bowel inflammation secondary to bile versus celiac disease. HPylori negative. OV 01.16.22 with continued nausea start Creon. ? Biochemical workup A1c H5.8, elastase L128. TSH, T3, T4 WNL. OV 04.09.22 Doing well overall. She was taking Creon 1 with snacks and two with meals. She contacted office a couple weeks ago and was instructed to increase Creon to 1-2 with snacks and 2-3 with meals; this was done recently and she has noticed an improvement. Questions regarding A1c and instructed to discuss further workup with PCP. Would like to have her breast implants removed and from a GI perspective this is fine. Has concern her hiatal hernia is worse. Change to higher dose Zenpep rather than Creon. Contact 05.08.22 to change from cholestyramine to colestipol. OV 7..24 pt reports that she is taking Imodium daily and this prevents her from having urgent diarrhea, she states she will go 2-3 days without a bm; denies blood in the stool. Pt reports that in the last 6 months she has developed difficulty swallowing, pt reports that anytime she eats she feels like the food is getting stuck in her throat. ROS Const Constitutional: No fatigue, fever(s) or weight change ENT ENT: Positive for difficulty swallowing Gastro GI: Positive for abdominal pain, bloating, diarrhea, difficulty swallowing and excessive flatus; No belching, change in bowel habits, change in stool character, coffee ground emesis, constipation, cramping, heartburn, feeling full early, incontinent of stools, Vomiting blood/hematemesis, Blood in stool, loose stools, Black,tarry stools, nausea/dyspepsia, pain with swallowing, vomiting or other Musc Musculoskeletal: Positive for back pain and stiffness; No joint pain Skin Skin: No yellowing of the eye or itchy eyes Psych Psychiatric: Positive for anxiety and No depression Endo Endocrine: No fatigue or weight change Aller/Imm Allergy/Immunologic: No itchy eyes Nolan/Lymp Hematologic/Lymphatic: Positive for easy bruising; No easy bleeding Exam Const General: cooperative and comfortable Nutritional Appearance: average body habitus and well nourished [facility] Head: normal to inspection Ears: hearing grossly normal bilaterally Nose: external nose normal Face and sinus: normal facial exam Mouth: oral mucosae normal Throat: posterior oropharynx normal Eyes General: appearance normal, both eyes and all related structures Neck Neck: normal visual inspection Chest Chest palpation & inspection: normal inspection of the chest and normal palpation of entire chest wall Resp Effort & Inspection: normal respiratory effort Auscultation: Bilateral: Clear to Auscultation Cardio Palpation: normal PMI Rate: regular rate Rhythm: regular rhythm GI Inspection: normal to inspection Auscultation: normal bowel sounds Percussion: normal to percussion Palpation: no hepatosplenomegaly Skin General: no rashes or lesions noted Neuro General: patient alert Extrem General: normal to inspection Psych Affect: normal affect Assessment and Plan Assessment and Plan (1) Exocrine pancreatic insufficiency: Status: Chronic Plan: Continue pancreatic enzymes at a higher dose. We may have to switch from Creon to Zenpep. (2) Hiatal hernia: Status: Chronic Plan: I would not at this time. She has a very small hernia and I do not think it is anything mentioned. I would recommend to continue current management and she needs a further work-up that she will need a gastric emptying study upper GI with small bowel follow-through. (3) Irritable bowel syndrome with diarrhea: Status: Chronic Plan: Severe IBS associated with diarrhea. She can only have a normal day if she is taken Prevalite scheduled. If she misses a dose she will have worsening diarrhea and even diarrhea at night. Typically this is a osmotic diarrhea and not a secretory diarrhea presentation. Since she is presenting more like a secretory diarrhea with a mixed osmotic diarrhea. I recommended to her that she continue pancreatic enzymes at a higher dosage. However she does not have any improvement with her symptoms of diarrhea with pancreatic enzymes. Therefore she stopped her bile acid sequestrant and she stopped her pancreatic enzymes. For now she is back on Imodium every day and she says this helps her diarrhea. I think she is mostly having an osmotic diarrhea that is causing her symptoms of urgency and frequency of stool on a daily basis. I do not think her diarrhea is associated with any dental issues that she is experiencing. Particularly dental issues associated with diarrhea are secondary to inflammatory bowel disease. I will check her stools for osmotic gradient and it should be less than 50 if this is a true osmotic diarrhea versus a secretory diarrhea where her gradient would be greater than 50. In the meantime we will check a repeat fecal elastase, gastrin, chromogranin A and other biochemical test. If it is all normal then she may need a repeat colonoscopy with biopsies of the colon for microscopic colitis and biopsies of the small bowel. I think her osmotic diarrhea could be secondary to her nerves too. I will put her on Xanax at night and Xifaxan. She will call with an update. (4) Celiac disease: Status: Chronic Plan: By her tissue transglutaminase and endomysial antibody she should not be having any diarrhea from celiac disease. There is a possibility of microscopic colitis is causing her symptoms. She is not on any nonsteroidals that would be associated with causing a flare. (5) Dysphagia: Status: Acute Plan: I will perform an upper endoscopy to perform an upper GI tract. Medications: New rifaximin (Xifaxan) 550 mg PO TID 42 tabs 0RF 14 days alprazolam 1 mg PO QHS 30 tabs 1RF I have examined the patient and the H&P has been reviewed. There are no clinical changes since date of exam.
--- NOTE | 2023-10-09 07:27 | PCM.POST.ANE ---
Anesthesia: Postop Eval I Current Vital Signs Temperature: 97.5 F Pulse Rate: 16 Blood Pressure: 110/71 Respiratory Rate: 16 Pulse Ox: 97 Oxygen Delivery Method: Room Air Assessment Airway patent: Yes Spontaneous unlabored respirations: Yes Mental status: Asleep nausea: No Vomiting: No Anesthesia Complication: No Fluid Hydration Crystalloid volume administer (ml): 400 Total IV fluid infused: 400 Progress Note Anesthesia document: Postop Eval 1 completed: Yes
--- NOTE | 2023-10-09 07:29 | OP.CCLET_ITS ---
10/09/2023 Fadi Doll Re : Upper GI endoscopy procedure for Krystal Carver Dear Anibal This procedure was performed on Monday, October 09, 2023. My impressions and recommendations are as follows: Impressions : - Z-line irregular, 39 cm from the incisors. Biopsied. - Small hiatal hernia. - Erythematous mucosa in the gastric body and antrum. Biopsied. - Mucosal nodule found in the duodenum. Biopsied. - Erythematous duodenopathy. Biopsied. Recommendations : - Discharge patient to home. - Resume previous diet. - Continue present medications. - Await pathology results. My findings are described in the full procedure note, which is enclosed. If I can be of further assistance, please feel free to contact me at . Sincerely, Darrel Lezama, 10/09/2023 7:29:07 AM This report has been signed electronically.
--- NOTE | 2023-10-09 07:29 | OP.EGD_ITS ---
Patient Name: Krystal Carver Procedure Date: 10/09/2023 6:20 AM Date of : 1955 Age: 68 Procedure: Upper GI endoscopy Indications: Epigastric abdominal pain, Functional Dyspepsia, Dysphagia Providers: Darrel Lezama DO Medicines: Monitored Anesthesia Care Patient Profile: This is a 68 year old female. Refer to note in patient chart for documentation of history and physical. Patient has symptoms of acute abdominal cramping, acute epigastric abdominal pain, acute dysphagia and dysphagia with both liquids and solids. Complications: No immediate complications. Procedure: Pre-Anesthesia Assessment: - Prior to the procedure, a History and Physical was performed, and patient medications and allergies were reviewed. The patient is competent. The risks and benefits of the procedure and the sedation options and risks were discussed with the patient. All questions were answered and informed consent was obtained. Patient identification and proposed procedure were verified by the physician in the pre-procedure area. Mental Status Examination: alert and oriented. Airway Examination: normal oropharyngeal airway and neck mobility. Respiratory Examination: clear to auscultation. CV Examination: normal. Prophylactic Antibiotics: The patient does not require prophylactic antibiotics. Prior Anticoagulants: The patient has taken no anticoagulant or antiplatelet agents. ASA Grade Assessment: II - A patient with mild systemic disease. After reviewing the risks and benefits, the patient was deemed in satisfactory condition to undergo the procedure. The anesthesia plan was to use monitored anesthesia care (MAC). Immediately prior to administration of medications, the patient was re-assessed for adequacy to receive sedatives. The heart rate, respiratory rate, oxygen saturations, blood pressure, adequacy of pulmonary ventilation, and response to care were monitored throughout the procedure. The physical status of the patient was re-assessed after the procedure. After obtaining informed consent, the endoscope was passed under direct vision. Throughout the procedure, the patient's blood pressure, pulse, and oxygen saturations were monitored continuously. The Endoscope was introduced through the mouth, and advanced to the second part of duodenum. The upper GI endoscopy was accomplished without difficulty. The patient tolerated the procedure well. Scope In: 7:14:12 AM Scope Out: 7:20:40 AM Total Procedure Duration Time 0 hours 6 minutes 28 seconds Findings: The Z-line was irregular and was found 39 cm from the incisors. Biopsies were taken with a cold forceps for histology. Verification of patient identification for the specimen was done. Estimated blood loss was minimal. A small hiatal hernia was present. Diffuse mildly erythematous mucosa without bleeding was found in the gastric body and in the gastric antrum. Biopsies were taken with a cold forceps for histology. Verification of patient identification for the specimen was done. Biopsies were taken with a cold forceps for Helicobacter pylori testing. Verification of patient identification for the specimen was done. Estimated blood loss was minimal. A single 4 mm mucosal nodule with a localized distribution was found in the duodenal bulb. Biopsies were taken with a cold forceps for histology. Verification of patient identification for the specimen was done. Estimated blood loss was minimal. Patchy mildly erythematous mucosa without active bleeding and with no stigmata of bleeding was found in the duodenal bulb. Biopsies were taken with a cold forceps for histology. Verification of patient identification for the specimen was done. Estimated blood loss was minimal. Impression: - Z-line irregular, 39 cm from the incisors. Biopsied. - Small hiatal hernia. - Erythematous mucosa in the gastric body and antrum. Biopsied. - Mucosal nodule found in the duodenum. Biopsied. - Erythematous duodenopathy. Biopsied. Recommendation: - Discharge patient to home. - Resume previous diet. - Continue present medications. - Await pathology results. Procedure Code(s): --- Professional --- 81732, Esophagogastroduodenoscopy, flexible, transoral; with biopsy, single or multiple CPT copyright 2021 [employer]. All rights reserved. The codes documented in this report are preliminary and upon information scientist review may be revised to meet current compliance requirements. Darrel Lezama DO 10/09/2023 7:29:07 AM This report has been signed electronically. Number of Addenda: 0 Note Initiated On: 10/09/2023 6:20 AM
--- NOTE | 2023-10-09 08:24 | PCM.POSTANE2 ---
Anesthesia Postop Eval I Sum Postop Eval Completion status Anesthesia document: Postop Eval 1 completed: Yes Anesthesia Postop Eval I Summary Anesthesia Postop Eval I Summary: Anesthesia Postop Eval I: Assessment Summary Airway patent Yes 10/09/23 07:29 [email or web address] Spontaneous unlabored Yes 10/09/23 07:29 [email or web address] respirations Mental status Asleep 10/09/23 07:29 [email or web address] nausea No 10/09/23 07:29 [email or web address] Vomiting No 10/09/23 07:29 [email or web address] Anesthesia Postop Eval I: Fluid Summary Crystalloid volume administer 400 10/09/23 07:29 [email or web address] (ml) Colloids volume administered ( ml) Blood Product volume administered (ml) Total IV fluid infused 400 10/09/23 07:29 [email or web address] Anesthesia Postop Eval I: Summary Notes Anesthesia Complication No 10/09/23 07:29 [email or web address] Anesthesia Complication Comment: Post-operative progress note Anesthesia: Postop Eval II Evaluation Mental status: Awake Pain Level: 0 nausea: No Vomiting: No Complications Anesthesia Complication: No
== END 2023-10-09 08:15 | disposition home or self-care (01) ==
LOC: EN 05:50 → AC 05:51
PROVIDERS: PCP Nurse Practitioner Family; Referring Provider Nurse Practitioner Family; Visit Provider Internal Medicine Gastroenterology
PROC: 0DJ08ZZ Inspection of Upper Intestinal Tract, Via Natural or Artificial Opening Endoscopic (ICD-10-PCS; CPT 43235; principal; 2023-10-09 06:55)
DX: K86.89 Other specified diseases of pancreas (principal); K44.9 Diaphragmatic hernia without obstruction or gangrene; R13.10 Dysphagia, unspecified; K58.0 Irritable bowel syndrome with diarrhea; K90.0 Celiac disease; K31.89 Other diseases of stomach and duodenum; K29.70 Gastritis, unspecified, without bleeding; K31.A0 Gastric intestinal metaplasia, unspecified
CPT/HCPCS: 43239; 88305; 88312; 88342; J7120; J2405

== ENCOUNTER 2023-10-27 15:04 | Emergency (ER) | payer BC, SELFPAY ==
[2023-10-27 15:04] VITALS: BP 149/85; PULSE 94; RESP 16; TEMP 36.6; O2SAT 97; BMI 25.7
--- NOTE | 2023-10-27 15:30 | EDS_ITS ---
HPI History of Present Illness Chief Complaint: Laceration Detail of Chief Complaint: Laceration to left index finger Informant: patient Narrative Narrative: Patient presents to the emergency department complaint of a laceration to her left index finger. Patient states that she was using some imer to cut some plants and accidentally cut her left index finger. Patient is right-hand dominant. Patient unsure of her last tetanus shot. Patient here because she wants a tetanus shot. [facility] Medical History Post-menopausal Anemia Back pain Chronic cough Leg cramps Other abnormal tumor markers Wears partial dentures History of IBS Non-smoker Left ankle sprain Chronic neck and back pain Diarrhea Wears glasses Anxiety Arthritis Restless legs History of hiatal hernia Celiac disease Gastric reflux Shortness of breath on exertion History of stress test Anxiety GERD (gastroesophageal reflux disease) HTN (hypertension) Celiac disease Home Medications ?Medication ?Instructions ?Recorded ?Last Taken ?Type multivitamin 1 tab PO DAILY 12/26/21 Unknown History digestive enzymes 1 cap PO DAILY 05/17/23 Unknown History escitalopram oxalate 20 mg tablet 20 mg PO DAILY 05/17/23 Unknown History valsartan 80 mg tablet 80 mg PO DAILY 05/17/23 Unknown History budesonide 3 mg 9 mg (3 x 3 mg) PO DAILY #90 ea 07/30/23 Unknown Rx capsule,delayed,extended release alprazolam 1 mg tablet 1 mg PO QHS #30 tabs 10/04/23 Unknown Rx magnesium 250 mg tablet 250 mg PO DAILY 10/07/23 Unknown History vitamin B12 500 mcg-folic acid 400 1 tab PO DAILY 10/07/23 Unknown History mcg tablet Allergy/AdvReac Type Severity Reaction Status Date / Time latex Allergy blisters Verified 10/27/23 15:04 Family History Mother Hypertension Thyroid disorder Surgical History History of Juventino fundoplication (~08/2020) History of bilateral breast implants History of esophagogastroduodenoscopy (EGD) History of femoral hernia repair History of left oophorectomy (~04/22/17) History of colonoscopy Social History Smoking Status: Never smoker substance use type: does not use ROS ROS ED Review of Systems ROS Unobtainable: other Constitutional Constitutional ED: Reports lethargy; Denies chills, fever(s), sweats or weight loss Eyes Eyes: Denies blurry vision, change in vision or diplopia ENT ENT ED: Denies rhinorrhea or sore throat Cardiovascular Cardiovascular: Denies chest pain, orthopnea or racing heartbeat Respiratory/Chest Respiratory/Chest: Denies cough, dyspnea, dyspnea on exertion, orthopnea or s putum Gastrointestinal Gastrointestinal: Denies abdominal pain, diarrhea, nausea or vomiting Genitourinary Genitourinary ED: Denies dysuria, hematuria or urinary frequency Musculoskeletal Musculoskeletal: Denies arthralgias, back pain, myalgias or neck pain Integumentary Reports other Details: Laceration to left index finger ; Denies abscess, Abrasions or rash Neurologic Neurologic: Denies headache(s) or weakness Psychiatric Psychiatric: Denies anxiety, depression or suicidal thoughts Endocrine Endocrinology: Denies polydipsia, polyphagia or polyuria Hematologic/Lymphatic Hematologic/Lymphatic: Denies easy bleeding, easy bruising or lymphadenopathy Allergic/Immunologic Allergic/Immunologic ED: Denies mouth swelling, tongue swelling or urticaria EXAM Physical Exam Const Vital Signs: 10/27/23 15:04 Temperature 98 F Temperature Source Temporal Pulse Rate 94 Respiratory Rate 16 Blood Pressure 149/85 H Blood Pressure Mean 106 Pulse Ox 97 Oxygen Delivery Method Room Air Positive well nourished and well developed General Appearance ED: well developed and NAD HEENT Reports TM's clear and moist mucous membranes normocephalic and atraumatic; Negative for trauma or tenderness Tympanic Membrane ED: Yes TM's clear Eyes PERRL and EOMs intact bilaterally General Eye ED: Negative for pale conjunctiva or scleral icterus Neck no lymphadenopathy, supple and no JVD General: Negative for tenderness Chest Wall inspection of chest normal and palpation of chest normal Chest: Negative for tenderness Resp normal respiratory effort and clear to auscultation bilaterally Effort and Inspection: Negative for respiratory distress or pain with movement Auscultation: Negative for rhonchi, wheezes or diminished lung sounds Cardio regular rate, regular rhythm, S1 normal heart sound, S2 normal heart sound and no murmurs Peripheral Pulses: pulses 2+ throughout GI normal to inspection, nondistended, normoactive bowel sounds, soft to palpation, non-tender, non-distended and no masses Back/Spine no CVA tenderness and no thoracic nor lumbar tenderness Extremity Extremity Narrative: Left index finger-patient has a 2 cm laceration over the pulp of the distal phalanx of the left index finger that is superficial just through the dermis almost flap-like. No significant bleeding until I started to manipulated and evaluate the wound. Patient has normal range of motion at the DIP and PIP joint. Exam otherwise unremarkable. General Extremety ED: Negative for edema General Extremity: Negative for edema Neuro oriented x3, CN's II-XII intact bilaterally, no sensory deficits noted and gait normal Sensorium / Orientation: awake, alert, oriented to person, oriented to place and oriented to time Motor Exam: strength 5/5 throughout and strength abnormal Psych mental status grossly normal Skin no rashes or lesions noted and no wounds MDM MDM MDM Narrative Medical decision making narrative: Patient has a 2 cm flap-like superficial laceration through the dermis of the pulp of the distal phalanx of the left index finger. Patient cleaned the wound at home and applied bacitracin to it. It looks good and it is well- approximated. We discussed treatment options such as suturing versus Steri- Strips or Dermabond. She does not want stitches and I feel this is reasonable as I feel this wound will heal well regardless of which treatment we pick. Given that the imer were dirty I did not want to use Dermabond to trap a potential infection. Will irrigate the wound with saline and dry and will use Steri-Strips to keep the wound approximated. Advised her to return if increasing pain, redness, swelling, purulent drainage or condition worsening way. Patient will be given a tetanus booster. Discharge Plan Triage Chief Complaint: Laceration ED Provider: Franklin Kaur Dx/Rx/DC Orders Clinical Impression: Finger laceration Instructions: ED Laceration, Hand: All Closures, ED Laceration Superficial No Stitch Prescriptions: No Action digestive enzymes Capsule 1 cap PO DAILY Rx Instructions: administer with food; swallow whole; do not crush/chew/dissolve/break/cut valsartan 80 mg tablet 80 mg PO DAILY alprazolam 1 mg tablet 1 mg PO QHS Qty: 30 1RF escitalopram oxalate 20 mg tablet 20 mg PO DAILY multivitamin [Multi-Day] Tablet 1 tab PO DAILY vitamin [id number] acid 500-400 mcg tablet 1 tab PO DAILY Rx Instructions: administer with a meal magnesium 250 mg tablet 250 mg PO DAILY budesonide 3 mg capsule,delayed,extend.release 9 mg PO DAILY Qty: 90 2RF Primary Care Provider: Payal Barnett Referrals: Payal Barnett, [facility] [Primary Care Provider] - 3-5 Days Print Language: Luxembourger Disposition Disposition: Home, Self Care
[2023-10-27] MEDS: Diphth,Pertuss(Acell),Tet Vac 0.5 ML Vial IM (15:36)
== END 2023-10-27 15:52 | disposition home or self-care (01) ==
LOC: ED 15:39
PROVIDERS: Emergency Provider Emergency Medicine; PCP Nurse Practitioner Family; Visit Provider Emergency Medicine
DX: S61.211A Laceration without foreign body of left index finger without damage to nail, initial encounter (principal); Z23 Encounter for immunization; W27.2XXA Contact with scissors, initial encounter; I10 Essential (primary) hypertension; K21.9 Gastro-esophageal reflux disease without esophagitis; Z79.899 Other long term (current) drug therapy
CPT/HCPCS: 90715; 99282

== ENCOUNTER → 2023-11-08 | Outpatient (CLI) | payer BC, SELFPAY ==
[2023-11-10 07:07] LABS: Carbohydrate AG 19-9 74 U/mL (0-35)
== END | disposition home or self-care (01) ==
LOC: LAB 15:20
PROVIDERS: PCP Nurse Practitioner Family; Referring Provider Internal Medicine Gastroenterology; Visit Provider Internal Medicine Gastroenterology
DX: R97.8 Other abnormal tumor markers (principal)
CPT/HCPCS: 36415; 86301

== ENCOUNTER → 2023-12-04 | Outpatient (CLI) | payer BC, SELFPAY ==
--- NOTE | 2023-12-04 13:11 | RAD_ITS ---
INDICATION: EPI -- prior to MRCP to rule out possible foreign object EXAMINATION/TECHNIQUE: X-RAY - XR Abdomen 1 View COMPARISON: No relevant prior comparison study available FINDINGS: BOWEL GAS PATTERN: Non-obstructive. Residual contrast in bowel loops from recent contrast study. FREE AIR: Not assessed on a single supine view. ORGANOMEGALY: Not seen. CALCIFICATIONS: No abnormal calcifications observed. LOWER CHEST: No acute pathology. BONES AND SOFT TISSUES: No acute pathology. RAD/Abdomen Single View IMPRESSION: No demonstrated radiopaque foreign body. Electronically Signed: Arya Rdz MD at 10:12 EDT ,
== END | disposition home or self-care (01) ==
PROVIDERS: PCP Nurse Practitioner Family; Referring Provider Internal Medicine Gastroenterology; Visit Provider Internal Medicine Gastroenterology
DX: K86.81 Exocrine pancreatic insufficiency (principal)
CPT/HCPCS: 74018

== ENCOUNTER → 2023-12-06 | Outpatient (CLI) | payer BC, SELFPAY ==
--- NOTE | 2023-12-06 12:33 | MRI_ITS ---
Abdominal MRI and MRCP without contrast 12/06/2023 1:02 PM COMPARISON: None CLINICAL HISTORY: EPI TECHNIQUE: Multiplanar and multisequence MR images of the abdomen were obtained with MRCP sequence. Three-dimensional post-processing reconstructions were performed. FINDINGS: Liver: Unremarkable Gallbladder: Not well visualized. Bile Ducts: Not well visualized. Pancreas: Unremarkable Spleen: Unremarkable Adrenal Glands: Unremarkable Kidneys: Bilateral simple cysts. GI Tract: Unremarkable Lymphadenopathy: Absent Ascites: Absent Bones: No suspicious lesions MRI/MRCP Abdomen without Contrast IMPRESSION: No acute abnormalities. Electronically Signed: yTler Cruz MD at 20:51 EDT ,
== END | disposition home or self-care (01) ==
LOC: MRI 12:32
PROVIDERS: PCP Nurse Practitioner Family; Referring Provider Internal Medicine Gastroenterology; Visit Provider Internal Medicine Gastroenterology
DX: K86.81 Exocrine pancreatic insufficiency (principal)
CPT/HCPCS: 74181

== ENCOUNTER → 2023-12-31 | Outpatient (CLI) | payer BC, SELFPAY ==
--- NOTE | 2023-12-31 12:15 | BI_ITS ---
MAMMOGRAPHY - BILATERAL SCREENING REASON FOR EXAM: Female, 68 years old. Routine annual screening examination. PERTINENT HISTORY: Non-contributory. Bilateral breast implants. TECHNIQUE: Digital bilateral breast sada (3D mammographic acquisition) in the CC and MLO projections. 2-D mediolateral oblique (MLO) and craniocaudad (CC) views of both breasts were obtained. CAD: Full Field Digital Mammography with Computer Added Detection was performed. COMPARISON: Comparison is made with prior study dated December 27, 2022 from February 18, 2022. FINDINGS: Breast Composition: The breasts are heterogeneously dense, which may obscure small masses. There are no dominant masses or suspicious calcifications. Stable appearance of the bilateral breast implants. No other significant abnormalities are identified. There has been no significant change since the prior study. BI/SCRN MAMM (CAD)W/SADA BILAT IMPRESSION: Stable bilateral screening mammogram. Yearly follow-up mammogram recommended. (A) ASSESSMENT CATEGORY: BIRADS Category 2: Benign. A letter regarding these results will be sent to the patient by the facility within 30 days. Approximately 10% of breast cancers are not detected by mammography. A normal mammogram should not delay biopsy of a clinically suspicious abnormality. [id number] Electronically Signed: Emerson Rico MD at 13:07 EDT ,
--- NOTE | 2023-12-31 12:27 | BD_ITS ---
STUDY: DUAL ENERGY X-RAY ABSORPTIOMETRY / DXA REASON FOR EXAM: Female, 68 years old. 627.8Menopausal postmenopausalBONE DENSITY REASON FOR EXAM TECHNIQUE: Bone Mineral Density (BMD) measurements of lumbar spine and bilateral hips were obtained. COMPARISON: Comparison is made with prior study dated December 19, 2021. FINDINGS: Lumbar Spine (L1-L4): g/cm2 (0.812) / T-score (-2.1) / Z-score (0.0) Findings are suggestive of osteopenia with a high fracture risk. Left Femur Total: g/cm2 (0.818) / T-score (-1.0) / Z-score (0.5) Left Femoral Neck: g/cm2 (0.670) / T-score (-1.6) / Z-score (0.2) Right Femur Total: g/cm2 (0.747) / T-score (-1.6) / Z-score (-0.1) Right Femoral Neck: g/cm2 (0.622) / T-score (-2.0) / Z-score (-0.3) The T-Scores on the most recent prior examination were: Lumbar Spine (L1-L4): There has been improvement of bone density since the previous examination. Left Femur Total: which represents a worsening of 2.3%. Right Femur Total: which represents a worsening of 1.7%. BD/Dexa Bone Density Study IMPRESSION: The patient is considered osteopenic as outlined below according to World Jean Organization (WHO) criteria with a high fracture risk. There has been worsening of bone density since the previous examination. Reference Information: The T-score is the number of standard deviations above or below the standard which is normal for young adults at their peak bone mineral density. The World Health Organization (WHO) interprets the T-scores as follows: Above -1 Normal bone density Between -1 and -2.5 Osteopenia Equal to / or below -2.5 Osteoporosis As a practical clinical guideline, osteopenia may be graded as follows: Mild -1 through -1.5 Moderate -1.6 through -2.0 Severe -2.1 through -2.4 The Z-score is the number of standard deviations above or below age-matched controls. A Z-score of less than -1.5 would be considered abnormal. References: 1. NIH Osteoporosis and Related Bone Diseases www osteo.org 2. International Society for Clinical Densitometry www iscd.org 3. National Osteoporosis Foundation www nof.org Electronically Signed: Emerson Rico MD at 8:20 EDT ,
== END | disposition home or self-care (01) ==
LOC: OPBD 12:15
PROVIDERS: PCP Nurse Practitioner Family; Referring Provider Nurse Practitioner Family; Visit Provider Nurse Practitioner Family
DX: Z12.31 Encounter for screening mammogram for malignant neoplasm of breast (principal); Z78.0 Asymptomatic menopausal state
CPT/HCPCS: 77063; 77067; 77080

== ENCOUNTER → 2024-03-13 | Outpatient (CLI) | payer BC, SELFPAY ==
[2024-03-13 15:31] LABS: Absolute Lymphocyte Count 1.55 X10^3/uL (0.83-4.51); Absolute Neutrophil Count 2.8 X10^3/uL (2.0-7.7); Basophil# 0.04 X10^3/uL; Basophil% 0.7 % (0-1); Eosinophil# 0.24 X10^3/uL; Eosinophils% 4.4 % (0-5); Hematocrit 39.7 % (37-47); Hemoglobin 13.3 g/dL (12.0-15.0); Lymphocyte # 1.55 X10^3/ul (0.83-4.51); Lymphocyte % 28.1 % (19-41); Mean Corp Hgb Conc 33.5 g/dL (32-36); Mean Corpuscular Hgb 34.8 pg (27.0-32.0); Mean Corpuscular Volume 103.9 fL (81-99); Mean Platelet Vol. 10.3 fl (6.2-12.0); Monocyte# 0.86 X10^3/uL; Monocyte% 15.6 % (0-10); NRBC Flagged by Analyzer 0 % (0-5); Neutrophil % 50.8 % (47-70); Platelet Count 295 K/mm3 (150-450); RBC Distribution Width CV 13.4 % (11.6-14.6); RBC Distribution Width SD 51.8 fl (35.1-43.9); Red Blood Count 3.82 M/mm3 (4.2-5.4); White Blood Count 5.5 K/mm3 (4.4-11.0)
[2024-03-13 16:00] LABS: Vitamin D,25 Hydroxy 45.5 ng/mL
[2024-03-13 16:01] LABS: Hemoglobin A1c 5.3 % (3.8-5.6)
[2024-03-13 16:05] LABS: ALB/GLOB Ratio 0.9 RATIO (0.9-2.4); AST(SGOT) 30 U/L (15-37); Alanine Aminotransfer ALT/SGPT 41 U/L (13-56); Albumin, Serum 3.7 g/dL (3.2-5.0); Alkaline Phosphatase 101 U/L (45-117); Anion Gap 5 (5-15); BUN 18 mg/dL (7-18); BUN/Creat Ratio 24.5 RATIO (10-20); Calcium,Total 9.3 mg/dL (8.5-10.1); Chloride 110 mmol/L (98-107); Cholesterol 144 mg/dL (200); Creatinine, Serum 0.73 mg/dL (0.55-1.02); EST Glomerular Filtration Rate 83 mL/min (>60); Est Glom Filt Rate - Afr Amer 101 mL/min (>60); Ferritin 350 ng/mL (8-252); Globulin 3.9 g/dL (2.2-4.2); Glucose 92 mg/dL (74-106); High Density Lipoprotein 68 mg/dL; Iron 135 ug/dL (50-170); Iron Binding Capacity,Total 308 ug/dL (250-450); PERCENT IRON SATURATION 43.8 % (15.0-55.0); Protein, Total 7.6 g/dL (6.4-8.2); Sodium Level 140 mmol/L (136-145); Triglycerides 70 mg/dL; Very Low Density Lipoprotein 14 mg/dL (5-40)
== END | disposition home or self-care (01) ==
PROVIDERS: PCP Nurse Practitioner Family; Referring Provider Nurse Practitioner Family; Visit Provider Nurse Practitioner Family
DX: D64.9 Anemia, unspecified (principal); Z13.220 Encounter for screening for lipoid disorders; R73.03 Prediabetes; E55.9 Vitamin D deficiency, unspecified; I10 Essential (primary) hypertension
CPT/HCPCS: 36415; 80053; 80061; 82306; 82728; 83036; 83540; 83550; 84443; 85025

== ENCOUNTER → 2024-05-28 | Outpatient (CLI) | payer BC, SELFPAY ==
[2024-06-01 15:07] LABS: Carbohydrate Ag 19-9 2261 53 U/mL (0-35)
== END | disposition home or self-care (01) ==
LOC: LAB 14:23
PROVIDERS: PCP Nurse Practitioner Family; Referring Provider Internal Medicine Gastroenterology; Visit Provider Internal Medicine Gastroenterology
DX: R97.8 Other abnormal tumor markers (principal)
CPT/HCPCS: 36415; 86301

== ENCOUNTER → 2024-11-02 | Outpatient (CLI) | payer BC, SELFPAY ==
[2024-11-02 14:21] LABS: Hematocrit 38.9 % (37-47); Hemoglobin 12.9 g/dL (12.0-15.0); Immature Granulocytes Count 0.020 X10^3/uL (0.0-0.0); Mean Corp Hgb Conc 33.2 g/dL (32-36); Mean Corpuscular Volume 103.7 fL (81-99); Mean Platelet Vol. 10.4 fl (6.2-12.0); NRBC Flagged by Analyzer 0 % (0-5); Platelet Count 214 K/mm3 (150-450); RBC Distribution Width CV 13.9 % (11.6-14.6); RBC Distribution Width SD 53.2 fl (35.1-43.9); Red Blood Count 3.75 M/mm3 (4.2-5.4); White Blood Count 4.3 K/mm3 (4.4-11.0)
[2024-11-02 15:24] LABS: AST(SGOT) 30 U/L (<=31); Alanine Aminotransfer ALT/SGPT 32 U/L (<=34); Albumin, Serum 3.9 g/dL (3.4-4.8); Alkaline Phosphatase 101 U/L (35-104); Anion Gap 9 (5-15); BUN 17 mg/dL (4-19); BUN/Creat Ratio 24.5 RATIO (10-20); Calcium,Total 9.1 mg/dL (7.6-11.0); Carbon Dioxide 23.6 mmol/L (21.0-32.0); Chloride 108 mmol/L (98-108); Globulin 2.8 g/dL (2.2-4.2); Glucose 101 mg/dL (70-99); Potassium 4.3 mmol/L (3.3-5.1)
[2024-11-02 15:26] LABS: CRP < 3.00 mg/L (0.0-3.0)
[2024-11-04 16:09] LABS: Immunoglobulin A 133 mg/dL (87-352)
== END | disposition home or self-care (01) ==
LOC: LAB 13:50
PROVIDERS: PCP Nurse Practitioner Family
DX: K86.81 Exocrine pancreatic insufficiency (principal); K90.0 Celiac disease; R19.7 Diarrhea, unspecified; K21.00 Gastro-esophageal reflux disease with esophagitis, without bleeding
CPT/HCPCS: 36415; 80053; 82784; 83516; 85025; 86140; 86255

== ENCOUNTER → 2024-11-05 | Outpatient (CLI) | payer BC, SELFPAY ==
[2024-11-09 16:08] LABS: Pancreatic Elastase, Fecal 314 (>200)
[2024-11-10 08:08] LABS: Calprotectin, Stool 28 ug/g (0-120)
== END | disposition home or self-care (01) ==
PROVIDERS: PCP Nurse Practitioner Family
DX: K58.9 Irritable bowel syndrome, unspecified (principal); K86.81 Exocrine pancreatic insufficiency; K90.0 Celiac disease; K21.00 Gastro-esophageal reflux disease with esophagitis, without bleeding; R19.7 Diarrhea, unspecified
CPT/HCPCS: 82653; 83993

== ENCOUNTER → 2024-12-18 | Outpatient (CLI) | payer BC, SELFPAY ==
--- NOTE | 2024-12-18 13:18 | CT_ITS ---
PROCEDURE: BRAIN/HEAD WITHOUT CONTRAST 12/18/2024 REASON FOR EXAM: CT HEAD OR BRAIN, WITHOUT CONTRAST ([id number]) : MEMORY LOSS, CONFUSI TECHNIQUE: Procedure Code: CTBR Modality: CT Procedure: BRAIN/HEAD WITHOUT CONTRAST Coronal and Sagittal reconstruction series were provided. One or more dose reduction techniques were used (e.g., Automated exposure control, adjustment of the mA and/or kV according to patient size, use of iterative reconstruction technique. RADIATION DOSE SUMMARY: CTDI Vol 44.99 mGy DLP :846.73 mGycm COMPARISON: none FINDINGS: Relatively accentuated bilateral cerebral periventricular deep white matter hypodensities suggesting hypoperfusion with scattered small hypodense foci. Stoll-white matter differentiation is maintained. Right basal ganglia calcifications. Normal CT appearance of the posterior fossa structures. No intracerebral or extra axial hemorrhage. No definite calvarial fractures. Unremarkable ventricular system Prominent cortical sulci and extra-axial CSF spaces No midline shifts or deformity. The osseous structures in the skull base are unremarkable. The scanned paranasal sinuses are unremarkable. Vascular atheromatous calcifications. CT/Brain/Head without Contrast IMPRESSION: No intracerebral or extra axial hemorrhage. No acute cerebrovascular insult. If clinical symptoms persist, further evaluati on with MRI may be considered as clinically warranted. Bilateral cerebral mild microvascular ischemic changes. Reading Location[facility]
== END | disposition home or self-care (01) ==
LOC: CT 13:13
PROVIDERS: PCP Nurse Practitioner Family; Referring Provider Nurse Practitioner Family; Visit Provider Nurse Practitioner Family
DX: R41.3 Other amnesia (principal)
CPT/HCPCS: 70450

== ENCOUNTER → 2025-01-13 | Outpatient (CLI) | payer BC, SELFPAY ==
--- NOTE | 2025-01-13 13:16 | BI_ITS ---
EXAM: SCRN MAMM (CAD)W/SADA BILAT DATE: 01/13/2025 CLINICAL HISTORY: F, Age 69 y/o , SCRN MAMM (CAD)W/SADA BILAT DUE AFTER 12/30/2024 No family history. Bilateral breast implants. TECHNIQUE: Procedure Code: [id number] Modality: MG Procedure: SCRN MAMM (CAD)W/SADA BILAT COMPARISON: Prior exam(s) dated December 31, 2023.. FINDINGS: TISSUE DENSITY: The breasts are heterogeneously dense, which may obscure small masses. Bilateral Breast Mammographic Findings: No significant masses, calcifications or other abnormalities are identified. Stable bilateral breast implants. No suspicious masses, areas of developing architectural distortion, or suspicious calcifications. There has been no significant interval change. BI/SCRN MAMM (CAD)W/SADA BILAT IMPRESSION: Stable bilateral screening mammogram. OVERALL FINAL ASSESSMENT BI-RADS 2: BENIGN RECOMMENDATION: Routine annual follow-up in 1 Year Additional Recommendation none A letter with findings and recommendations will be mailed to the patient. Reading Location: [place] [id number]
--- NOTE | 2025-01-13 13:16 | BI_ITS ---
EXAM: SCRN MAMM (CAD)W/SADA BILAT DATE: 01/13/2025 CLINICAL HISTORY: F, Age 69 y/o , SCRN MAMM (CAD)W/SADA BILAT DUE AFTER 12/30/2024 No family history. Bilateral breast implants. TECHNIQUE: Procedure Code: [id number] Modality: MG Procedure: SCRN MAMM (CAD)W/SADA BILAT COMPARISON: Prior exam(s) dated December 31, 2023.. FINDINGS: TISSUE DENSITY: The breasts are heterogeneously dense, which may obscure small masses. Bilateral Breast Mammographic Findings: No significant masses, calcifications or other abnormalities are identified. Stable bilateral breast implants. No suspicious masses, areas of developing architectural distortion, or suspicious calcifications. There has been no significant interval change. BI/SCRN MAMM (CAD)W/SADA BILAT IMPRESSION: Stable bilateral screening mammogram. OVERALL FINAL ASSESSMENT BI-RADS 2: BENIGN RECOMMENDATION: Routine annual follow-up in 1 Year Additional Recommendation none A letter with findings and recommendations will be mailed to the patient. Reading Location: [place] [id number]
== END | disposition home or self-care (01) ==
LOC: OPBI 13:15
PROVIDERS: PCP Nurse Practitioner Family; Referring Provider Nurse Practitioner Family; Visit Provider Nurse Practitioner Family
DX: Z12.31 Encounter for screening mammogram for malignant neoplasm of breast (principal)
CPT/HCPCS: 77063; 77067

== ENCOUNTER → 2025-01-14 | Outpatient (CLI) | payer BC, SELFPAY ==
--- NOTE | 2025-01-14 11:02 | MRI_ITS ---
PROCEDURE: BRAIN W/WO CONTRAST 01/14/2025 REASON FOR EXAM: MEMORY CHANGE TECHNIQUE: Procedure Code: [id number] Modality: MR Procedure: BRAIN W/WO CONTRAST Multiplanar and multisequence images were obtained. CONTRAST: 13 cc Clariscan IV. COMPARISON: CT head dated 12/18/24. FINDINGS: Scattered nonspecific FLAIR hyperintense foci are noted within the bilateral cerebral white matter, without corresponding enhancement. This probably represents mild chronic microvascular ischemic changes. Mild right inferior cerebellar tonsillar ectopia. The remainder of the brain parenchyma appears unremarkable. The ventricles are normal in size and configuration. The corpus callosum, septum pellucidum, pituitary gland, and cerebellar vermis appear unremarkable. The cervicomedullary junction appears unremarkable. Mucous retention cyst within the left maxillary sinus. The remainder of the paranasal sinuses and mastoid air cells are clear. Diffusion-weighted images demonstrate no acute process. No MR evidence of acute ischemia. No abnormal enhancement pattern. MRI/Brain W/WO Contrast IMPRESSION: Nonspecific, nonenhancing FLAIR hyperintense foci within the bilateral cerebral white matter, probably representing mild chronic microvascular ischemic changes. Mucous retention cyst, left maxillary sinus. Reading Location: [id number]
== END | disposition home or self-care (01) ==
LOC: MRI 10:55
PROVIDERS: PCP Nurse Practitioner Family; Referring Provider Nurse Practitioner Family; Visit Provider Nurse Practitioner Family
DX: R41.3 Other amnesia (principal)
CPT/HCPCS: 70553; A9575; A4216